=== PATIENT | female | born 1940 | race Caucasian/White ===

== ENCOUNTER → 2017-03-28 | Outpatient (CLI) | payer OTHER ==
[~2017-03-28] MED LIST: ASPI81CH43; ATEN1TAB38; ATOR10TA
[2017-03-28 13:05] LABS: Basophils # (auto) 0 uL; Basophils % (auto) 0.5 % (0.0-2.0); Eosinophils # (auto) 0.1 uL; Eosinophils % (auto) 1.9 % (0.0-7.0); Hemoglobin 15.9 g/dL (12.2-16.2); Lymphocytes # (auto) 1.8 uL; Lymphocytes % (auto) 24.1 % (10.0-50.0); Mean Corpuscular Hemoglobin 28.9 pg (28.0-32.0); Mean Corpuscular Hgb Conc. 33.1 g/dL (32.0-36.0); Mean Corpuscular Volume 87.4 fL (80.0-100.0); Mean Platelet Volume 7.4 fL (7.4-10.4); Monocytes # (auto) 0.5 uL; Monocytes % (auto) 6.2 % (0.0-12.0); Neutrophils # (auto) 4.9 uL; Neutrophils % (auto) 67.3 % (37.0-80.0); Platelet Count (auto) 365 10^3/uL (140-450); Red Cell Distribution Width 16.1 % (11.6-16.0); White Blood Cell 7.4 10^3/uL (4.4-10.8)
[2017-03-28 13:27] LABS: Partial Thromboplastin Time 28.5 sec (22.64-33.71); Prothrombin Time 10.8 sec (9.37-12.3)
[2017-03-28 13:43] LABS: Albumin 3.9 g/dL (3.4-5.0); Bilirubin, Total 0.4 mg/dL (0.2-1.0); Calcium 9.4 mg/dL (8.5-10.1); Potassium 4.2 mmol/L (3.5-5.1)
== END | disposition home or self-care (01) ==
LOC: LAB 12:46
PROVIDERS: ATTEND Internal Medicine
DX: E11.9 Type 2 diabetes mellitus without complications (principal); I10 Essential (primary) hypertension; Z01.818 Encounter for other preprocedural examination
CPT/HCPCS: 36415; 80053; 80061; 82043; 82306; 82607; 83036; 84439; 84443; 85025; 85610; 85652; 85730

== ENCOUNTER → 2017-04-19 | Outpatient (CLI) | payer OTHER ==
[2017-04-19 09:50] LABS: Basophils # (auto) 0.1 uL; Basophils % (auto) 0.9 % (0.0-2.0); Eosinophils # (auto) 0.1 uL; Eosinophils % (auto) 1.6 % (0.0-7.0); Hematocrit 47.4 % (36.0-46.0); Hemoglobin 16.1 g/dL (12.2-16.2); Lymphocytes # (auto) 1.5 uL; Mean Corpuscular Hemoglobin 29.3 pg (28.0-32.0); Mean Corpuscular Hgb Conc. 33.9 g/dL (32.0-36.0); Mean Corpuscular Volume 86.3 fL (80.0-100.0); Mean Platelet Volume 7.8 fL (7.4-10.4); Monocytes # (auto) 0.5 uL; Monocytes % (auto) 6.7 % (0.0-12.0); Neutrophils # (auto) 5.2 uL; Neutrophils % (auto) 70.8 % (37.0-80.0); Platelet Count (auto) 359 10^3/uL (140-450); Red Cell Distribution Width 15.9 % (11.6-16.0); White Blood Cell 7.4 10^3/uL (4.4-10.8)
[2017-04-19 10:05] LABS: INR 0.96 (0.9-1.15); Partial Thromboplastin Time 28.2 sec (22.64-33.71); Prothrombin Time 10.5 sec (9.37-12.3)
[2017-04-19 10:14] LABS: Albumin 3.9 g/dL (3.4-5.0); BUN/Creatinine Ratio 24.3; Bilirubin, Total 0.6 mg/dL (0.2-1.0); Calcium 9.5 mg/dL (8.5-10.1); Potassium 4.6 mmol/L (3.5-5.1); Total Protein 7.4 g/dL (6.4-8.2)
[2017-04-19 10:28] LABS: Urine Bilirubin Negative (Negative); Urine Blood Negative /uL (Negative); Urine Color Yellow (Yellow); Urine Glucose Normal (Normal); Urine Ketone Negative (Negative); Urine Nitrite Negative (Negative); Urine Urobilinogen Normal (Negative)
== END | disposition home or self-care (01) ==
LOC: LAB 09:29
PROVIDERS: ATTEND Specialist
DX: H25.11 Age-related nuclear cataract, right eye (principal); Z79.01 Long term (current) use of anticoagulants
CPT/HCPCS: 36415; 80053; 81003; 85025; 85610; 85730

== ENCOUNTER → 2017-07-31 | Outpatient (CLI) | payer OTHER ==
[2017-07-31 11:52] LABS: Basophils # (auto) 0 uL; Basophils % (auto) 0.3 % (0.0-2.0); CONDITION Y; Eosinophils # (auto) 0.2 uL; Hematocrit 44.1 % (36.0-46.0); Hemoglobin 14.7 g/dL (12.2-16.2); Lymphocytes # (auto) 1.4 uL; Lymphocytes % (auto) 17.4 % (10.0-50.0); Mean Corpuscular Hemoglobin 29.6 pg (28.0-32.0); Mean Corpuscular Hgb Conc. 33.4 g/dL (32.0-36.0); Mean Corpuscular Volume 88.7 fL (80.0-100.0); Mean Platelet Volume 7.5 fL (6.9-10.8); Monocytes # (auto) 0.5 uL; Monocytes % (auto) 6.3 % (0.0-12.0); Platelet Count (auto) 338 10^3/uL (140-450); Red Cell Distribution Width 15.7 % (11.8-14.3); White Blood Cell 8.1 10^3/uL (4.4-10.8)
[2017-07-31 12:06] LABS: INR 0.96 (0.9-1.15); Partial Thromboplastin Time 25.7 sec (22.64-33.71); Prothrombin Time 10.5 sec (9.37-12.3)
[2017-07-31 12:17] LABS: Albumin 3.6 g/dL (3.4-5.0); BUN/Creatinine Ratio 18.4; Bilirubin, Total 0.4 mg/dL (0.2-1.0); Calcium 9.2 mg/dL (8.5-10.1); Potassium 4.5 mmol/L (3.5-5.1); Total Protein 7.2 g/dL (6.4-8.2)
[2017-07-31 12:38] LABS: Urine Bilirubin Negative (Negative); Urine Blood Negative /uL (Negative); Urine Color Yellow (Yellow); Urine Glucose Normal (Normal); Urine Ketone Negative (Negative); Urine Nitrite Negative (Negative); Urine Urobilinogen Normal (Negative)
== END | disposition home or self-care (01) ==
LOC: LAB 11:22
PROVIDERS: ATTEND Specialist
DX: Z01.82 Encounter for allergy testing (principal); H25.12 Age-related nuclear cataract, left eye; D68.32 Hemorrhagic disorder due to extrinsic circulating anticoagulants; Z79.01 Long term (current) use of anticoagulants
CPT/HCPCS: 36415; 80053; 81003; 85025; 85610; 85730

== ENCOUNTER 2017-08-13 04:35 | Emergency (ER) | payer OTHER ==
[~2017-08-13] VITALS: Ht 165.1 cm; Wt 75.7 kg
[2017-08-13] MEDS ORDERED: cloNIDine HCL 0.1 MG TAB PO ONE (05:45)
[2017-08-13 05:48] LABS: Urine Bilirubin Negative (Negative); Urine Blood 3+ /uL (Negative); Urine Color Red (Yellow); Urine Glucose Normal (Normal); Urine Ketone TRACE (Negative); Urine Nitrite Negative (Negative); Urine RBC 6866 /hpf (0 - 4); Urine Urobilinogen Normal (Negative); Urine pH 6.5 (5.0-8.0)
[2017-08-13 05:53] LABS: Basophils # (auto) 0.1 uL; Basophils % (auto) 0.5 % (0.0-2.0); Eosinophils # (auto) 0.2 uL; Eosinophils % (auto) 1.2 % (0.0-7.0); Hematocrit 46.8 % (36.0-46.0); Lymphocytes # (auto) 1.5 uL; Lymphocytes % (auto) 11.8 % (10.0-50.0); Mean Corpuscular Hemoglobin 30.4 pg (28.0-32.0); Mean Corpuscular Hgb Conc. 34.3 g/dL (32.0-36.0); Mean Corpuscular Volume 88.5 fL (80.0-100.0); Mean Platelet Volume 7.4 fL (6.9-10.8); Monocytes # (auto) 0.7 uL; Monocytes % (auto) 5.6 % (0.0-12.0); Neutrophils # (auto) 10.1 uL; Neutrophils % (auto) 80.9 % (37.0-80.0); Platelet Count (auto) 296 10^3/uL (140-450); Red Cell Distribution Width 14.9 % (11.8-14.3); White Blood Cell 12.5 10^3/uL (4.4-10.8)
[2017-08-13 06:05] LABS: Albumin 3.9 g/dL (3.4-5.0); BUN/Creatinine Ratio 24.2; Bilirubin, Total 0.4 mg/dL (0.2-1.0); Calcium 9.4 mg/dL (8.5-10.1); Potassium 4.4 mmol/L (3.5-5.1); Total Protein 7.7 g/dL (6.4-8.2)
[2017-08-13 06:29] LABS: B-Type Natriuretic Peptide 112.98 pg/mL (0-100)
[2017-08-13 06:32] LABS: Temperature: 21.9 C (20.0-25.0)
[2017-08-13] MEDS ORDERED: LEVO25TA6 PO (06:45)
[2017-08-13] MEDS ORDERED: METF-370 PO (06:45)
[2017-08-13] MEDS ORDERED: cefTRIAXone 1GM/50ML D5W 50 ML IV ONE (07:00)
[2017-08-13 08:23] VITALS: BP 142/72
== END 2017-08-13 08:31 | disposition home or self-care (01) ==
LOC: EDBD 04:35 → ER 04:40
DX: D25.9 Leiomyoma of uterus, unspecified (principal); K80.20 Calculus of gallbladder without cholecystitis without obstruction; N39.0 Urinary tract infection, site not specified; N30.90 Cystitis, unspecified without hematuria; K57.90 Diverticulosis of intestine, part unspecified, without perforation or abscess without bleeding; E27.9 Disorder of adrenal gland, unspecified; E11.9 Type 2 diabetes mellitus without complications; I10 Essential (primary) hypertension; I25.2 Old myocardial infarction; E78.5 Hyperlipidemia, unspecified; Z98.51 Tubal ligation status; Z98.61 Coronary angioplasty status; Z79.899 Other long term (current) drug therapy
CPT/HCPCS: 36415; 74176; 80053; 81001; 83880; 84484; 85025; 93005; 96365; 99285; J0696

== ENCOUNTER → 2017-08-16 | Outpatient (CLI) | payer OTHER ==
[~2017-08-16] MED LIST changes: +LEVO25TA6 PO; +METF-370 PO
[2017-08-16 10:56] LABS: Cholesterol 211 mg/dL (< 200); HDL Cholesterol 61 mg/dL (40-59); LDL Cholesterol 137 mg/dL (< 100); Triglycerides 152 mg/dL (< 150)
== END | disposition home or self-care (01) ==
LOC: LAB 09:50
PROVIDERS: ATTEND Internal Medicine
DX: I10 Essential (primary) hypertension (principal); E10.9 Type 1 diabetes mellitus without complications; I25.10 Atherosclerotic heart disease of native coronary artery without angina pectoris; E03.9 Hypothyroidism, unspecified; Z98.61 Coronary angioplasty status
CPT/HCPCS: 36415; 80061; 83036; 84439; 84443

== ENCOUNTER → 2017-09-28 | Outpatient (CLI) | payer OTHER | LOC: LAB 15:24 | PROVIDERS: ATTEND Urology | DX: N39.0 Urinary tract infection, site not specified (principal); R31.9 Hematuria, unspecified ==

== ENCOUNTER → 2018-02-07 | Outpatient (CLI) | payer OTHER ==
[2018-02-07 08:52] LABS: Basophils # (auto) 0.1 uL; Basophils % (auto) 0.9 % (0.0-2.0); Eosinophils # (auto) 0.1 uL; Eosinophils % (auto) 1.9 % (0.0-7.0); Hematocrit 45.5 % (36.0-46.0); Hemoglobin 15.2 g/dL (12.2-16.2); Lymphocytes # (auto) 1.5 uL; Lymphocytes % (auto) 22.5 % (10.0-50.0); Mean Corpuscular Hemoglobin 29.5 pg (28.0-32.0); Mean Corpuscular Hgb Conc. 33.3 g/dL (32.0-36.0); Mean Corpuscular Volume 88.6 fL (80.0-100.0); Monocytes # (auto) 0.5 uL; Monocytes % (auto) 7.6 % (0.0-12.0); Neutrophils # (auto) 4.5 uL; Neutrophils % (auto) 67.1 % (37.0-80.0); Platelet Count (auto) 349 10^3/uL (140-450); Red Blood Cells 5.13 10^6/uL (4.0-5.20); Red Cell Distribution Width 14.6 % (11.8-14.3); White Blood Cell 6.7 10^3/uL (4.4-10.8)
[2018-02-07 11:04] LABS: Potassium 4.6 mmol/L (3.5-5.1)
[2018-02-07 11:05] LABS: Albumin 3.7 g/dL (3.4-5.0); BUN/Creatinine Ratio 20.4; Bilirubin, Total 0.6 mg/dL (0.2-1.0); Calcium 9.6 mg/dL (8.5-10.1); Total Protein 7.4 g/dL (6.4-8.2)
== END | disposition home or self-care (01) ==
LOC: LAB 08:34
PROVIDERS: ATTEND Internal Medicine
DX: E11.22 Type 2 diabetes mellitus with diabetic chronic kidney disease (principal); I12.9 Hypertensive chronic kidney disease with stage 1 through stage 4 chronic kidney disease, or unspecified chronic kidney disease; N18.3 Chronic kidney disease, stage 3 (moderate)
CPT/HCPCS: 36415; 80053; 80061; 83036; 84439; 84443; 85025

== ENCOUNTER → 2018-05-08 | Outpatient (CLI) | payer OTHER ==
[2018-05-08 10:22] LABS: Urine Bacteria NONE SEEN /hpf (None Seen); Urine Blood Negative /uL (Negative); Urine Specific Gravity 1.021 (1.001-1.035); Urine WBC 4 /hpf (0 - 5)
[2018-05-08 10:52] LABS: Albumin 3.6 g/dL (3.4-5.0); BUN/Creatinine Ratio 23.4; Bilirubin, Total 0.3 mg/dL (0.2-1.0); Calcium 9.3 mg/dL (8.5-10.1); Potassium 4.3 mmol/L (3.5-5.1); Total Protein 7.1 g/dL (6.4-8.2)
== END | disposition home or self-care (01) ==
LOC: LAB 09:34
PROVIDERS: ATTEND Internal Medicine
DX: I13.0 Hypertensive heart and chronic kidney disease with heart failure and stage 1 through stage 4 chronic kidney disease, or unspecified chronic kidney disease (principal); E11.22 Type 2 diabetes mellitus with diabetic chronic kidney disease; I50.9 Heart failure, unspecified; N18.3 Chronic kidney disease, stage 3 (moderate); E03.9 Hypothyroidism, unspecified; I25.10 Atherosclerotic heart disease of native coronary artery without angina pectoris; E78.5 Hyperlipidemia, unspecified; Z79.01 Long term (current) use of anticoagulants; Z79.82 Long term (current) use of aspirin; Z79.899 Other long term (current) drug therapy
CPT/HCPCS: 36415; 80053; 80061; 81001; 82043; 83036; 84443

== ENCOUNTER → 2018-06-06 | Outpatient (CLI) | payer OTHER ==
[~2018-06-06] VITALS: Ht 162.6 cm; Wt 64.9 kg
[~2018-06-06] MED LIST changes: +ADENOSINE 54 MG in GIVE UN-DILUTED 0 ML IV STA
[2018-06-06 09:45] VITALS: BP 180/97
== END | disposition home or self-care (01) ==
LOC: XY 08:47
PROVIDERS: ATTEND Internal Medicine Cardiovascular Disease
DX: I25.2 Old myocardial infarction (principal); I10 Essential (primary) hypertension; E78.5 Hyperlipidemia, unspecified; Z88.1 Allergy status to other antibiotic agents; Z87.891 Personal history of nicotine dependence; Z79.82 Long term (current) use of aspirin
CPT/HCPCS: 78452; 93017; A9500; J0153

== ENCOUNTER → 2018-06-28 | Outpatient (CLI) | payer OTHER ==
[~2018-06-28] MED LIST changes: -ADENOSINE 54 MG in GIVE UN-DILUTED 0 ML IV STA
== END | disposition home or self-care (01) ==
LOC: XYW 09:02
PROVIDERS: ATTEND Internal Medicine Cardiovascular Disease
DX: I35.1 Nonrheumatic aortic (valve) insufficiency (principal); I35.8 Other nonrheumatic aortic valve disorders; I25.2 Old myocardial infarction; I51.7 Cardiomegaly
CPT/HCPCS: 93306

== ENCOUNTER → 2018-11-20 | Outpatient (CLI) | payer OTHER, MEDICARE ==
[2018-11-20 12:15] LABS: Cholesterol 201 mg/dL (< 200); HDL Cholesterol 53 mg/dL (40-59); LDL Cholesterol 132 mg/dL (< 100); Triglycerides 170 mg/dL (< 150)
== END | disposition home or self-care (01) ==
LOC: LAB 09:39
PROVIDERS: ATTEND Internal Medicine
DX: E11.9 Type 2 diabetes mellitus without complications (principal); E78.5 Hyperlipidemia, unspecified; E55.9 Vitamin D deficiency, unspecified
CPT/HCPCS: 36415; 80061; 82306; 83036

== ENCOUNTER → 2018-12-12 | Outpatient (CLI) | payer OTHER, MEDICARE | END | disposition home or self-care (01) | LOC: LAB 12:50 | PROVIDERS: ATTEND Internal Medicine | DX: N39.0 Urinary tract infection, site not specified (principal) | CPT/HCPCS: 87086 ==

== ENCOUNTER → 2018-12-20 | Outpatient (CLI) | payer OTHER, MEDICARE | END | disposition home or self-care (01) | LOC: XYW 08:51 | PROVIDERS: ATTEND Internal Medicine | DX: I74.3 Embolism and thrombosis of arteries of the lower extremities (principal); I73.9 Peripheral vascular disease, unspecified; E11.9 Type 2 diabetes mellitus without complications | CPT/HCPCS: 93925 ==

== ENCOUNTER → 2019-02-28 | Outpatient (CLI) | payer OTHER, MEDICARE | END | disposition home or self-care (01) | LOC: LAB 15:38 | PROVIDERS: ATTEND Urology | DX: N39.0 Urinary tract infection, site not specified (principal); R35.0 Frequency of micturition; R31.1 Benign essential microscopic hematuria; R31.9 Hematuria, unspecified | CPT/HCPCS: 87086; 87088; 87186 ==

== ENCOUNTER → 2019-05-01 | Outpatient (CLI) | payer OTHER | END | disposition home or self-care (01) | LOC: LAB 09:47 | PROVIDERS: ATTEND Urology | DX: N39.0 Urinary tract infection, site not specified (principal) | CPT/HCPCS: 87086 ==

== ENCOUNTER → 2019-05-09 | Outpatient (CLI) | payer OTHER ==
[2019-05-09 10:45] LABS: Basophils # (auto) 0 uL; Basophils % (auto) 0.6 % (0.0-2.0); Eosinophils # (auto) 0.2 uL; Eosinophils % (auto) 3.3 % (0.0-7.0); Hematocrit 42.3 % (36.0-46.0); Hemoglobin 14.1 g/dL (12.2-16.2); Lymphocytes # (auto) 1.2 uL; Lymphocytes % (auto) 18.6 % (10.0-50.0); Mean Corpuscular Hemoglobin 29.2 pg (28.0-32.0); Mean Corpuscular Hgb Conc. 33.3 g/dL (32.0-36.0); Mean Corpuscular Volume 87.7 fL (80.0-100.0); Monocytes # (auto) 0.4 uL; Monocytes % (auto) 6.2 % (0.0-12.0); Neutrophils # (auto) 4.7 uL; Neutrophils % (auto) 71.3 % (37.0-80.0); Nucleated Red Blood Cells % 0.1 %; Platelet Count (auto) 317 10^3/uL (140-450); Red Blood Cells 4.82 10^6/uL (4.0-5.20); Red Cell Distribution Width 15.6 % (11.8-14.3); White Blood Cell 6.6 10^3/uL (4.4-10.8)
[2019-05-09 11:05] LABS: Albumin 3.7 g/dL (3.4-5.0); Calcium 9.8 mg/dL (8.5-10.1); Potassium 4.7 mmol/L (3.5-5.1)
[2019-05-09 11:09] LABS: BUN/Creatinine Ratio 26.5; Bilirubin, Total 0.5 mg/dL (0.2-1.0); Total Protein 7.3 g/dL (6.4-8.2)
[2019-05-09 11:14] LABS: Free T4 (Free Thyroxine) 0.92 ng/dL (0.89-1.76)
[2019-05-09 11:25] LABS: Urine Bacteria NONE SEEN /hpf (None Seen); Urine Blood Negative /uL (Negative); Urine Specific Gravity 1.018 (1.001-1.035); Urine WBC <1 /hpf (0 - 5)
== END | disposition home or self-care (01) ==
LOC: LAB 09:45
PROVIDERS: ATTEND Internal Medicine
DX: E11.21 Type 2 diabetes mellitus with diabetic nephropathy (principal); I10 Essential (primary) hypertension
CPT/HCPCS: 36415; 80053; 80061; 81001; 82043; 82607; 83036; 84439; 84443; 85025

== ENCOUNTER 2019-08-02 09:36 | Day surgery (SDC) | payer OTHER ==
[2019-07-30 15:09] LABS: INR 1.01 (0.9-1.15); Partial Thromboplastin Time 26.8 sec (23.64-32.05)
[2019-07-30 15:18] LABS: Basophils # (auto) 0.1 uL; Basophils % (auto) 1.4 % (0.0-2.0); Eosinophils # (auto) 0.1 uL; Eosinophils % (auto) 1.7 % (0.0-7.0); Hematocrit 43.1 % (36.0-46.0); Hemoglobin 14.1 g/dL (12.2-16.2); Lymphocytes # (auto) 1.3 uL; Lymphocytes % (auto) 18.6 % (10.0-50.0); Mean Corpuscular Hemoglobin 28.9 pg (28.0-32.0); Mean Corpuscular Hgb Conc. 32.7 g/dL (32.0-36.0); Mean Corpuscular Volume 88.5 fL (80.0-100.0); Monocytes # (auto) 0.4 uL; Monocytes % (auto) 5.8 % (0.0-12.0); Neutrophils # (auto) 5.1 uL; Neutrophils % (auto) 72.5 % (37.0-80.0); Nucleated Red Blood Cells % 0.1 %; Platelet Count (auto) 312 10^3/uL (140-450); Red Blood Cells 4.87 10^6/uL (4.0-5.20); White Blood Cell 7.1 10^3/uL (4.4-10.8)
[~2019-08-02] VITALS: Ht 162.6 cm; Wt 62.6 kg
[~2019-08-02 09:36] MED LIST changes: +ALPH300C PO; +ASPI-404 PO; -ASPI81CH43; -ATEN1TAB38; +ATO40T PO; -ATOR10TA; +CHOL10009 PO; +CICL8SOL3 TOP; +DIPH1TAB30 PO; +DIPH25CA6 PO; +DOCU100T15 PO; +ESCI10TA53 PO; +LIDOCAINE VISCOUS 2% 15ML UD ONE; +OXYB10TA14 PO; +PANT40TA2 PO; +SIME1CAP17 PO; +SODIUM CHLORIDE LOCK 10 ML ONE; +VALS1TAB57 PO; +diphenhdrAMINE HCL 50 MG/1 ML VL ONE
[2019-08-02] MEDS: fentaNYL CITRATE 100 MCG/2 ML VL ONE ×2 (10:10→10:13)
[2019-08-02] MEDS: MIDAZOLAM HCL 5 MG/ML-1ML VIAL ONE ×2 (10:10→10:13)
[2019-08-02 10:57] VITALS: BP 156/80
== END 2019-08-02 11:07 | disposition home or self-care (01) ==
LOC: SUR 09:36
PROVIDERS: ATTEND Internal Medicine Gastroenterology
DX: K29.50 Unspecified chronic gastritis without bleeding (principal); E11.9 Type 2 diabetes mellitus without complications; E07.9 Disorder of thyroid, unspecified; I10 Essential (primary) hypertension; E78.5 Hyperlipidemia, unspecified; I25.10 Atherosclerotic heart disease of native coronary artery without angina pectoris; Z85.3 Personal history of malignant neoplasm of breast; Z95.818 Presence of other cardiac implants and grafts; Z98.890 Other specified postprocedural states; Z88.1 Allergy status to other antibiotic agents; Z88.7 Allergy status to serum and vaccine; Z79.84 Long term (current) use of oral hypoglycemic drugs; Z79.899 Other long term (current) drug therapy; Z87.891 Personal history of nicotine dependence
CPT/HCPCS: 36415; 43239; 43450; 82962; 85025; 85610; 85730; 88305; 88342; J2250; J3010; J7030

== ENCOUNTER → 2020-09-18 | Outpatient (CLI) | payer OTHER ==
[~2020-09-18] MED LIST changes: -ASPI-404 PO; +ASPI-543 PO; -LIDOCAINE VISCOUS 2% 15ML UD ONE; -SODIUM CHLORIDE LOCK 10 ML ONE; -diphenhdrAMINE HCL 50 MG/1 ML VL ONE
[2020-09-18 08:29] LABS: Basophils # (auto) 0.1 10 ^3/uL (0-0.2); Basophils % (auto) 0.8 % (0.0-2.0); Eosinophils # (auto) 0.2 10 ^3/uL (0-0.8); Eosinophils % (auto) 3.6 % (0.0-7.0); Hematocrit 42.8 % (36.0-46.0); Hemoglobin 13.7 g/dL (12.2-16.2); Lymphocytes # (auto) 1.3 10 ^3/uL (0.4-5.4); Lymphocytes % (auto) 18.6 % (10.0-50.0); Mean Corpuscular Hemoglobin 28.2 pg (28.0-32.0); Mean Corpuscular Volume 88.1 fL (80.0-100.0); Monocytes # (auto) 0.4 10 ^3/uL (0-1.3); Neutrophils # (auto) 4.8 10 ^3/uL (1.6-8.6); Platelet Count (auto) 326 10^3/uL (140-450); Red Blood Cells 4.86 10^6/uL (4.0-5.20); White Blood Cell 6.8 10^3/uL (4.4-10.8)
[2020-09-18 08:45] LABS: Urine Bacteria NONE SEEN /hpf (None Seen); Urine Blood Negative /uL (Negative); Urine Mucus FEW (None Seen); Urine WBC 11 /hpf (0 - 5)
[2020-09-18 08:50] LABS: Albumin 3.5 g/dL (3.4-5.0); Calcium 9.7 mg/dL (8.5-10.1); Potassium 5.3 mmol/L (3.5-5.1)
[2020-09-18 08:55] LABS: BUN/Creatinine Ratio 18.3; Bilirubin, Total 0.5 mg/dL (0.2-1.0); Total Protein 7.3 g/dL (6.4-8.2)
[2020-09-18 08:58] LABS: Free T4 (Free Thyroxine) 0.83 ng/dL (0.89-1.76)
== END | disposition home or self-care (01) ==
LOC: LAB 08:11
PROVIDERS: ATTEND Internal Medicine
DX: E11.9 Type 2 diabetes mellitus without complications (principal); I10 Essential (primary) hypertension; E78.5 Hyperlipidemia, unspecified
CPT/HCPCS: 36415; 80053; 80061; 81001; 82043; 82607; 84439; 84443; 85025; 85652

== ENCOUNTER → 2022-02-17 | Outpatient (CLI) | payer OTHER ==
[~2022-02-17] MED LIST changes: +DIPH25CA29 PO; -DIPH25CA6 PO; +ESCI-28 PO; -ESCI10TA53 PO
[2022-02-17 16:37] LABS: Basophils # (auto) 0.1 10 ^3/uL (0-0.2); Basophils % (auto) 1.5 % (0.0-2.0); Eosinophils # (auto) 0.3 10 ^3/uL (0-0.8); Eosinophils % (auto) 4.7 % (0.0-7.0); Hematocrit 42.4 % (36.0-46.0); Hemoglobin 14.4 g/dL (12.2-16.2); Lymphocytes # (auto) 1.6 10 ^3/uL (0.4-5.4); Lymphocytes % (auto) 22.1 % (10.0-50.0); Mean Corpuscular Hemoglobin 29.2 pg (28.0-32.0); Mean Corpuscular Hgb Conc. 33.9 g/dL (32.0-36.0); Mean Corpuscular Volume 86.2 fL (80.0-100.0); Monocytes # (auto) 0.5 10 ^3/uL (0-1.3); Monocytes % (auto) 6.8 % (0.0-12.0); Neutrophils # (auto) 4.8 10 ^3/uL (1.6-8.6); Neutrophils % (auto) 64.9 % (37.0-80.0); Red Blood Cells 4.92 10^6/uL (4.0-5.20); Red Cell Distribution Width 15.2 % (11.8-14.3); White Blood Cell 7.4 10^3/uL (4.4-10.8)
[2022-02-17 16:53] LABS: Albumin 3.6 g/dL (3.4-5.0); Calcium 9.9 mg/dL (8.5-10.1); Potassium 5.5 mmol/L (3.5-5.1)
[2022-02-17 16:57] LABS: BUN/Creatinine Ratio 27.5; Bilirubin, Total 0.3 mg/dL (0.2-1.0); Total Protein 7.7 g/dL (6.4-8.2)
== END | disposition home or self-care (01) ==
LOC: LAB 16:03
PROVIDERS: ATTEND Internal Medicine
DX: Z01.812 Encounter for preprocedural laboratory examination (principal); E11.9 Type 2 diabetes mellitus without complications; N18.30 Chronic kidney disease, stage 3 unspecified
CPT/HCPCS: 36415; 80053; 83036; 84439; 84443; 85025

== ENCOUNTER → 2022-06-09 | Outpatient (CLI) | payer OTHER ==
[2022-06-09 10:39] LABS: Basophils # (auto) 0.1 10 ^3/uL (0-0.2); Basophils % (auto) 1.1 % (0.0-2.0); Eosinophils # (auto) 0.4 10 ^3/uL (0-0.8); Eosinophils % (auto) 4.8 % (0.0-7.0); Hematocrit 41.3 % (36.0-46.0); Hemoglobin 13.8 g/dL (12.2-16.2); Lymphocytes # (auto) 1.5 10 ^3/uL (0.4-5.4); Mean Corpuscular Hemoglobin 28.9 pg (28.0-32.0); Mean Corpuscular Hgb Conc. 33.4 g/dL (32.0-36.0); Mean Corpuscular Volume 86.6 fL (80.0-100.0); Monocytes # (auto) 0.5 10 ^3/uL (0-1.3); Monocytes % (auto) 6.4 % (0.0-12.0); Neutrophils # (auto) 5.5 10 ^3/uL (1.6-8.6); Neutrophils % (auto) 68.7 % (37.0-80.0); Red Blood Cells 4.78 10^6/uL (4.0-5.20); Red Cell Distribution Width 15.1 % (11.8-14.3)
[2022-06-09 11:21] LABS: Albumin 3.5 g/dL (3.4-5.0); Calcium 9.6 mg/dL (8.5-10.1); Potassium 4.4 mmol/L (3.5-5.1)
[2022-06-09 11:26] LABS: BUN/Creatinine Ratio 26.4; Bilirubin, Total 0.6 mg/dL (0.2-1.0); Total Protein 7.3 g/dL (6.4-8.2)
== END | disposition home or self-care (01) ==
LOC: LAB 10:16
PROVIDERS: ATTEND Internal Medicine
DX: E11.22 Type 2 diabetes mellitus with diabetic chronic kidney disease (principal); N18.30 Chronic kidney disease, stage 3 unspecified
CPT/HCPCS: 36415; 80053; 83036; 85025

== ENCOUNTER → 2022-10-20 | Outpatient (CLI) | payer OTHER ==
[2022-10-20 09:40] LABS: Basophils # (auto) 0.1 10 ^3/uL (0-0.2); Basophils % (auto) 0.9 % (0.0-2.0); Eosinophils # (auto) 0.3 10 ^3/uL (0-0.8); Eosinophils % (auto) 4.1 % (0.0-7.0); Hematocrit 45.3 % (36.0-46.0); Hemoglobin 14.5 g/dL (12.2-16.2); Lymphocytes # (auto) 1.4 10 ^3/uL (0.4-5.4); Lymphocytes % (auto) 19.1 % (10.0-50.0); Mean Corpuscular Hemoglobin 28.1 pg (28.0-32.0); Mean Corpuscular Hgb Conc. 32.1 g/dL (32.0-36.0); Mean Corpuscular Volume 87.6 fL (80.0-100.0); Monocytes # (auto) 0.4 10 ^3/uL (0-1.3); Monocytes % (auto) 5.9 % (0.0-12.0); Neutrophils # (auto) 5.2 10 ^3/uL (1.6-8.6); Nucleated Red Blood Cells % 0.1 %; Red Blood Cells 5.17 10^6/uL (4.0-5.20); Red Cell Distribution Width 15.6 % (11.8-14.3); White Blood Cell 7.4 10^3/uL (4.4-10.8)
[2022-10-20 10:19] LABS: Albumin 3.7 g/dL (3.4-5.0); Calcium 9.6 mg/dL (8.5-10.1); Potassium 4.8 mmol/L (3.5-5.1); Uric Acid 5.4 mg/dL (2.6-6.0)
[2022-10-20 10:23] LABS: BUN/Creatinine Ratio 17.9; Bilirubin, Total 0.4 mg/dL (0.2-1.0); Total Protein 7.3 g/dL (6.4-8.2)
[2022-10-20 10:32] LABS: Micro Albumin 45.1 mg/L (0-30.0)
== END | disposition home or self-care (01) ==
LOC: LAB 09:24
PROVIDERS: ATTEND Internal Medicine
DX: E11.22 Type 2 diabetes mellitus with diabetic chronic kidney disease (principal); N18.30 Chronic kidney disease, stage 3 unspecified
CPT/HCPCS: 36415; 80053; 80061; 82043; 82570; 83036; 84439; 84443; 84550; 85025; 85652

== ENCOUNTER 2023-02-05 04:40 | Emergency (ER) | payer OTHER ==
[~2023-02-05] VITALS: Ht 162.6 cm; Wt 134.4 kg
[2023-02-05 06:29] LABS: Basophils # (auto) 0.1 10 ^3/uL (0-0.2); Basophils % (auto) 0.7 % (0.0-2.0); Eosinophils # (auto) 0 10 ^3/uL (0-0.8); Eosinophils % (auto) 0.5 % (0.0-7.0); Hematocrit 43.5 % (36.0-46.0); Hemoglobin 14.6 g/dL (12.2-16.2); Lymphocytes % (auto) 11.7 % (10.0-50.0); Mean Corpuscular Hemoglobin 28.7 pg (28.0-32.0); Mean Corpuscular Hgb Conc. 33.6 g/dL (32.0-36.0); Mean Corpuscular Volume 85.6 fL (80.0-100.0); Monocytes # (auto) 0.3 10 ^3/uL (0-1.3); Monocytes % (auto) 4.2 % (0.0-12.0); Neutrophils # (auto) 6.8 10 ^3/uL (1.6-8.6); Neutrophils % (auto) 82.9 % (37.0-80.0); Red Blood Cells 5.08 10^6/uL (4.0-5.20); Red Cell Distribution Width 15.9 % (11.8-14.3); White Blood Cell 8.2 10^3/uL (4.4-10.8)
[2023-02-05 06:45] LABS: Albumin 3.7 g/dL (3.4-5.0); Calcium 9.8 mg/dL (8.5-10.1); Potassium 4.3 mmol/L (3.5-5.1)
[2023-02-05 06:48] LABS: BUN/Creatinine Ratio 16.5 (10.0-20.0); Bilirubin, Total 0.4 mg/dL (0.2-1.0); Total Protein 7.6 g/dL (6.4-8.2)
[2023-02-05] MEDS ORDERED: MECLIZINE HCL 25 MG TAB PO ONE (08:15)
[2023-02-05] MEDS ORDERED: MECL1TAB42 PO (08:51)
[2023-02-05 11:37] LABS: Urine Bacteria NONE SEEN /hpf (None Seen); Urine Blood Negative /uL (Negative); Urine Hyaline Cast FEW /lpf (0 - 2); Urine Mucus FEW (None Seen); Urine WBC 53 /hpf (0 - 5)
[2023-02-05 12:51] VITALS: BP 148/76
== END 2023-02-05 12:55 | disposition home or self-care (01) ==
LOC: EDBD 04:40 → ER 04:40 → EDUNIT# 04:40 → ER 12:53
DX: R42 Dizziness and giddiness (principal); E78.5 Hyperlipidemia, unspecified; I25.2 Old myocardial infarction; Z86.73 Personal history of transient ischemic attack (TIA), and cerebral infarction without residual deficits; Z98.51 Tubal ligation status; Z98.61 Coronary angioplasty status
CPT/HCPCS: 36415; 70450; 80053; 81001; 83605; 83880; 84484; 85025; 93005; 99285; J8597

== ENCOUNTER → 2023-03-07 | Outpatient (CLI) | payer OTHER ==
[~2023-03-07] MED LIST changes: +MECL1TAB42 PO
== END | disposition home or self-care (01) ==
LOC: XYW 08:37
DX: I70.201 Unspecified atherosclerosis of native arteries of extremities, right leg (principal)
CPT/HCPCS: 93925

== ENCOUNTER 2023-04-06 04:38 | Emergency (ER) | payer OTHER ==
[~2023-04-06] VITALS: Ht 162.6 cm; Wt 58.6 kg
[~2023-04-06 04:38] MED LIST changes: +CICL8SOL21 TOP; -CICL8SOL3 TOP; +DIPH-753 PO; -DIPH25CA29 PO; -ESCI-28 PO; +ESCI1TAB36 PO
[2023-04-06 06:23] LABS: Basophils # (auto) 0.1 10 ^3/uL (0-0.2); Basophils % (auto) 0.4 % (0.0-2.0); Eosinophils # (auto) 0 10 ^3/uL (0-0.8); Eosinophils % (auto) 0.3 % (0.0-7.0); Hematocrit 37.4 % (36.0-46.0); Hemoglobin 12.5 g/dL (12.2-16.2); Lymphocytes # (auto) 0.4 10 ^3/uL (0.4-5.4); Lymphocytes % (auto) 3.6 % (10.0-50.0); Mean Corpuscular Hemoglobin 28.8 pg (28.0-32.0); Mean Corpuscular Hgb Conc. 33.5 g/dL (32.0-36.0); Monocytes # (auto) 0.3 10 ^3/uL (0-1.3); Monocytes % (auto) 2.2 % (0.0-12.0); Neutrophils # (auto) 10.8 10 ^3/uL (1.6-8.6); Neutrophils % (auto) 93.5 % (37.0-80.0); Nucleated Red Blood Cells % 0.1 %; Red Blood Cells 4.35 10^6/uL (4.0-5.20); Red Cell Distribution Width 16.2 % (11.8-14.3); White Blood Cell 11.6 10^3/uL (4.4-10.8)
[2023-04-06] MEDS ORDERED: SODIUM CHLORIDE 0.9% 500 ML IV ONE (06:45)
[2023-04-06 06:51] LABS: Albumin 3.5 g/dL (3.4-5.0); Calcium 9.4 mg/dL (8.5-10.1); Potassium 4.8 mmol/L (3.5-5.1)
[2023-04-06 06:53] LABS: Urine Bacteria NONE SEEN /hpf (None Seen); Urine Blood Negative /uL (Negative); Urine Hyaline Cast FEW /lpf (0 - 2); Urine Specific Gravity 1.016 (1.001-1.035); Urine WBC 4 /hpf (0 - 5)
[2023-04-06 06:54] LABS: BUN/Creatinine Ratio 29.4 (10.0-20.0); Bilirubin, Total 0.3 mg/dL (0.2-1.0)
[2023-04-06] MEDS ORDERED: NITR-87 PO (07:49)
[2023-04-06 08:29] VITALS: BP 127/61
== END 2023-04-06 10:22 | disposition home or self-care (01) ==
LOC: ER 04:38 → EDBD 04:38 → ER 10:21
DX: R35.0 Frequency of micturition (principal); N39.0 Urinary tract infection, site not specified; I10 Essential (primary) hypertension; E78.5 Hyperlipidemia, unspecified; I25.2 Old myocardial infarction; Z98.51 Tubal ligation status; Z98.61 Coronary angioplasty status; Z79.899 Other long term (current) drug therapy; Z88.8 Allergy status to other drugs, medicaments and biological substances
CPT/HCPCS: 36415; 71045; 74176; 80053; 81001; 83690; 84484; 85025; 93005; 96360; 96361; 99285; J7040

== ENCOUNTER → 2023-04-12 | Outpatient (CLI) | payer OTHER ==
[~2023-04-12] MED LIST changes: +NITR-87 PO
[2023-04-12 10:33] LABS: Cholesterol 193 mg/dL (< 200)
[2023-04-12 10:36] LABS: HDL Cholesterol 52 mg/dL (40-59); LDL Cholesterol 117 mg/dL (< 100); Triglycerides 142 mg/dL (< 150)
== END | disposition home or self-care (01) ==
LOC: LAB 09:37
DX: E78.5 Hyperlipidemia, unspecified (principal)
CPT/HCPCS: 36415; 80061

== ENCOUNTER → 2023-09-11 | Outpatient (CLI) | payer OTHER ==
[2023-09-11 11:46] LABS: Alanine Aminotransferase 22 U/L (7-40); Albumin 4.8 g/dL (3.2-4.8); Alkaline Phosphatase 78 U/L (46-116); Anion Gap 7 (5-15); Aspartate Aminotransferase 19 U/L (13-40); BUN/Creatinine Ratio 18.2 (10.0-20.0); Blood Urea Nitrogen 18 mg/dL (9-23); Calcium 10.1 mg/dL (8.5-10.1); Carbon Dioxide 27 mmol/L (20-30); Chloride 106 mmol/L (98-107); Cholesterol 159 mg/dL (< 200); Glucose 138 mg/dL (74-106); HDL Cholesterol 67 mg/dL (40-59); LDL Cholesterol 67 mg/dL (< 100); Potassium 4.5 mmol/L (3.5-5.1); Sodium 140 mmol/L (136-145); Triglycerides 70 mg/dL (< 150)
[2023-09-11 11:47] LABS: Bilirubin, Total 0.7 mg/dL (0.2-1.0); Total Protein 7.4 g/dL (5.7-8.2)
== END | disposition home or self-care (01) ==
LOC: LAB 09:38
PROVIDERS: ATTEND Internal Medicine
DX: E11.22 Type 2 diabetes mellitus with diabetic chronic kidney disease (principal); N18.30 Chronic kidney disease, stage 3 unspecified
CPT/HCPCS: 36415; 80053; 80061; 83036; 84439; 84443

== ENCOUNTER → 2024-03-28 | Outpatient (CLI) | payer OTHER ==
[~2024-03-28] MED LIST changes: -ATO40T PO; +ATOR-507 PO
[2024-03-28 12:30] LABS: Basophils # (auto) 0 10 ^3/uL (0-0.2); Basophils % (auto) 0.4 % (0.0-2.0); Eosinophils # (auto) 0.2 10 ^3/uL (0-0.8); Eosinophils % (auto) 1.9 % (0.0-7.0); Hematocrit 42.9 % (36.0-46.0); Lymphocytes # (auto) 1.4 10 ^3/uL (0.4-5.4); Lymphocytes % (auto) 17.8 % (10.0-50.0); Mean Corpuscular Hemoglobin 28.6 pg (28.0-32.0); Mean Corpuscular Hgb Conc. 32.6 g/dL (32.0-36.0); Mean Corpuscular Volume 87.6 fL (80.0-100.0); Monocytes # (auto) 0.7 10 ^3/uL (0-1.3); Monocytes % (auto) 8.1 % (0.0-12.0); Neutrophils # (auto) 5.8 10 ^3/uL (1.6-8.6); Neutrophils % (auto) 71.8 % (37.0-80.0); Red Cell Distribution Width 16.7 % (11.8-14.3); White Blood Cell 8.1 10^3/uL (4.4-10.8)
[2024-03-28 13:11] LABS: Alanine Aminotransferase 16 U/L (7-40); Albumin 4.4 g/dL (3.2-4.8); Alkaline Phosphatase 72 U/L (46-116); Anion Gap 5 (5-15); Aspartate Aminotransferase 15 U/L (13-40); BUN/Creatinine Ratio 21.1 (10.0-20.0); Bilirubin, Total 0.5 mg/dL (0.2-1.0); Blood Urea Nitrogen 24 mg/dL (9-23); Calcium 10.3 mg/dL (8.7-10.4); Carbon Dioxide 28 mmol/L (20-30); Chloride 106 mmol/L (98-107); Glucose 128 mg/dL (74-106); Potassium 5.4 mmol/L (3.5-5.1); Sodium 139 mmol/L (136-145); Total Protein 7.3 g/dL (5.7-8.2)
== END | disposition home or self-care (01) ==
LOC: LAB 12:18
PROVIDERS: ATTEND Internal Medicine
DX: E11.9 Type 2 diabetes mellitus without complications (principal); I10 Essential (primary) hypertension
CPT/HCPCS: 36415; 80053; 83036; 85025

== ENCOUNTER → 2024-04-29 | Outpatient (CLI) | payer OTHER | END | disposition home or self-care (01) | LOC: LAB 13:11 | PROVIDERS: ATTEND Internal Medicine | DX: E87.5 Hyperkalemia (principal); I11.0 Hypertensive heart disease with heart failure; I50.32 Chronic diastolic (congestive) heart failure | CPT/HCPCS: 36415; 83880; 84132 ==

== ENCOUNTER 2024-07-17 15:36 | Emergency (ER) | payer OTHER ==
[~2024-07-17] VITALS: Ht 162.6 cm; Wt 102.0 kg
[2024-07-17 16:17] VITALS: PULSE 85; RESP 18; O2SAT 89
[2024-07-17 18:16] LABS: Basophils # (auto) 0 10 ^3/uL (0-0.2); Basophils % (auto) 0.6 % (0.0-2.0); Eosinophils # (auto) 0.2 10 ^3/uL (0-0.8); Eosinophils % (auto) 2.6 % (0.0-7.0); Hematocrit 38.7 % (36.0-46.0); Lymphocytes # (auto) 1.4 10 ^3/uL (0.4-5.4); Lymphocytes % (auto) 17.2 % (10.0-50.0); Mean Corpuscular Hemoglobin 29.7 pg (28.0-32.0); Mean Corpuscular Hgb Conc. 33.7 g/dL (32.0-36.0); Mean Corpuscular Volume 88.2 fL (80.0-100.0); Monocytes # (auto) 0.6 10 ^3/uL (0-1.3); Monocytes % (auto) 7.7 % (0.0-12.0); Neutrophils % (auto) 71.9 % (37.0-80.0); Platelet Count (auto) 365 10^3/uL (140-450); Red Blood Cells 4.38 10^6/uL (4.0-5.20); Red Cell Distribution Width 16.1 % (11.8-14.3); White Blood Cell 8.3 10^3/uL (4.4-10.8)
[2024-07-17 18:42] LABS: Chloride 106 mmol/L (98-107); Potassium 4.1 mmol/L (3.5-5.1); Sodium 138 mmol/L (136-145)
[2024-07-17 18:43] LABS: Anion Gap 8 (5-15); Calcium 9.9 mg/dL (8.7-10.4); Carbon Dioxide 24 mmol/L (20-30)
[2024-07-17 18:48] LABS: BUN/Creatinine Ratio 18.2 (10.0-20.0); Blood Urea Nitrogen 24 mg/dL (9-23); Glucose 100 mg/dL (74-106)
[2024-07-17 20:27] LABS: Urine Bacteria FEW /hpf (None Seen); Urine Blood Negative /uL (Negative); Urine Clarity Clear (Clear); Urine Color Colorless (Yellow); Urine Protein, UAD Negative (Negative); Urine Specific Gravity 1.007 (1.001-1.035); Urine Urobilinogen Normal (Negative); Urine WBC 1 /hpf (0 - 5)
[2024-07-17] MEDS: SODIUM CHLORIDE 0.9% 500 ML IV ONE (20:36)
[2024-07-17 21:50] VITALS: BP 155/67; PULSE 85; RESP 16; TEMP 98.2; O2SAT 92
== END 2024-07-17 21:53 | disposition home or self-care (01) ==
LOC: ER 15:36
DX: N28.9 Disorder of kidney and ureter, unspecified (principal); I25.10 Atherosclerotic heart disease of native coronary artery without angina pectoris; E78.5 Hyperlipidemia, unspecified; I25.2 Old myocardial infarction; I10 Essential (primary) hypertension; Z98.51 Tubal ligation status; Z87.891 Personal history of nicotine dependence; Z79.899 Other long term (current) drug therapy; Z88.8 Allergy status to other drugs, medicaments and biological substances
CPT/HCPCS: 36415; 71045; 80048; 81001; 83880; 84484; 85025; 93005

== ENCOUNTER 2024-11-09 18:15 | Inpatient (IN) | payer OTHER ==
[~2024-11-09] VITALS: Ht 165.1 cm; Wt 98.0 kg
[2024-11-09 14:04] VITALS: PULSE 80; RESP 18; O2SAT 95
--- NOTE | 2024-11-09 18:42 | ED.PDOC ---
SOB-HPI HPI Comments 84 year old female brought in by EMS presents to the ED with a chief complaint of shortness of breath onset 11/06/2024. Patient states she began experiencing fever, chills, body aches, generalized weakness, dizziness, cough with phlegm, diarrhea, loss of appetite, shortness of breath for the past 3 days. Upon EMS arrival patient's O2 sat was 79-80%, Meb neb treatment was given and placed on 4 L of O2 and O2 sat is currently 88%, patient is not on oxygen at home. Patient has been taking Tylenol for her symptoms with no improvement. Past medical history of CAD, hypotension, HLD, [place]. Denies chest pain, abdominal pain, nausea, vomiting, dysuria, hematuria. No other symptoms or modifying factors present at this time. 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 IN CHARGE History: Denies all BROKER IN CHARGE Hx Family History Family History: No family hx of HTN, Family hx of heart ksenia Social History Smoker: Quit Greater Than 1 Year Alcohol: Rarely Drugs: Denies Drug Use Lives In: Home Constitutional: reports: chills, fever, weakness; denies: diaphoresis, fatigue, malaise, sweats, others EENTM: denies: blurred vision, double vision, ear bleeding, ear discharge, ear drainage, ear pain, ear ringing, eye pain, eye redness, hearing loss, mouth pain, mouth swelling, nasal discharge, nose bleeding, nose congestion, nose pain, photophobia, tearing, throat pain, throat swelling, voice changes, others Respiratory: reports: cough, shortness of breath; denies: hemoptysis, orthopnea, SOB at rest, SOB with excertion, stridor, wheezing, others Cardiovascular: denies: chest pain, dizzy spells, diaphoresis, Dyspnea on exertion, edema, irregular heart beat, left arm pain, lightheadedness, palpitations, PND, syncope, others Gastrointestinal: reports: diarrhea; denies: abdomen distended, abdominal pain, blood streaked bowels, constipated, dysphagia, difficulty swallowing, hematemesis, melena, nausea, poor appetite, poor fluid intake, rectal bleeding, rectal pain, vomiting, others Genitourinary: denies: abnormal vagina bleeding, burning, dyspareunia, dysuria, flank pain, frequency, hematuria, incontinence, pain, , vagina discharge, urgency, others Neurological: reports: dizziness; denies: fainting, headache, left sided numbness, left sided weakness, numbness, paresthesia, pre-existing deficit, right sided numbness, right sided weakness, seizure, speech problems, tingling, tremors, weakness, others Musculoskeletal: denies: back pain, gout, joint pain, joint swelling, muscle pain, muscle stiffness, neck pain, others Integumetry: denies: bruises, change in color, change in hair/nails, dryness, laceration, lesions, lumps, rash, wounds, others Allergic/Immunocompromised: denies: Difficulty Healing, Frequent Infections, Hives, Itching, others Hematologic/Lymphatic: denies: anemia, blood clots, easy bleeding, easy bruising, swollen glands, others Endocrine: denies: excessive hunger, excessive sweating, excessive thirst, excessive urination, flushing, intolerance to cold, intolerance to heat, unexplained weight gain, unexplained weight loss, others Psychiatric: denies: anxiety, bipolar disorder, depression, hopeless, panic disorder, schizophrenia, sleepless, suicidal, others All Other Systems: Reviewed and Negative Physical Exam General Appearance: Moderate Distress, Normal HEENT: Normal ENT Inspection, Pharynx Normal, TMs Normal Neck: Full Range of Motion, Non-Tender, Normal, Normal Inspection Respiratory: Chest Non-Tender, Decreased Breath Sounds, No Accessory Muscle Use, Respiratory Distress Cardiovascular: No Edema, No JVD, No Murmur, No Gallop, Normal Peripheral Pul ses, Regular Rate/Rhythm Breast Exam: Deferred Gastrointestinal: No Organomegaly, Non Tender, No Pulsatile Mass, Normal Bowel Sounds, Soft Genitalia: Deferred Pelvic: Deferred Rectal: Deferred Extremities: No calf tenderness, Normal capillary refill, Normal inspection, Normal range of motion, Non-tender, No pedal edema Musculoskeletal : Apperance: Normal Neurologic: Alert, delicatessen clerk II-XII nml as Tested, No Motor Deficits, Normal Affect, Normal Mood, No Sensory Deficits Cerebellar Function: Normal Reflexes: Normal Skin: Dry, Normal Color, Warm Lymphatic: No Adenopathy Was a procedure done? Was a procedure done?: No Differential Dx Differential Diagnosis: Asthma, Cardiogenic Shock, CHF, COPD, Myocardial infarction, Pneumonia, Other X-Ray, Labs, Meds, VS Vital Signs Date Time Temp Pulse Resp B/P (MAP) Pulse Ox O2 Delivery O2 Flow Rate FiO2 11/09/24 21:53 133 117/66 (83) 89 11/09/24 21:34 131 30 108/58 (75) 90 11/09/24 21:24 146 28 101/59 (73) 90 11/09/24 21:10 122 28 95/59 (71) 90 11/09/24 20:48 136 20 98/54 (69) 90 11/09/24 20:33 132 22 99/50 (66) 90 11/09/24 20:30 Nasal Cannula* 5 N/A Oxymizer 11/09/24 20:18 137 22 91/52 (65) 11/09/24 20:03 151 108/57 11/09/24 20:00 98.8 152 18 108/57 (74) 98.8 11/09/24 18:59 99.0 128 24 98/54 (69) 98 99.0 11/09/24 18:52 149 112/62 11/09/24 18:51 85 161/97 11/09/24 18:26 98.9 120 20 112/62 (79) 89 11/09/24 18:15 165 Lab Test 11/09/24 21:59 11/09/24 20:27 11/09/24 20:05 Range/Units Troponin I High Sensitivity 79 *H 82 *H </=34 ng/L White Blood Count 17.1 H 4.4-10.8 10^3/uL Red Blood Count 3.98 L 4.0-5.20 10^6/uL Hemoglobin 11.4 L 12.2-16.2 g/dL Hematocrit 34.9 L 36.0-46.0 % Mean Corpuscular Volume 87.8 80.0-100.0 fL Mean Corpuscular Hemoglobin 28.7 28.0-32.0 pg Mean Corpuscular Hemoglobin Concent 32.6 32.0-36.0 g/dL Red Cell Distribution Width 16.1 H 11.8-14.3 % Platelet Count 290 140-450 10^3/uL Mean Platelet Volume 7.5 6.9-10.8 fL Neutrophils (%) (Auto) 37.0-80.0 % Lymphocytes (%) (Auto) 10.0-50.0 % Monocytes (%) (Auto) 0.0-12.0 % Basophils (%) (Auto) 0.0-2.0 % Neutrophils # (Auto) 1.6-8.6 10 ^3/uL Lymphocytes # (Auto) 0.4-5.4 10 ^3/uL Monocytes # (Auto) 0-1.3 10 ^3/uL Differential Total Cells Counted 100.0 100 Neutrophils % (Manual) 77 37.0-80.0 Band Neutrophils % (Manual) 13 Lymphocytes % (Manual) 4 L 10.0-50.0 Monocytes % (Manual) 6 0-12 Eosinophils % (Manual) 0 0-7 Basophils % (Manual) 0 0.0-2.0 Metamyelocytes % (manual) 0 Myelocytes % (Manual) 0 Promyelocytes % (Manual) 0 Blast Cells % (Manual) 0 Reactive Lymphocytes 0 Platelet Estimate Adequate Sodium Level 136 136-145 mmol/L Potassium Level 3.5 3.5-5.1 mmol/L Chloride Level 103 98-107 mmol/L Carbon Dioxide Level 23 20-31 mmol/L Anion Gap 10 5-15 Blood Urea Nitrogen 49 H 9-23 mg/dL Creatinine 1.55 H 0.550-1.02 mg/dL Glomerular Filtration Rate Calc 32 >90 mL/min BUN/Creatinine Ratio 31.6 H 10.0-20.0 Serum Glucose 167 H 74-106 mg/dL Calcium Level 9.1 8.7-10.4 mg/dL Magnesium Level 1.7 1.6-2.6 mg/dL Total Bilirubin 0.8 0.2-1.0 mg/dL Aspartate Amino Transferase (AST) 29 13-40 U/L Alanine Aminotransferase (ALT) 14 7-40 U/L Alkaline Phosphatase 101 46-116 U/L B-Type Natriuretic Peptide 265.42 0-100 pg/mL Total Protein 5.4 L 5.7-8.2 g/dL Albumin 3.5 3.2-4.8 g/dL Thyroid Stimulating Hormone (TSH) 4.67 0.55-4.78 uIU/mL Free Thyroxine (T4) Calculated Pending Influenza Type A Antigen Negative Negative Influenza Type B Antigen Negative Negative Current Medications Medications (Trade) Dose Ordered Sig/Elke Route Start Time Stop Time Status Last Admin Metoprolol Tartrate (Lopressor) 5 mg Q5M IV 11/09/24 18:30 11/09/24 18:51 DC 11/09/24 20:03 [place] [id number] Ph: [phone] DIAGNOSTIC IMAGING Diagnostic Imaging Report : [id number] Signed PATIENT: CLAUS YU ACCT: [id number] UNIT: [id number] : 1940 LOC: ER ROOM / BED: / AGE / SEX: 84 / F ADM STATUS: REG ER SERVICE 31 ORDERING PHYSICIAN: JARROD GUTIERREZ MD PROCEDURE(s): CXRP - CHEST PORTABLE REASON: SOB ORDER NUMBER(s): [id number], ACCESSION NUMBER(s): [id number] CHEST RADIOGRAPH Indication: SOB Technique: Single frontal view of the chest was obtained Comparison: XY CHEST XRAY 1 VIEW on DOS: 07/17/24, XY CHEST PORTABLE on DOS: 04/06/23 FINDINGS: Lines and Tubes: None Lungs: Right mid and lower lung zone opacification. Mild interstitial prominence. Pleura: No effusion. No pneumothorax. Cardiomediastinal contours: Heart size is within normal limits. Moderate atherosclerotic calcification and uncoiling of the aorta. Bones: No acute osseous abnormality. IMPRESSION: Mild interstitial prominence with right mid and lower lung zone opacification which may represent pneumonia. ATED BY: DAISY BANKS DO DICTATED DATE/TIME: 11/09/242049 SIGNED BY: DAISY BANKS DO SIGNED DATE/TIME: 11/09/242049 CC: Time of 1ST Reevaluation: 18:50 Reevaluation 1ST: Unchanged Time of 2ND Reevaluation: 22:39 Reevaluation 2ND: Unchanged Patient Education/Counseling: Diagnosis, Treatment, Prognosis Family Education/Counseling: No Family Present Additional Information I reviewed the following notes from patient's past medical encounters: The following tests were ordered, and results were reviewed by me: TROP, CBC, CMP, BNP, XY CHEST, MAGNESIUM, TROP, TROP, THYROID STIMULATING HORMONE, FREE T4, RAPID INFLUENZA A&B, LA W/ REFLEX, Additional Information was gathered from interviewing the following independent historians: EMS I reviewed and agreed with the following test results read by other providers: XY CHEST I discussed treatment and results with medical personnel and: patient Departure 1 Departure Time of Disposition: 22:39 Impression: Primary Impression: Respiratory failure with hypoxia Additional Impressions: Pneumonia Intermediate coronary syndrome Disposition: ADMITTED INPATIENT Admit to: Tele Condition: Guarded Critical Care Note Critical Care Time?: Yes (35 min-critical care time only) Critical care comment: Total critical care time: Approximately 36 minutes Due to a high probability of clinically significant, life threatening deterioration, the patient required my highest level of preparedness to intervene emergently and I personally spent this critical care time directly and personally managing the patient. This critical care time included obtaining a history; examining the patient; pulse oximetry; ordering and review of studies; arranging urgent treatment with development of a management plan; evaluation of patient's response to treatment; frequent reassessment; and, discussions with other providers. This critical care time was performed to assess and manage the high probability of imminent, life-threatening deterioration that could result in multi-organ failure. It was exclusive of separately billable procedures and treating other patients. Stability Stability form required: No Heart Score Heart Score: Heart Score Response (Comments) Value History Moderate Suspicious 1 EKG Normal 0 Age >65 2 Risk Factors 1 or 2 risk factors 1 Troponin 1-2 x's Normal limit 1 Total 5 I personally scribed for JARROD GUTIERREZ MD ([email or web address]) on 11/09/24 at 18:42. Electronically submitted by Naomie Fitch ([email or web address]). I personally scribed for JARROD GUTIERREZ MD ([email or web address]) on 11/09/24 at 18:48. Electronically submitted by Naomie Fitch ([email or web address]). I personally scribed for JARROD GUTIERREZ MD ([email or web address]) on 12/28/24 at 20:59. Electronically submitted by Naomie Fitch ([email or web address]). JARROD GUTIERREZ MD Nov 09, 2024 18:42
[2024-11-09] MEDS: METOPROLOL TARTRATE 1MG/1ML-5ML VIAL IV ONE (18:51)
[2024-11-09] MEDS: METOPROLOL TARTRATE 1MG/1ML-5ML VIAL IV SCH (18:52)
--- NOTE | 2024-11-09 19:19 | ECG ---
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
--- NOTE | 2024-11-09 20:53 | DVH ---
CHEST RADIOGRAPH Indication: SOB Technique: Single frontal view of the chest was obtained Comparison: XY CHEST XRAY 1 VIEW on DOS: 07/17/24, XY CHEST PORTABLE on DOS: 04/06/23 FINDINGS: Lines and Tubes: None Lungs: Right mid and lower lung zone opacification. Mild interstitial prominence. Pleura: No effusion. No pneumothorax. Cardiomediastinal contours: Heart size is within normal limits. Moderate atherosclerotic calcificati on and uncoiling of the aorta. Bones: No acute osseous abnormality. IMPRESSION: Mild interstitial prominence with right mid and lower lung zone opacification which may represent pne umonia.
[2024-11-09 20:56] LABS: Alanine Aminotransferase 14 U/L (7-40); Albumin 3.5 g/dL (3.2-4.8); Alkaline Phosphatase 101 U/L (46-116); Anion Gap 10 (5-15); Aspartate Aminotransferase 29 U/L (13-40); BUN/Creatinine Ratio 31.6 (10.0-20.0); Bilirubin, Total 0.8 mg/dL (0.2-1.0); Calcium 9.1 mg/dL (8.7-10.4); Carbon Dioxide 23 mmol/L (20-31); Chloride 103 mmol/L (98-107); Magnesium 1.7 mg/dL (1.6-2.6); Potassium 3.5 mmol/L (3.5-5.1); Sodium 136 mmol/L (136-145)
[2024-11-09 21:04] LABS: Blood Urea Nitrogen 49 mg/dL (9-23); Glucose 167 mg/dL (74-106); Total Protein 5.4 g/dL (5.7-8.2)
[2024-11-09 21:06] LABS: Rapid Influenza A Negative (Negative); Rapid Influenza B Negative (Negative)
[2024-11-09 21:12] LABS: Hematocrit 34.9 % (36.0-46.0); Hemoglobin 11.4 g/dL (12.2-16.2); Mean Corpuscular Hemoglobin 28.7 pg (28.0-32.0); Mean Corpuscular Hgb Conc. 32.6 g/dL (32.0-36.0); Mean Corpuscular Volume 87.8 fL (80.0-100.0); Platelet Count (auto) 290 10^3/uL (140-450); Red Blood Cells 3.98 10^6/uL (4.0-5.20); Red Cell Distribution Width 16.1 % (11.8-14.3); White Blood Cell 17.1 10^3/uL (4.4-10.8)
[2024-11-09 21:18] LABS: Basophils % (manual) 0 (0.0-2.0); Blast Cells 0; Eosinophils % (manual) 0 (0-7); Metamyelocytes % 0; Myelocytes % 0; Promyelocytes % 0; Reactive Lymphocytes 0
[2024-11-09 22:02] LABS: Band Neutrophils % (manual) 13; Lymphocytes % (manual) 4 (10.0-50.0); Monocytes % (manual) 6 (0-12); Platelet Estimate Adequate
[2024-11-09] MEDS ORDERED: DEXTROSE (50%) 50ML SYRG IV PRN (22:45)
[2024-11-09] MEDS ORDERED: ACETAMINOPHEN 325 MG TAB PO PRN (22:45)
[2024-11-09] MEDS ORDERED: HYDROcodone-ACET 5/325MG TAB PO PRN (22:45)
[2024-11-09] MEDS ORDERED: DOXYCYCLINE 100MG/250ML 250 ML IV SCH (22:45)
[2024-11-09] MEDS ORDERED: ALBUTEROL SULF 2.5 MG/0.5ML(0.5%) NEB SOLN NEB PRN (22:45)
[2024-11-09] MEDS ORDERED: ONDANSETRON HCL 4 MG/2 ML VIAL IV PRN (22:45)
[2024-11-09] MEDS ORDERED: DOCUSATE SOD 100 MG CAP PO PRN (22:45)
[2024-11-09] MEDS ORDERED: MORPHINE SULFATE INJ 2 MG/ml SYRG IV PRN (22:45)
[2024-11-09] MEDS ORDERED: NITROGLYCERIN 0.4 MG SL TAB SL PRN (22:45)
--- NOTE | 2024-11-09 22:58 | DVHHP2 ---
History of Present Illness Reason for Visit: Acute respiratory failure with hypoxia History of Present Illness The patient is a 84-year-old female with past medical history of Coronary artery disease, hyperlipidemia, hypotension, and OR who presented to [facility] ED with complaint of shortness of breaths. Patient reports symptoms progressively get worse with chills, fever, body aches, generalized weakness, dizziness, cough with phlegm, loss of appetite, diarrhea, hypoxia, getting worse that prompted this visit. Patient was seen and evaluated in the ED, laboratory data shows WBC 17.1, platelets 290, sodium 136, potassium 3.5, BUN 49, creatinine 1.55, GFR 32, glucose 167, troponin 82, TSH 4.67, BNP 265.42, blood pressure 99/50, heart rate 165 trending down to 112, temperature 98.8 F, O2 saturation 91% on oxygen. Chest x-ray revealing mild interstitial prominence with right mid and lower lung zone opacification which may represent pneumonia. Patient was started on IV antibiotic regimen Rocephin, please see medication orders section in the computer. On my assessment, patient denies chest pain, no headache, no dizziness, no diaphoresis, currently on oxygen, no abdominal pain, no nausea, no vomiting, no chills. Patient was admitted for further evaluation and medical management. Past Medical History CAD, High Lipids, Hypotension, [place] Past Surgical History BTL, PTCA Family History Reviewed, noncontributory to the management of this case. Past Social History Patient lives at home, quit smoking greater than 1 year, denies alcohol or illicit drugs abuse. Review of Systems Constitutional: Yes: Fever, Chills, Weakness; No: Sweats, Malaise, Other Eyes: No: Pain, Vision change, Conjunctivae inflammation, Eyelid inflammation, Other, Redness ENT: No: Ear pain, Ear discharge, Nose pain, Nose discharge, Nose congestion, Mouth pain, Mouth swelling, Throat pain, Throat swelling, Other Respiratory: Cough, Shortness of breath; No: Dry, SOB with excertion, Wheezing, Hemoptysis, Pleuritic Pain, Sputum, Wheezing, Other Cardiovascular: No: Chest Pain, Palpitations, Orthopnea, Paroxysmal Noc. Dyspnea, Edema, Lt Headedness, Other Gastrointestinal: Diarrhea; No: Nausea, Vomiting, Abdominal Pain, Constipation, Melena, Hematochezia, Other Genitourinary: No Dysuria, No Frequency, No Incontinence, No Hematuria, No Retention, No Other Musculoskeletal: No: other, neck pain, shoulder pain, arm pain, back pain, hand pain, leg pain, foot pain Skin: No: Rash, Lesions, Jaundice, Bruising, Other Neurological: No: Weakness, Numbness, Incoordination, Change in speech, Confusion, Seizures, Other Allergies: Coded Allergies: Tetanus Toxoid (Verified Allergy, Unknown, 07/30/19) Tetracycline (Verified Allergy, Unknown, 07/30/19) Exam Vital Signs Vital Signs Date Time Temp Pulse Resp B/P (MAP) Pulse Ox O2 Delivery O2 Flow Rate FiO2 11/09/24 22:44 152 24 128/60 (82) 89 11/09/24 20:30 Nasal Cannula* 5 N/A Oxymizer 11/09/24 20:00 98.8 98.8 General Appearance: Alert, Oriented X3, Cooperative, No acute distress HEENT: Atraumatic, PERRLA, EOMI, Mucous membr. moist/pink Respiratory: Normal air movement, Other (Diminished breath sounds) Cardiovascular: Regular rate, Normal S1, Normal S2, No murmurs Abdominal: Normal bowel sounds, Soft, No tenderness, No hepatospenomegaly, No masses Extremities: No clubbing, No cyanosis, No edema, Normal pulses, No te nderness/swelling Skin: No rashes, No breakdown, No significant lesion Neuro: Normal speech, Normal tone, Sensation intact, Cranial nerves 3-12 NL, Reflexes 2+, Other (Generalized weakness) Psych/Mental Status: Mental status NL, Mood NL Labs/Xrays Labs Test 11/09/24 21:59 11/09/24 20:27 11/09/24 20:05 Range/Units Troponin I High Sensitivity 79 *H </=34 ng/L White Blood Count 17.1 H 4.4-10.8 10^3/uL Red Blood Count 3.98 L 4.0-5.20 10^6/uL Hemoglobin 11.4 L 12.2-16.2 g/dL Hematocrit 34.9 L 36.0-46.0 % Mean Corpuscular Volume 87.8 80.0-100.0 fL Mean Corpuscular Hemoglobin 28.7 28.0-32.0 pg Mean Corpuscular Hemoglobin Concent 32.6 32.0-36.0 g/dL Red Cell Distribution Width 16.1 H 11.8-14.3 % Platelet Count 290 140-450 10^3/uL Mean Platelet Volume 7.5 6.9-10.8 fL Neutrophils (%) (Auto) 37.0-80.0 % Lymphocytes (%) (Auto) 10.0-50.0 % Monocytes (%) (Auto) 0.0-12.0 % Basophils (%) (Auto) 0.0-2.0 % Neutrophils # (Auto) 1.6-8.6 10 ^3/uL Lymphocytes # (Auto) 0.4-5.4 10 ^3/uL Monocytes # (Auto) 0-1.3 10 ^3/uL Differential Total Cells Counted 100.0 100 Neutrophils % (Manual) 77 37.0-80.0 Band Neutrophils % (Manual) 13 Lymphocytes % (Manual) 4 L 10.0-50.0 Monocytes % (Manual) 6 0-12 Eosinophils % (Manual) 0 0-7 Basophils % (Manual) 0 0.0-2.0 Metamyelocytes % (manual) 0 Myelocytes % (Manual) 0 Promyelocytes % (Manual) 0 Blast Cells % (Manual) 0 Reactive Lymphocytes 0 Platelet Estimate Adequate Sodium Level 136 136-145 mmol/L Potassium Level 3.5 3.5-5.1 mmol/L Chloride Level 103 98-107 mmol/L Carbon Dioxide Level 23 20-31 mmol/L Anion Gap 10 5-15 Blood Urea Nitrogen 49 H 9-23 mg/dL Creatinine 1.55 H 0.550-1.02 mg/dL Glomerular Filtration Rate Calc 32 >90 mL/min BUN/Creatinine Ratio 31.6 H 10.0-20.0 Serum Glucose 167 H 74-106 mg/dL Calcium Level 9.1 8.7-10.4 mg/dL Magnesium Level 1.7 1.6-2.6 mg/dL Total Bilirubin 0.8 0.2-1.0 mg/dL Aspartate Amino Transferase (AST) 29 13-40 U/L Alanine Aminotransferase (ALT) 14 7-40 U/L Alkaline Phosphatase 101 46-116 U/L B-Type Natriuretic Peptide 265.42 0-100 pg/mL Total Protein 5.4 L 5.7-8.2 g/dL Albumin 3.5 3.2-4.8 g/dL Thyroid Stimulating Hormone (TSH) 4.67 0.55-4.78 uIU/mL Influenza Type A Antigen Negative Negative Influenza Type B Antigen Negative Negative PATIENT: CLAUS YU ACCT: [id number] UNIT: [id number] : 1940 LOC: ER ROOM / BED: / AGE / SEX: 84 / F ADM STATUS: REG ER SERVICE 31 ORDERING PHYSICIAN: JARROD GUTIERREZ MD PROCEDURE(s): CXRP - CHEST PORTABLE REASON: SOB ORDER NUMBER(s): [id number], ACCESSION NUMBER(s): [id number] CHEST RADIOGRAPH Indication: SOB Technique: Single frontal view of the chest was obtained Comparison: XY CHEST XRAY 1 VIEW on DOS: 07/17/24, XY CHEST PORTABLE on DOS: 04/06/23 FINDINGS: Lines and Tubes: None Lungs: Right mid and lower lung zone opacification. Mild interstitial prominence. Pleura: No effusion. No pneumothorax. Cardiomediastinal contours: Heart size is within normal limits. Moderate atherosclerotic calcification and uncoiling of the aorta. Bones: No acute osseous abnormality. IMPRESSION: Mild interstitial prominence with right mid and lower lung zone opacification which may represent pneumonia. Assessment/Plan Assessment/Plan Respiratory failure with hypoxia Acute renal injury Sepsis, unspecified organism Pneumonia, unspecified organism Intermediate coronary syndrome Plan 1. Admit to telemetry unit 2. Breathing treatment 3. Pain control management 4. IV antibiotic management 5. Management of fluids and electrolytes 6. Consultation for pulmonology/cardiology 7. Diagnostic test chest x-ray 8. DVT prophylaxis-on aspirin 9. Repeat labs CBC, CMP in a.m. 10. Home medication reviewed and reconciled 11. Continue with current medical management 12. Treatment plan discussed with patient and RN. Patient verbalized understanding. Plan discussed with: Patient, Other (RN) My Orders Orders - JOSE RAMON DESOUZA DNP Procedure Category Date Status Time Aspirin Tablet PHA 11/10/24 Transmitted 10:00 Aspirin Tablet PHA 11/09/24 Transmitted 22:45 Furosemide Injection PHA 11/10/24 Transmitted (Lasix Injection) 10:00 Atorvastatin (Lipitor) PHA 11/10/24 Transmitted 22:00 Consistent DIET 11/10/24 Transmitted Carb(Ccho)Diabetes Breakfast Midodrine Tablet PHA 11/10/24 Transmitted (Proamatine Tablet) 06:00 Diltiazem Injection PHA 11/09/24 Transmitted (Cardizem Injection) 22:45 *[facility] CONS 11/09/24 Transmitted -[place] 22:36 *Consult CONS 11/09/24 Transmitted / 22:36 Albuterol Medneb PHA 11/09/24 Transmitted (Ventolin Medneb) 22:45 Ipratropium Medneb PHA 11/09/24 Transmitted (Atrovent Medneb) 22:45 * Cardiology Consult CONS 11/09/24 Transmitted 22:36 Doxycycline PHA 11/09/24 Transmitted 100mg/250ml 22:45 Ceftriaxone Ivpb PHA 11/10/24 Transmitted Rocephin 09:00 Ceftriaxone Ivpb PHA 11/09/24 Transmitted Rocephin 22:45 Glucose Blood PHA 11/10/24 Transmitted (Accu-Chek Comfort 07:00 Bedtime Insulin Scale PHA 11/10/24 Transmitted 22:00 Moderate Insulin Ss PHA 11/10/24 Transmitted 07:00 Dextrose 50% Syringe PHA 11/09/24 Transmitted 22:45 Admit ADMIT 11/09/24 Transmitted 22:36 Allergies ANISH 11/09/24 Transmitted 22:36 Code Status CODE 11/09/24 Transmitted 22:36 Sodium Chloride Lock PHA 11/10/24 Transmitted (Saline Lock Ns) 06:00 Oxygen Per Hour RT 11/09/24 Transmitted 22:36 Hydrocodone-Acet PHA 11/09/24 Transmitted 5/325mg Tab ([place] 22:45 Ondansetron Hcl PHA 11/09/24 Transmitted (Zofran) 22:45 Docusate Sodium PHA 11/09/24 Transmitted Capsule (Colace 22:45 Fall Risk Precautions ANISH 11/09/[address] 22:36 Complete Blood Count LAB 11/10/24 Verified 04:00 Comprehensive LAB 11/10/24 Verified Metabolic Panel 04:00 Condition: Serious ANISH 11/09/24 Transmitted 22:36 Acetaminophen Tablet PHA 11/09/24 Transmitted (Tylenol Tablet) 22:45 Sequential ANISH 11/09/24 Transmitted Compression Device Nitroglycerin PHA 11/09/24 Transmitted Sublingual (Ntrostat 22:45 Morphine Sulfate PHA 11/09/24 Transmitted Injection 22:45 Notify Of Changes ANISH 11/09/24 Transmitted From Base 22:36 Bait Painter For [facility] 11/09/24 Transmitted 24 Hours 22:36 Emergency Dysrhythmia [facility] 11/09/24 Transmitted Protocol 22:36 Rhythm Strips Once [facility] 11/09/24 Transmitted Every Shift 22:36 Oxygen By Nasal RT 11/09/24 Transmitted Cannula 22:36 Levothyroxine Tablet PHA 11/10/24 Transmitted (Synthroid Tablet) 06:00 Problem List: (1) Respiratory failure with hypoxia (2) Pneumonia, unspecified organism (3) Acute renal injury (4) Sepsis, unspecified organism (5) Intermediate coronary syndrome Date of Service: Nov 09, 2024 Billing Provider: JOSE RAMON DESOUZA DNP Common Visit Codes: [id number] INP/OBS CARE (HIGH) JOSE RAMON DESOUZA DNP Nov 09, 2024 22:58
[2024-11-09] MEDS: cefTRIAXone 1GM/50ML D5W 50 ML IV ONE (23:08)
[2024-11-09] MEDS: ASPirin 81 mg TAB PO ONE (23:08)
[2024-11-09] MEDS: dilTIAZem 25 MG/5 ML VIAL IV ONE (23:13)
[2024-11-10] VITALS (17 sets, daily range): BP systolic 114–139; BP diastolic 42–65; PULSE 85–155; RESP 16–31; TEMP 97.8–99; O2SAT 90–96
[2024-11-10] MEDS: FAMOTIDINE (10MG/ML) 2ML VL IV ONE (00:17)
[2024-11-10] MEDS: methylPREDNISolone SOD SUCC 125 MG/2 ML VL IV ONE (00:18)
[2024-11-10] MEDS: DIGOXIN (250MCG/ML) 2 ML AMPULE IV ONE (00:24)
[2024-11-10] MEDS ORDERED: ALBUTEROL SULF 2.5 MG/0.5ML(0.5%) NEB SOLN NEB SCH (00:30)
[2024-11-10] MEDS ORDERED: LEVALBUTEROL HCL 1.25 MG/3 ML NEB NEB SCH (01:00)
[2024-11-10] MEDS: IPRATROPIUM BROM 0.5 MG/2.5ML INH SOL NEB PRN (01:01)
[2024-11-10] MEDS: LEVALBUTEROL HCL 1.25 MG/3 ML NEB NEB SCH (01:01)
[2024-11-10] MEDS: dilTIAZem 25 MG/5 ML VIAL IV ONE (01:28)
--- NOTE | 2024-11-10 02:07 | ECG ---
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
[2024-11-10] MEDS: AMIODARONE BOLUS KIT 100 ML IV ONE (02:32)
[2024-11-10] MEDS: AMIODARONE 450mg/250ml AE 250 ML IV SCH ×2 (02:44→08:15)
[2024-11-10] MEDS: InsuLIN REG 1unit/0.01ml Soln (100units/ml) SC SCH ×2 (06:24→22:22)
[2024-11-10] MEDS: SODIUM CHLOR 0.9% PF (SALINE LOCK) 10ML VIAL/SYR IV SCH (06:27)
[2024-11-10] MEDS: LEVOTHYROXINE SODIUM 50 MCG TAB PO SCH (06:28)
[2024-11-10] MEDS: MIDODRINE HCL 10 MG TAB PO SCH (06:28)
[2024-11-10 06:44] LABS: Hematocrit 35.2 % (36.0-46.0); Hemoglobin 11.5 g/dL (12.2-16.2); Mean Corpuscular Hemoglobin 28.6 pg (28.0-32.0); Mean Corpuscular Hgb Conc. 32.8 g/dL (32.0-36.0); Mean Corpuscular Volume 87.1 fL (80.0-100.0); Platelet Count (auto) 285 10^3/uL (140-450); Red Blood Cells 4.04 10^6/uL (4.0-5.20); Red Cell Distribution Width 15.7 % (11.8-14.3); White Blood Cell 17.8 10^3/uL (4.4-10.8)
[2024-11-10 06:50] LABS: Alanine Aminotransferase 15 U/L (7-40); Albumin 3.9 g/dL (3.2-4.8); Anion Gap 12 (5-15); Aspartate Aminotransferase 25 U/L (13-40); BUN/Creatinine Ratio 29.1 (10.0-20.0); Bilirubin, Total 0.5 mg/dL (0.2-1.0); Calcium 9.7 mg/dL (8.7-10.4); Chloride 101 mmol/L (98-107); Potassium 3.6 mmol/L (3.5-5.1); Total Protein 6.7 g/dL (5.7-8.2)
[2024-11-10 06:56] LABS: Alkaline Phosphatase 120 U/L (46-116); Blood Urea Nitrogen 41 mg/dL (9-23); Carbon Dioxide 20 mmol/L (20-31); Glucose 270 mg/dL (74-106); Sodium 133 mmol/L (136-145)
[2024-11-10] MEDS: ACCU-CHEK COMFORT CURVE STRIP VI SCH (06:56)
[2024-11-10 07:23] LABS: Basophils % (manual) 0 (0.0-2.0); Blast Cells 0; Eosinophils % (manual) 0 (0-7); Metamyelocytes % 0; Myelocytes % 0; Promyelocytes % 0; Reactive Lymphocytes 0
[2024-11-10 08:16] LABS: Lactic Acid w/Reflex 2.1 mmol/L (0.4-2.0)
[2024-11-10 08:51] LABS: Band Neutrophils % (manual) 2; Lymphocytes % (manual) 3 (10.0-50.0); Monocytes % (manual) 2 (0-12)
[2024-11-10 08:52] LABS: Platelet Estimate Adequate
[2024-11-10] MEDS: FAMOTIDINE (10MG/ML) 2ML VL IV SCH (10:11)
[2024-11-10] MEDS: ASPirin 81 mg TAB PO SCH (10:12)
[2024-11-10] MEDS: AZITHROMYCIN 500MG/ 250ML 250 ML IV SCH (10:12)
--- NOTE | 2024-11-10 10:13 | DVHINCON2 ---
Date of service: Nov 10, 2024 Referring Physician LEONELA Morris Reason for Consultation 84-year-old woman history of CAD, hyperlipidemia, myocardial infarction who presented with shortness of breath. She notes fever and chills. She notes generalized body aches and generalized weakness. She notes cough with phlegm production. She notes anorexia. She notes diarrhea. She was found to be hypoxic. She was found to be hypotensive. Chest x-ray was notable for mild interstitial opacities and right mid to lower lung zone opacification. She was initiated on IV antibiotics. Pulmonary consultation is called due to acute hypoxic respiratory failure and pneumonia. Review of systems: 14 point review of systems is negative unless otherwise noted above. Past medical history: CAD, hyperlipidemia, hypertension, myocardial infarction Past surgical history: BTL, PTCA Medications: Reviewed Allergies: Tetanus toxoid, tetracycline Family history: No family history of premature CAD. No family history of lung disease. Social history: Ex-smoker. Quit more than one years ago. No alcohol or illicit drug use. Lives at home. Allergies: Coded Allergies: Tetanus Toxoid (Verified Allergy, Unknown, 07/30/19) Tetracycline (Verified Allergy, Unknown, 07/30/19) Home Meds Active Scripts Nitrofurantoin Monohydrate Mac (Macrobid) 100 Mg Cap, 100 MG PO BID for 5 Days, #10 CAP Prov:ELADIO BARNES MD 04/06/23 Meclizine HCl (Meclizine 25) 25 Mg Tab, 25 MG PO DAILY for 10 Days, #10 TAB Prov:DEEPAK NICHOLS MD 02/05/23 Reported Medications Diphenhydramine Hcl (Diphenhydramine Hcl) 25 Mg Cap, 25 MG PO PRN, MG 07/30/19 Cholecalciferol (Vitamin D3) 1,000 Unit Cap, 1000 UNIT PO DAILY, CAP 07/30/19 Docusate Sodium (Docusate Sodium) 100 Mg Tab, 100 MG PO BIDP PRN for FOR CONSTIPATION for 30 Days, MG 07/30/19 Simethicone (Simethicone Extra Strengt) 125 Mg Cap, 125 MG PO PRN, CAP 07/30/19 Diphenhydramine-Acetaminophen (Tylenol Pm Extra Strength 500-25 mg) 1 Tab Tab, 1 TAB PO HS, TAB 07/30/19 Aspirin (Aspir-Low) 81 Mg Tab, 81 MG PO DAILY for 30 Days, MG 07/30/19 Oxybutynin Chloride (Ditropan Xl) 10 Mg Tab, 10 MG PO HS, TAB 07/30/19 Lipoic Acid (Thioctic Acid) (Alpha Lipoic Acid) 300 Mg Cap, 300 MG PO HS, CAP 07/30/19 Ciclopirox (Ciclopirox Nail Lacquer) 8 % Letitia, 1 APPLIC TOP DAILY, #6.6 ML 1 Refill 07/30/19 Pantoprazole Sodium Sesquihydr (Protonix) 40 Mg Tab, 40 MG PO HS, #30 TAB 07/30/19 Valsartan (Valsartan) 80 Mg Tab, 80 MG PO HS, TAB 07/30/19 Atorvastatin Calcium (Lipitor) 40 Mg Tab, 1 TAB PO QPM, #90 TAB 1 Refill 07/30/19 Escitalopram Oxalate (ESCITALOPRAM OXALATE) 10 Mg Tab, 1 TAB PO DAILY, #30 TAB 3 Refills 07/30/19 Metformin Hydrochloride (Metformin Hcl) 500 Mg Tab, 500 MG PO BID for 30 Days, MG 08/13/17 Levothyroxine Sodium (Levothyroxine Sodium) 25 Mcg Tab, 0.5 TAB PO QAM, MCG 08/13/17 Current Medications Current Medications Medications (Trade) Dose Ordered Sig/Elke Route PRN Reason Start Time Stop Time Status Last Admin Metoprolol Tartrate (Lopressor) 5 mg Q5M IV 11/09/24 18:30 11/09/24 18:51 DC 11/09/24 20:03 Aspirin 81 mg DAILY PO 11/10/24 10:00 Furosemide (Lasix Injection) 20 mg DAILY IV 11/10/24 10:00 Atorvastatin Calcium (Lipitor) 20 mg HS PO 11/10/24 22:00 Midodrine (Proamatine Tablet) 10 mg TID@0600,1200,1800 PO 11/10/24 06:00 11/10/24 06:28 Albuterol (Ventolin Medneb) 2.5 mg Q4HPRN PRN NEB SHORTNESS OF BREATH 11/09/24 22:45 11/10/24 00:07 DC Ipratropium [place] (Atrovent Medneb) 0.5 mg Q4HPRN PRN NEB SHORTNESS OF BREATH 11/09/24 22:45 11/10/24 01:01 Doxycycline Hyclate 250 ml @ 125 mls/hr Q12H IV 11/09/24 22:45 11/10/24 06:51 DC Ceftriaxone Sodium 50 ml @ 100 mls/hr DAILY@2300 IV 11/10/24 23:00 Diagnostic Test (Pha) (Accu-Chek Comfort Curve T) 1 strip ACHS 11/10/24 07:00 11/10/24 06:56 Insulin Human Regular (InsuLIN R) HS SC 11/10/24 22:00 Insulin Human Regular (InsuLIN R) AC SC 11/10/24 07:00 11/10/24 06:24 Dextrose 50 ml UD PRN IV Blood Sugar LESS THAN 60 11/09/24 22:45 Sodium Chloride (Saline Lock Ns) 10 ml Q8HR IV 11/10/24 06:00 11/10/24 06:27 Acetaminophen/ Hydrocodone Bitart ([place] 5/325MG Tab) 1 tab Q4HP PRN PO MODERATE PAIN (4-6 PAIN SCALE) 11/09/24 22:45 Ondansetron HCl (Zofran) 4 mg Q4HP PRN IV NAUSEA / VOMITING 11/09/24 22:45 Docusate Sodium (Colace Capsule) 100 mg BIDPRN PRN PO FOR CONSTIPATION 11/09/24 22:45 Acetaminophen (Tylenol Tablet) 650 mg Q6HP PRN PO PAIN SCALE 1-3 OR TEMP>100.4 11/09/24 22:45 Nitroglycerin (Ntrostat Sublingual) 0.4 mg Q5MINP PRN SL FOR CHEST PAIN 11/09/24 22:45 Morphine Sulfate 2 mg Q30M PRN IV FOR CHEST PAIN 11/09/24 22:45 Levothyroxine Sodium (Synthroid Tablet) 50 mcg QAM@0600 PO 11/10/24 06:00 11/10/24 06:28 Famotidine (Pepcid Injection) 10 mg DAILY IV 11/10/24 10:00 Methylprednisolone Sodium Succinate (Solu Medrol) 40 mg Q8HR IV 11/11/24 06:00 Albuterol (Ventolin Medneb) 2.5 mg Q4H NEB 11/10/24 00:30 11/10/24 00:46 DC Levalbuterol HCl (Xopenex Medneb) 1.25 mg Q4H NEB 11/10/24 01:00 11/10/24 00:46 DC Levalbuterol HCl (Xopenex Medneb) 1.25 mg Q4H NEB 11/10/24 01:00 11/10/24 07:18 Amiodarone HCl 250 ml @ 33.333 mls/ hr Q7H30M IV 11/10/24 02:15 11/10/24 08:14 DC 11/10/24 02:44 Amiodarone HCl 250 ml @ 16.667 mls/ hr Q15H IV 11/10/24 08:15 11/10/24 08:15 Azithromycin 250 ml @ 125 mls/hr DAILY IV 11/10/24 10:00 Vital Signs Vital Signs Date Time Temp Pulse Resp B/P (MAP) Pulse Ox O2 Delivery O2 Flow Rate FiO2 11/10/24 08:05 86 11/10/24 08:00 98.3 20 134/59 (84) 94 98.3 11/10/24 07:36 Simple Mask* 9 90 Physical Exam Gen.: Patient lying in bed in no apparent distress. On supplemental oxygen. Head: Normocephalic, atraumatic Eyes: EOMI/PERRLA. Ears: Normal hearing. Normal anatomy. Neck/trachea: Trachea midline, supple. Nose: Normal external anatomy. Mouth: Moist mucous membranes. Chest: Decreased air entry bilaterally. No wheezing . Right lower lung field rhonchi. Cardio vascular: Positive S1, positive S2. Regular rate and rhythm. Abdomen: Positive bowel sounds in all 4 quadrants. Soft, non-tender, non- distended. : Deferred. Rectal: Deferred Skin: Warm, dry. Extremities: 2+ radial pulses bilaterally. No lower extremity edema. Neuro: Awake, alert, oriented x3. No gross motor or sensory deficits. Cranial nerves II through XII intact. Gait not assessed. Labs/Diagnostic Data Labs Test 11/10/24 09:46 11/10/24 06:13 11/10/24 05:59 11/09/24 23:17 Range/Units POC Glucose 282 H 70-106 mg/dl White Blood Count 17.8 H 4.4-10.8 10^3/uL Red Blood Count 4.04 4.0-5.20 10^6/uL Hemoglobin 11.5 L 12.2-16.2 g/dL Hematocrit 35.2 L 36.0-46.0 % Mean Corpuscular Volume 87.1 80.0-100.0 fL Mean Corpuscular Hemoglobin 28.6 28.0-32.0 pg Mean Corpuscular Hemoglobin Concent 32.8 32.0-36.0 g/dL Red Cell Distribution Width 15.7 H 11.8-14.3 % Platelet Count 285 140-450 10^3/uL Mean Platelet Volume 7.6 6.9-10.8 fL Neutrophils (%) (Auto) 37.0-80.0 % Lymphocytes (%) (Auto) 10.0-50.0 % Monocytes (%) (Auto) 0.0-12.0 % Basophils (%) (Auto) 0.0-2.0 % Neutrophils # (Auto) 1.6-8.6 10 ^3/uL Lymphocytes # (Auto) 0.4-5.4 10 ^3/uL Monocytes # (Auto) 0-1.3 10 ^3/uL Differential Total Cells Counted 100.0 100 Neutrophils % (Manual) 93 H 37.0-80.0 Band Neutrophils % (Manual) 2 Lymphocytes % (Manual) 3 L 10.0-50.0 Monocytes % (Manual) 2 0-12 Eosinophils % (Manual) 0 0-7 Basophils % (Manual) 0 0.0-2.0 Metamyelocytes % (manual) 0 Myelocytes % (Manual) 0 Promyelocytes % (Manual) 0 Blast Cells % (Manual) 0 Reactive Lymphocytes 0 Platelet Estimate Adequate Sodium Level 133 L 136-145 mmol/L Potassium Level 3.6 3.5-5.1 mmol/L Chloride Level 101 98-107 mmol/L Carbon Dioxide Level 20 20-31 mmol/L Anion Gap 12 5-15 Blood Urea Nitrogen 41 H 9-23 mg/dL Creatinine 1.41 H 0.550-1.02 mg/dL Glomerular Filtration Rate Calc 36 >90 mL/min BUN/Creatinine Ratio 29.1 H 10.0-20.0 Serum Glucose 270 H 74-106 mg/dL Calcium Level 9.7 8.7-10.4 mg/dL Total Bilirubin 0.5 0.2-1.0 mg/dL Aspartate Amino Transferase (AST) 25 13-40 U/L Alanine Aminotransferase (ALT) 15 7-40 U/L Alkaline Phosphatase 120 H 46-116 U/L Total Protein 6.7 5.7-8.2 g/dL Albumin 3.9 3.2-4.8 g/dL Troponin I High Sensitivity 88 *H </=34 ng/L Test 11/09/24 20:27 11/09/24 20:05 Range/Units Magnesium Level 1.7 1.6-2.6 mg/dL B-Type Natriuretic Peptide 265.42 0-100 pg/mL Thyroid Stimulating Hormone (TSH) 4.67 0.55-4.78 uIU/mL Influenza Type A Antigen Negative Negative Influenza Type B Antigen Negative Negative Assessment Impression: Acute hypoxic respiratory failure secondary to pneumonia Pneumonia likely Gram-negative Sepsis Acute kidney injury Ex-smoker Lactic acidosis Plan: Supplemental oxygen On 9 liters/minute via simple mask Keep O2 saturation above 92%. Chest x-ray imaging report reviewed. Mild interstitial opacities. Right middle and lower lobe opacities. Atelectasis. Continue antibiotics Monitor WBC count Follow up cultures Monitor renal function due to EM Monitor electrolytes Supplement as necessary. Monitor ins and outs. Monitor sodium due to mild hyponatremia. Accu-Cheks, insulin sliding scale Elevated troponin , possibly demand ischemia Follow up echocardiogram Follow up Cardiology recommendations. DVT prophylaxis Prognosis: Poor given multiple comorbidities. Rest of plan per hospitalist and other consultants. Thank you LEONELA Morris. for allowing me to participate in this patient's care. Further recommendations will depend on patient's clinical course. Please do not hesitate to contact me if you have any questions or concerns. This medical document was created using an electronic medical record system with [employer] dictation system. Although this document has been carefully reviewed, there may still be some phonetic and typographical errors. These areas are purely typographical due to imperfections of the software programs, and do not reflect any compromise in the patient's medical care. Plan discussed with: Patient, Other (RN, HISTORY TEACHER) TANIYA RAYMUNDO MD Nov 10, 2024 10:13
[2024-11-10] MEDS: FUROSEMIDE 20 MG/2 ML VIAL IV SCH (10:14)
[2024-11-10] MEDS ORDERED: VANCOMYCIN PER PHARMACY 0 MG IV SCH (10:45)
--- NOTE | 2024-11-10 11:08 | DVHINCON2 ---
Date Seen: Nov 10, 2024 Referring Physician LEONELA Morris Reason for Consultation "tachycardia" History of Present Illness This is an 84-year-old female patient who presents to the emergency room with chief complaint of fever, chills, shortness of breath, and dry cough. The patient reports symptoms began on (11/06/24). She reports that she became concerned when symptoms did not subside after a few days. The patient reports that her niece called emergency medical services and the patient was brought to the emergency room for further evaluation. Upon emergency room arrival, a twelve electrocardiogram revealed atrial fibrillation with rapid ventricular response. She denies any previous history of atrial fibrillation. While in the emergency room and prescribed by emergency room providers, the patient was given diltiazem 5 mg IV, followed by digoxin 105 mcg IV once, and subsequently given an amiodarone bolus followed by the drip protocol. At the time of assessment, the patient remains on an amiodarone drip. Patient in atrial fibrillation at time of assessment, but noted that the patient is going in and out of sinus rhythm on surveillance monitor. Significant past medical history includes coronary artery disease status post PTCA x1 JOSE (on aspirin), history myocardial infarction, hypertension, hyperlipidemia, peripheral vascular disease, type 2 diabetes mellitus, thyroid disease, and history of breast cancer in 2000 status post right mastectomy. The patient reports that she sees division manager in the outpatient setting. Past Medical History Past medical history reviewed. No other significant than mentioned above. Past Surgical History Right mastectomy Family History Family history reviewed. Social History Patient has a 39 pack-year history, quit smoking approximately 34 years ago Patient denies any alcohol use Patient denies any illicit drug use Allergies: Coded Allergies: Tetanus Toxoid (Verified Allergy, Unknown, 07/30/19) Tetracycline (Verified Allergy, Unknown, 07/30/19) Home Meds Active Scripts Nitrofurantoin Monohydrate Mac (Macrobid) 100 Mg Cap, 100 MG PO BID for 5 Days, #10 CAP Prov:ELADIO BARNES MD 04/06/23 Meclizine HCl (Meclizine 25) 25 Mg Tab, 25 MG PO DAILY for 10 Days, #10 TAB Prov:DEEPAK NICHOLS MD 02/05/23 Reported Medications Diphenhydramine Hcl (Diphenhydramine Hcl) 25 Mg Cap, 25 MG PO PRN, MG 07/30/19 Cholecalciferol (Vitamin D3) 1,000 Unit Cap, 1000 UNIT PO DAILY, CAP 07/30/19 Docusate Sodium (Docusate Sodium) 100 Mg Tab, 100 MG PO BIDP PRN for FOR CONSTIPATION for 30 Days, MG 07/30/19 Simethicone (Simethicone Extra Strengt) 125 Mg Cap, 125 MG PO PRN, CAP 07/30/19 Diphenhydramine-Acetaminophen (Tylenol Pm Extra Strength 500-25 mg) 1 Tab Tab, 1 TAB PO HS, TAB 07/30/19 Aspirin (Aspir-Low) 81 Mg Tab, 81 MG PO DAILY for 30 Days, MG 07/30/19 Oxybutynin Chloride (Ditropan Xl) 10 Mg Tab, 10 MG PO HS, TAB 07/30/19 Lipoic Acid (Thioctic Acid) (Alpha Lipoic Acid) 300 Mg Cap, 300 MG PO HS, CAP 07/30/19 Ciclopirox (Ciclopirox Nail Lacquer) 8 % Letitia, 1 APPLIC TOP DAILY, #6.6 ML 1 Refill 07/30/19 Pantoprazole Sodium Sesquihydr (Protonix) 40 Mg Tab, 40 MG PO HS, #30 TAB 07/30/19 Valsartan (Valsartan) 80 Mg Tab, 80 MG PO HS, TAB 07/30/19 Atorvastatin Calcium (Lipitor) 40 Mg Tab, 1 TAB PO QPM, #90 TAB 1 Refill 07/30/19 Escitalopram Oxalate (ESCITALOPRAM OXALATE) 10 Mg Tab, 1 TAB PO DAILY, #30 TAB 3 Refills 07/30/19 Metformin Hydrochloride (Metformin Hcl) 500 Mg Tab, 500 MG PO BID for 30 Days, MG 08/13/17 Levothyroxine Sodium (Levothyroxine Sodium) 25 Mcg Tab, 0.5 TAB PO QAM, MCG 08/13/17 Home Meds Home medications reviewed. Current Medications Current Medications Medications (Trade) Dose Ordered Sig/Elke Route PRN Reason Start Time Stop Time Status Last Admin Metoprolol Tartrate (Lopressor) 5 mg Q5M IV 11/09/24 18:30 11/09/24 18:51 DC 11/09/24 20:03 Aspirin 81 mg DAILY PO 11/10/24 10:00 11/10/24 10:12 Furosemide (Lasix Injection) 20 mg DAILY IV 11/10/24 10:00 11/10/24 10:14 Atorvastatin Calcium (Lipitor) 20 mg HS PO 11/10/24 22:00 Midodrine (Proamatine Tablet) 10 mg TID@0600,1200,1800 PO 11/10/24 06:00 11/10/24 06:28 Albuterol (Ventolin Medneb) 2.5 mg Q4HPRN PRN NEB SHORTNESS OF BREATH 11/09/24 22:45 11/10/24 00:07 DC Ipratropium [place] (Atrovent Medneb) 0.5 mg Q4HPRN PRN NEB SHORTNESS OF BREATH 11/09/24 22:45 11/10/24 01:01 Doxycycline Hyclate 250 ml @ 125 mls/hr Q12H IV 11/09/24 22:45 11/10/24 06:51 DC Ceftriaxone Sodium 50 ml @ 100 mls/hr DAILY@2300 IV 11/10/24 23:00 11/10/24 10:34 DC Diagnostic Test (Pha) (Accu-Chek Comfort Curve T) 1 strip ACHS 11/10/24 07:00 11/10/24 06:56 Insulin Human Regular (InsuLIN R) HS SC 11/10/24 22:00 Insulin Human Regular (InsuLIN R) AC SC 11/10/24 07:00 11/10/24 06:24 Dextrose 50 ml UD PRN IV Blood Sugar LESS THAN 60 11/09/24 22:45 Sodium Chloride (Saline Lock Ns) 10 ml Q8HR IV 11/10/24 06:00 11/10/24 06:27 Acetaminophen/ Hydrocodone Bitart ([place] 5/325MG Tab) 1 tab Q4HP PRN PO MODERATE PAIN (4-6 PAIN SCALE) 11/09/24 22:45 Ondansetron HCl (Zofran) 4 mg Q4HP PRN IV NAUSEA / VOMITING 11/09/24 22:45 Docusate Sodium (Colace Capsule) 100 mg BIDPRN PRN PO FOR CONSTIPATION 11/09/24 22:45 Acetaminophen (Tylenol Tablet) 650 mg Q6HP PRN PO PAIN SCALE 1-3 OR TEMP>100.4 11/09/24 22:45 Nitroglycerin (Ntrostat Sublingual) 0.4 mg Q5MINP PRN SL FOR CHEST PAIN 11/09/24 22:45 Morphine Sulfate 2 mg Q30M PRN IV FOR CHEST PAIN 11/09/24 22:45 Levothyroxine Sodium (Synthroid Tablet) 50 mcg QAM@0600 PO 11/10/24 06:00 11/10/24 06:28 Famotidine (Pepcid Injection) 10 mg DAILY IV 11/10/24 10:00 11/10/24 10:11 Methylprednisolone Sodium Succinate (Solu Medrol) 40 mg Q8HR IV 11/11/24 06:00 Albuterol (Ventolin Medneb) 2.5 mg Q4H NEB 11/10/24 00:30 11/10/24 00:46 DC Levalbuterol HCl (Xopenex Medneb) 1.25 mg Q4H NEB 11/10/24 01:00 11/10/24 00:46 DC Levalbuterol HCl (Xopenex Medneb) 1.25 mg Q4H NEB 11/10/24 01:00 11/10/24 07:18 Amiodarone HCl 250 ml @ 33.333 mls/ hr Q7H30M IV 11/10/24 02:15 11/10/24 08:14 DC 11/10/24 02:44 Amiodarone HCl 250 ml @ 16.667 mls/ hr Q15H IV 11/10/24 08:15 11/10/24 08:15 Azithromycin 250 ml @ 125 mls/hr DAILY IV 11/10/24 10:00 11/10/24 10:12 Piperacillin Sod/ Tazobactam Sod 100 ml @ 25 mls/hr Q6HR IV 11/10/24 12:00 UNV Vancomycin HCl 0 ml @ 0 mls/hr UD IV 11/10/24 10:45 UNV Review of Systems Constitutional: Fever, chills, Generalized weakness Ears, Nose, & Throat: No symptom reported Eyes: No symptom reported Neurological: No symptoms reported Pulmonary/Respiratory: Dry cough Cardiovascular: No symptom reported Gastrointestinal: No symptom reported Genitourinary: No symptom reported Musculoskeletal: No symptom reported Skin: No symptom reported Psychiatric: No symptom reported Endocrine: No symptom reported Hematologic/Lymphatic: No symptom reported Vital Signs Vital Signs Date Time Temp Pulse Resp B/P (MAP) Pulse Ox O2 Delivery O2 Flow Rate FiO2 11/10/24 10:14 133/52 11/10/24 10:00 82 20 95 11/10/24 08:00 98.3 98.3 11/10/24 07:36 Simple Mask* 9 90 Physical Exam General Appearance: Cooperative. Well-developed. Well-nourished. No acute distress. Pulmonary/Respiratory: Coarse bilateral upper lobes Cardiovascular/Chest: Irregular rate and rhythm. Peripheral Pulses: 2+ Radial (R). 2+ Radial (L). Abdominal Exam: Normal bowel sounds. Ankle Exam: Negative ankle edema Lower extremities: Negative lower extremity edema Neuro/Mental Status: A/OX4, coherent. Thoughts/Psych: Normal thought pattern. Appropriate mood and affect. Good judgment and insight. Appearance: No acute distress. Skin Exam: Normal inspection. Normal color. Warm and dry. Labs/Diagnostic Data Labs Test 11/10/24 09:46 11/10/24 06:13 11/10/24 05:59 11/09/24 23:17 Range/Units Lactic Acid Level 3.2 *H 0.4-2.0 mmol/L POC Glucose 282 H 70-106 mg/dl White Blood Count 17.8 H 4.4-10.8 10^3/uL Red Blood Count 4.04 4.0-5.20 10^6/uL Hemoglobin 11.5 L 12.2-16.2 g/dL Hematocrit 35.2 L 36.0-46.0 % Mean Corpuscular Volume 87.1 80.0-100.0 fL Mean Corpuscular Hemoglobin 28.6 28.0-32.0 pg Mean Corpuscular Hemoglobin Concent 32.8 32.0-36.0 g/dL Red Cell Distribution Width 15.7 H 11.8-14.3 % Platelet Count 285 140-450 10^3/uL Mean Platelet Volume 7.6 6.9-10.8 fL Neutrophils (%) (Auto) 37.0-80.0 % Lymphocytes (%) (Auto) 10.0-50.0 % Monocytes (%) (Auto) 0.0-12.0 % Basophils (%) (Auto) 0.0-2.0 % Neutrophils # (Auto) 1.6-8.6 10 ^3/uL Lymphocytes # (Auto) 0.4-5.4 10 ^3/uL Monocytes # (Auto) 0-1.3 10 ^3/uL Differential Total Cells Counted 100.0 100 Neutrophils % (Manual) 93 H 37.0-80.0 Band Neutrophils % (Manual) 2 Lymphocytes % (Manual) 3 L 10.0-50.0 Monocytes % (Manual) 2 0-12 Eosinophils % (Manual) 0 0-7 Basophils % (Manual) 0 0.0-2.0 Metamyelocytes % (manual) 0 Myelocytes % (Manual) 0 Promyelocytes % (Manual) 0 Blast Cells % (Manual) 0 Reactive Lymphocytes 0 Platelet Estimate Adequate Sodium Level 133 L 136-145 mmol/L Potassium Level 3.6 3.5-5.1 mmol/L Chloride Level 101 98-107 mmol/L Carbon Dioxide Level 20 20-31 mmol/L Anion Gap 12 5-15 Blood Urea Nitrogen 41 H 9-23 mg/dL Creatinine 1.41 H 0.550-1.02 mg/dL Glomerular Filtration Rate Calc 36 >90 mL/min BUN/Creatinine Ratio 29.1 H 10.0-20.0 Serum Glucose 270 H 74-106 mg/dL Calcium Level 9.7 8.7-10.4 mg/dL Total Bilirubin 0.5 0.2-1.0 mg/dL Aspartate Amino Transferase (AST) 25 13-40 U/L Alanine Aminotransferase (ALT) 15 7-40 U/L Alkaline Phosphatase 120 H 46-116 U/L Total Protein 6.7 5.7-8.2 g/dL Albumin 3.9 3.2-4.8 g/dL Troponin I High Sensitivity 88 *H </=34 ng/L Test 11/09/24 20:27 11/09/24 20:05 Range/Units Magnesium Level 1.7 1.6-2.6 mg/dL B-Type Natriuretic Peptide 265.42 0-100 pg/mL Thyroid Stimulating Hormone (TSH) 4.67 0.55-4.78 uIU/mL Influenza Type A Antigen Negative Negative Influenza Type B Antigen Negative Negative Assessment Atrial fibrillation with rapid ventricular response, new onset Sepsis Pneumonia NSTEMI type II secondary to above Coronary artery disease status post PTCA x1 JOSE (on ASA) Rule out structural heart disease History myocardial infarction Hypertension Hyperlipidemia Peripheral vascular disease Acute kidney injury Type 2 diabetes mellitus Thyroid disease History of tobacco use Plan/Recommendation We will continue with the following plan/recommendations (Dr. Martinez): * Echocardiogram to evaluate cardiac function * [id number] VASc score: 6 points HAS-BLED score: 2 points * Initiate therapeutic Lovenox, transition to NOAC when appropriate * Beta-мария for rate control * Antiarrhythmic agent, amiodarone * Continue single antiplatelet therapy and lipid-lowering agent * Antibiotics per primary care team * Monitor and replete electrolytes as needed, keep potassium above 4 and magnesium above 2 Thank you for allowing us to care for this patient. Please call with any questions or concerns. Critical care time spent: 38 minutes This medical document was created using an electronic medical record system with voice recognition software and computerized dictation system. Although this document has been carefully reviewed, there might still be some phonetic and typographical errors. Occasional wrong-word or ``sound-alike substitutions may have occurred due to the inherent limitations of voice recognition software. These areas are purely typographical due to imperfections of the software programs and do not reflect any compromise in the patient's medical care. Please read the chart carefully and recognize, using context, where these substitutions have occurred. Plan discussed with: Patient Date of Service: Nov 10, 2024 Billing Provider: KATHY RODRIGUEZ Cardiology Common Codes: 13714-MPNZKVA INP/OBS CARE (High) Cardiology Consultation Codes: 37006-[id number] CONSULT <45MIN KATHY RODRIGUEZ Nov 10, 2024 11:08
--- NOTE | 2024-11-10 11:28 | DVHPNRES ---
Progress Note Date Seen: Nov 10, 2024 Resident Creating Document: MORENO NEELY RESIDENT Medical Necessity Reason Pt with a Central, PICC or Fol: No Subjective Review of Systems pt seen and examined at bedside, mentions SOB associated with fever , cough, chills, was on 9L through simple mask currently on 5l though nc. Objective vital signs Vital Sign Date Time Temp Pulse Resp B/P (MAP) Pulse Ox O2 Delivery O2 Flow Rate FiO2 11/10/24 11:01 91 26 94 11/10/24 10:55 Simple Mask* 10 99 11/10/24 10:14 133/52 11/10/24 08:00 98.3 98.3 Total Intake and Output 11/09/24 11/09/24 11/10/24 15:00 23:00 07:00 Intake Total 100 ml Balance 100 ml medications Current Medications Medications Dose Ordered Sig/Elke Route Start Time Stop Time Status Last Admin Dose Admin Aspirin 81 mg DAILY PO 11/10/24 10:00 11/10/24 10:12 81 MG Furosemide 20 mg DAILY IV 11/10/24 10:00 11/10/24 10:14 20 MG Atorvastatin Calcium 20 mg HS PO 11/10/24 22:00 Ipratropium [place] 0.5 mg Q4HPRN PRN NEB 11/09/24 22:45 11/10/24 01:01 0.5 MG Diagnostic Test (Pha) 1 strip ACHS 11/10/24 07:00 11/10/24 06:56 1 STRIP Insulin Human Regular HS SC 11/10/24 22:00 Insulin Human Regular AC SC 11/10/24 07:00 11/10/24 06:24 9 UNITS Dextrose 50 ml UD PRN IV 11/09/24 22:45 Sodium Chloride 10 ml Q8HR IV 11/10/24 06:00 11/10/24 06:27 10 ML Acetaminophen/ Hydrocodone Bitart 1 tab Q4HP PRN PO 11/09/24 22:45 Ondansetron HCl 4 mg Q4HP PRN IV 11/09/24 22:45 Docusate Sodium 100 mg BIDPRN PRN PO 11/09/24 22:45 Acetaminophen 650 mg Q6HP PRN PO 11/09/24 22:45 Nitroglycerin 0.4 mg Q5MINP PRN SL 11/09/24 22:45 Morphine Sulfate 2 mg Q30M PRN IV 11/09/24 22:45 Levothyroxine Sodium 50 mcg QAM@0600 PO 11/10/24 06:00 11/10/24 06:28 50 MCG Famotidine 10 mg DAILY IV 11/10/24 10:00 11/10/24 10:11 10 MG Methylprednisolone Sodium Succinate 40 mg Q8HR IV 11/11/24 06:00 Levalbuterol HCl 1.25 mg Q4H NEB 11/10/24 01:00 11/10/24 10:55 1.25 MG Amiodarone HCl 250 ml @ 16.667 mls/ hr Q15H IV 11/10/24 08:15 11/10/24 08:15 16.667 MLS/HR Azithromycin 250 ml @ 125 mls/hr DAILY IV 11/10/24 10:00 11/10/24 10:12 125 MLS/HR Piperacillin Sod/ Tazobactam Sod 100 ml @ 25 mls/hr Q6HR IV 11/10/24 12:00 UNV Vancomycin HCl 0 ml @ 0 mls/hr UD IV 11/10/24 10:45 Metoprolol Succinate 25 mg DAILY PO 11/11/24 10:00 Enoxaparin Sodium 60 mg DAILY SC 11/11/24 10:00 Examination Examination General Appearance: On 5 L through nasal cannula HEENT: EOMI Respiratory: Clear to auscultation, Normal air movement, bilateral crackles R>>L Cardiovascular: Regular rate, Normal S1, Normal S2 Abdominal: Normal bowel sounds Extremities: No cyanosis, No edema, Normal pulses, No tenderness/swelling Skin: No rashes, No breakdown Neuro: Normal speech and tone laboratory and microbiology Laboratory Tests 11/10/24 05:59 Test 11/10/24 05:59 Range/Units Serum Glucose 270 H 74-106 mg/dL Labs and/or images reviewed: Labs reviewed by me, Image(s) reviewed by me Problem List/Assessment/Plan Problem List/Assessment/Plan Assessment/plan # acute hypoxic respiratory failure due to community-acquired pneumonia -currently on 5 L of oxygen through nasal cannula Nebulization with ipratropium and albuterol # possible sepsis due to community-acquired pneumonia -IV fluids -IV antibiotics -MRSA screen -pancultures # community-acquired pneumonia, Gram-positive/Gram-negative -IV antibiotics Pancultures #? New onset AFib -currently on therapeutic Lovenox and metoprolol -amiodarone drip # history of coronary artery disease -no active chest complaints #hyperlipidemia -will resume home Meds DVT prophylaxis -pt is on therapeutic Lovenox Code status discussed with the patient for >21min, full code critical care time 45 mins Plan discussed with: Patient, Other My Orders My Orders Orders - MORENO NEELY Procedure Category Date Status Time Piperacillin-Tazob PHA 11/10/24 In Process 3.375gm (Zosyn 3.375g 11:15 Piperacillin-Tazo PHA 11/10/24 Logged 4.5gm (Zosyn 4.5gm/100 12:00 Vancomycin Per PHA 11/10/24 In Process Pharmacy 10:45 Respiratory Culture GASTON 11/10/24 Logged W/ Gs 11:09 Mrsa Screen GASTON 11/10/24 Uncollected 11:09 Date of Service: Nov 10, 2024 Billing Provider: KEYLA MERRITT MD Common Visit Codes: [id number] CARE 30-74 MIN MORENO NEELY Nov 10, 2024 11:28 KEYLA MERRITT MD Nov 10, 2024 22:44
[2024-11-10] MEDS: POTASSIUM EFFERVESENT TAB 25 MEQ PO ONE (11:40)
[2024-11-10] MEDS: MAGNESIUM OXIDE 400 MG TAB PO ONE (11:40)
[2024-11-10 11:54] LABS: Magnesium 1.8 mg/dL (1.6-2.6)
[2024-11-10] MEDS: VANCOMYCIN 750MG VIAL 750 MG in D5W 5% 100 ML IV ONE (12:46)
[2024-11-10] MEDS: PIPERACILLIN-TAZOB 3.375GM 100 ML IV ONE (12:46)
--- NOTE | 2024-11-10 14:25 | DVHSR ---
APPROVED REPORT EXAM: Two-dimensional and M-mode echocardiogram with Doppler and color Doppler. Blood Pressure: 133/52 mmHg INDICATION Evaluate Cardiac Function RISK FACTORS Height: 5' 6", Weight: 141 DIMENSIONS LVDd3.6 (3.8-5.7cm)LA (2D)3.2 (1.9-4.0cm)Aortic Root2.9 (2.0-3.7cm) LVDs2.5 (2.5-4.0cm)LA (MM) (1.9-4.0cm)Aortic Cusp Exc1.6 (1.5-2.0cm) EF (%) 58.0 (55-70%)Rt. Atrium3.6 (1.9-4.0cm)Asc. Aorta cm IVSd1.0 (0.7-1.1cm)RV (D) (1.8-2.4cm) PWd1.0 (0.7-1.1cm) Mitral Valve MitralMitral Stenosis E wave1.00m/sMV Mean GR.mmHg A wave1.10m/sMV Peak GR.mmHg E/A ratio0.92D MVAcm2 Aortic Valve Aortic ValveAortic Stenosis V11.10m/Jorge Mean GR.4mmHg V21.20m/Jorge Peak GR.7mmHg LVOT Diameter2.3 (1.8-2.4cm)Doppler AVA3.81cm2 AI P 1/2 Yixi694.48ms Pulmonic Valve V20.80m/s Tricuspid Valve TR Velocity2.90m/s [id number] Conclusion Technically good study. Sinus rhythm. Difficult acoustic windows. Concentric LVH with left atrial enlargement. Mild aortic root enlargement. Mild mitral annular calcification and thickening the mitral leaflets. Mild aortic sclerosis. Tricus pid and pulmonic or structurally normal. EF of 55% with normal RV function. There is mild mitral insufficiency. Mild aortic insufficiency with mild tricuspid regurgitation. Mi ld pulmonic insufficiency. No pericardial effusion masses or vegetations discernible.
[2024-11-10 14:52] LABS: Chloride 100 mmol/L (98-107); Potassium 4.2 mmol/L (3.5-5.1)
[2024-11-10 14:53] LABS: Anion Gap 12 (5-15)
[2024-11-10 14:54] LABS: Calcium 9.3 mg/dL (8.7-10.4); Carbon Dioxide 19 mmol/L (20-31); Sodium 131 mmol/L (136-145)
[2024-11-10 14:58] LABS: BUN/Creatinine Ratio 24.2 (10.0-20.0); Blood Urea Nitrogen 37 mg/dL (9-23)
[2024-11-10 14:59] LABS: Glucose 435 mg/dL (74-106)
[2024-11-10 15:01] LABS: Lactic Acid w/Reflex 4.1 mmol/L (0.4-2.0)
--- NOTE | 2024-11-10 16:32 | DVHINCON2 ---
Date of service: Nov 10, 2024 Referring Physician Rogelio Morris NP Reason for Consultation EM History of Present Illness Mrs. Lawson is a 84-year-old female with presentation the hospital with dyspnea and hypoxia. Her clinical course has been notable for diagnosis of community acquired bacterial pneumonia. She was seen in the emergency department cooperative with history of physical. Current consultation requested due to elevated serum creatinine upon admission. She denies recent gross hematuria, skin rash, hemoptysis.+ Cough, + shortness of breath. Past Medical History Coronary artery disease Dyslipidemia Allergies: Coded Allergies: Tetanus Toxoid (Verified Allergy, Unknown, 07/30/19) Tetracycline (Verified Allergy, Unknown, 07/30/19) Home Meds Active Scripts Nitrofurantoin Monohydrate Mac (Macrobid) 100 Mg Cap, 100 MG PO BID for 5 Days, #10 CAP Prov:ELADIO BARNES MD 04/06/23 Meclizine HCl (Meclizine 25) 25 Mg Tab, 25 MG PO DAILY for 10 Days, #10 TAB Prov:DEEPAK NICHOLS MD 02/05/23 Reported Medications Diphenhydramine Hcl (Diphenhydramine Hcl) 25 Mg Cap, 25 MG PO PRN, MG 07/30/19 Cholecalciferol (Vitamin D3) 1,000 Unit Cap, 1000 UNIT PO DAILY, CAP 07/30/19 Docusate Sodium (Docusate Sodium) 100 Mg Tab, 100 MG PO BIDP PRN for FOR CONSTIPATION for 30 Days, MG 07/30/19 Simethicone (Simethicone Extra Strengt) 125 Mg Cap, 125 MG PO PRN, CAP 07/30/19 Diphenhydramine-Acetaminophen (Tylenol Pm Extra Strength 500-25 mg) 1 Tab Tab, 1 TAB PO HS, TAB 07/30/19 Aspirin (Aspir-Low) 81 Mg Tab, 81 MG PO DAILY for 30 Days, MG 07/30/19 Oxybutynin Chloride (Ditropan Xl) 10 Mg Tab, 10 MG PO HS, TAB 07/30/19 Lipoic Acid (Thioctic Acid) (Alpha Lipoic Acid) 300 Mg Cap, 300 MG PO HS, CAP 07/30/19 Ciclopirox (Ciclopirox Nail Lacquer) 8 % Letitia, 1 APPLIC TOP DAILY, #6.6 ML 1 Refill 07/30/19 Pantoprazole Sodium Sesquihydr (Protonix) 40 Mg Tab, 40 MG PO HS, #30 TAB 07/30/19 Valsartan (Valsartan) 80 Mg Tab, 80 MG PO HS, TAB 07/30/19 Atorvastatin Calcium (Lipitor) 40 Mg Tab, 1 TAB PO QPM, #90 TAB 1 Refill 07/30/19 Escitalopram Oxalate (ESCITALOPRAM OXALATE) 10 Mg Tab, 1 TAB PO DAILY, #30 TAB 3 Refills 07/30/19 Metformin Hydrochloride (Metformin Hcl) 500 Mg Tab, 500 MG PO BID for 30 Days, MG 08/13/17 Levothyroxine Sodium (Levothyroxine Sodium) 25 Mcg Tab, 0.5 TAB PO QAM, MCG 08/13/17 Current Medications Current Medications Medications (Trade) Dose Ordered Sig/Elke Route PRN Reason Start Time Stop Time Status Last Admin Metoprolol Tartrate (Lopressor) 5 mg Q5M IV 11/09/24 18:30 11/09/24 18:51 DC 11/09/24 20:03 Aspirin 81 mg DAILY PO 11/10/24 10:00 11/10/24 10:12 Furosemide (Lasix Injection) 20 mg DAILY IV 11/10/24 10:00 11/10/24 10:14 Atorvastatin Calcium (Lipitor) 20 mg HS PO 11/10/24 22:00 Midodrine (Proamatine Tablet) 10 mg TID@0600,1200,1800 PO 11/10/24 06:00 11/10/24 11:00 DC 11/10/24 06:28 Albuterol (Ventolin Medneb) 2.5 mg Q4HPRN PRN NEB SHORTNESS OF BREATH 11/09/24 22:45 11/10/24 00:07 DC Ipratropium [place] (Atrovent Medneb) 0.5 mg Q4HPRN PRN NEB SHORTNESS OF BREATH 11/09/24 22:45 11/10/24 01:01 Doxycycline Hyclate 250 ml @ 125 mls/hr Q12H IV 11/09/24 22:45 11/10/24 06:51 DC Ceftriaxone Sodium 50 ml @ 100 mls/hr DAILY@2300 IV 11/10/24 23:00 11/10/24 10:34 DC Diagnostic Test (Pha) (Accu-Chek Comfort Curve T) 1 strip ACHS 11/10/24 07:00 11/10/24 11:33 Insulin Human Regular (InsuLIN R) HS SC 11/10/24 22:00 Insulin Human Regular (InsuLIN R) AC SC 11/10/24 07:00 11/10/24 11:34 Dextrose 50 ml UD PRN IV Blood Sugar LESS THAN 60 11/09/24 22:45 Sodium Chloride (Saline Lock Ns) 10 ml Q8HR IV 11/10/24 06:00 11/10/24 13:17 Acetaminophen/ Hydrocodone Bitart (Eldred 5/325MG Tab) 1 tab Q4HP PRN PO MODERATE PAIN (4-6 PAIN SCALE) 11/09/24 22:45 Ondansetron HCl (Zofran) 4 mg Q4HP PRN IV NAUSEA / VOMITING 11/09/24 22:45 Docusate Sodium (Colace Capsule) 100 mg BIDPRN PRN PO FOR CONSTIPATION 11/09/24 22:45 Acetaminophen (Tylenol Tablet) 650 mg Q6HP PRN PO PAIN SCALE 1-3 OR TEMP>100.4 11/09/24 22:45 Nitroglycerin (Ntrostat Sublingual) 0.4 mg Q5MINP PRN SL FOR CHEST PAIN 11/09/24 22:45 Morphine Sulfate 2 mg Q30M PRN IV FOR CHEST PAIN 11/09/24 22:45 Levothyroxine Sodium (Synthroid Tablet) 50 mcg QAM@0600 PO 11/10/24 06:00 11/10/24 06:28 Famotidine (Pepcid Injection) 10 mg DAILY IV 11/10/24 10:00 11/10/24 10:11 Methylprednisolone Sodium Succinate (Solu Medrol) 40 mg Q8HR IV 11/11/24 06:00 11/10/24 15:14 DC Albuterol (Ventolin Medneb) 2.5 mg Q4H NEB 11/10/24 00:30 11/10/24 00:46 DC Levalbuterol HCl (Xopenex Medneb) 1.25 mg Q4H NEB 11/10/24 01:00 11/10/24 00:46 DC Levalbuterol HCl (Xopenex Medneb) 1.25 mg Q4H NEB 11/10/24 01:00 11/10/24 13:49 Amiodarone HCl 250 ml @ 33.333 mls/ hr Q7H30M IV 11/10/24 02:15 11/10/24 08:14 DC 11/10/24 02:44 Amiodarone HCl 250 ml @ 16.667 mls/ hr Q15H IV 11/10/24 08:15 11/10/24 08:15 Azithromycin 250 ml @ 125 mls/hr DAILY IV 11/10/24 10:00 11/10/24 10:12 Piperacillin Sod/ Tazobactam Sod 100 ml @ 25 mls/hr Q8H IV 11/10/24 18:00 Vancomycin HCl 0 ml @ 0 mls/hr UD IV 11/10/24 10:45 Metoprolol Succinate (Toprol Xl) 25 mg DAILY PO 11/11/24 10:00 Enoxaparin Sodium (Lovenox) 60 mg DAILY SC 11/11/24 10:00 Insulin Glargine (Lantus) 15 units QAM SC 11/11/24 07:00 Review of Systems as per history of present illness otherwise all systems are reviewed and are noncontributory. H&P Exam Vital Signs/I&O Vital Sign Date Time Temp Pulse Resp B/P (MAP) Pulse Ox O2 Delivery O2 Flow Rate FiO2 11/10/24 15:00 86 20 117/44 (68) 94 11/10/24 13:49 Nasal Cannula 5.0 11/10/24 13:49 40 11/10/24 08:00 98.3 98.3 Intake and Output 11/09/24 11/10/24 19:00 07:00 Intake Total 100 ml Balance 100 ml Intake IV Total 100 ml Physical Exam gen: nad heent: nc lungs: occ ronchi cvs: no rub abd: soft ext: no edema skin: no petechiae Labs/Diagnostic Data Labs/Diagnostic Data Laboratory Tests Test 11/10/24 15:33 11/10/24 14:14 11/10/24 11:28 11/10/24 09:46 Range/Units Lactic Acid Level 4.0 *H 4.1 *H 3.2 *H 0.4-2.0 mmol/L Sodium Level 131 L 136-145 mmol/L Potassium Level 4.2 3.5-5.1 mmol/L Chloride Level 100 98-107 mmol/L Carbon Dioxide Level 19 L 20-31 mmol/L Anion Gap 12 5-15 Blood Urea Nitrogen 37 H 9-23 mg/dL Creatinine 1.53 H 0.550-1.02 mg/dL Glomerular Filtration Rate Calc 33 >90 mL/min BUN/Creatinine Ratio 24.2 H 10.0-20.0 Serum Glucose 435 *H 74-106 mg/dL Calcium Level 9.3 8.7-10.4 mg/dL POC Glucose 363 H 70-106 mg/dl Test 11/10/24 07:35 11/10/24 06:13 11/10/24 05:59 11/09/24 23:17 Range/Units Lactic Acid Level 2.1 *H 0.4-2.0 mmol/L POC Glucose 282 H 70-106 mg/dl White Blood Count 17.8 H 4.4-10.8 10^3/uL Red Blood Count 4.04 4.0-5.20 10^6/uL Hemoglobin 11.5 L 12.2-16.2 g/dL Hematocrit 35.2 L 36.0-46.0 % Mean Corpuscular Volume 87.1 80.0-100.0 fL Mean Corpuscular Hemoglobin 28.6 28.0-32.0 pg Mean Corpuscular Hemoglobin Concent 32.8 32.0-36.0 g/dL Red Cell Distribution Width 15.7 H 11.8-14.3 % Platelet Count 285 140-450 10^3/uL Mean Platelet Volume 7.6 6.9-10.8 fL Neutrophils (%) (Auto) 37.0-80.0 % Lymphocytes (%) (Auto) 10.0-50.0 % Monocytes (%) (Auto) 0.0-12.0 % Basophils (%) (Auto) 0.0-2.0 % Neutrophils # (Auto) 1.6-8.6 10 ^3/uL Lymphocytes # (Auto) 0.4-5.4 10 ^3/uL Monocytes # (Auto) 0-1.3 10 ^3/uL Differential Total Cells Counted 100.0 100 Neutrophils % (Manual) 93 H 37.0-80.0 Band Neutrophils % (Manual) 2 Lymphocytes % (Manual) 3 L 10.0-50.0 Monocytes % (Manual) 2 0-12 Eosinophils % (Manual) 0 0-7 Basophils % (Manual) 0 0.0-2.0 Metamyelocytes % (manual) 0 Myelocytes % (Manual) 0 Promyelocytes % (Manual) 0 Blast Cells % (Manual) 0 Reactive Lymphocytes 0 Platelet Estimate Adequate Sodium Level 133 L 136-145 mmol/L Potassium Level 3.6 3.5-5.1 mmol/L Chloride Level 101 98-107 mmol/L Carbon Dioxide Level 20 20-31 mmol/L Anion Gap 12 5-15 Blood Urea Nitrogen 41 H 9-23 mg/dL Creatinine 1.41 H 0.550-1.02 mg/dL Glomerular Filtration Rate Calc 36 >90 mL/min BUN/Creatinine Ratio 29.1 H 10.0-20.0 Serum Glucose 270 H 74-106 mg/dL Hemoglobin A1c 7.0 H <5.7 % A1C Calcium Level 9.7 8.7-10.4 mg/dL Magnesium Level 1.8 1.6-2.6 mg/dL Total Bilirubin 0.5 0.2-1.0 mg/dL Aspartate Amino Transferase (AST) 25 13-40 U/L Alanine Aminotransferase (ALT) 15 7-40 U/L Alkaline Phosphatase 120 H 46-116 U/L Total Protein 6.7 5.7-8.2 g/dL Albumin 3.9 3.2-4.8 g/dL Triglycerides Level 164 H < 150 mg/dL Cholesterol Level 119 < 200 mg/dL LDL Cholesterol 43 < 100 mg/dL HDL Cholesterol 35 L 40-59 mg/dL Troponin I High Sensitivity 88 *H </=34 ng/L Test 11/09/24 21:59 11/09/24 20:27 11/09/24 20:05 Range/Units Troponin I High Sensitivity 79 *H 82 *H </=34 ng/L White Blood Count 17.1 H 4.4-10.8 10^3/uL Red Blood Count 3.98 L 4.0-5.20 10^6/uL Hemoglobin 11.4 L 12.2-16.2 g/dL Hematocrit 34.9 L 36.0-46.0 % Mean Corpuscular Volume 87.8 80.0-100.0 fL Mean Corpuscular Hemoglobin 28.7 28.0-32.0 pg Mean Corpuscular Hemoglobin Concent 32.6 32.0-36.0 g/dL Red Cell Distribution Width 16.1 H 11.8-14.3 % Platelet Count 290 140-450 10^3/uL Mean Platelet Volume 7.5 6.9-10.8 fL Neutrophils (%) (Auto) 37.0-80.0 % Lymphocytes (%) (Auto) 10.0-50.0 % Monocytes (%) (Auto) 0.0-12.0 % Basophils (%) (Auto) 0.0-2.0 % Neutrophils # (Auto) 1.6-8.6 10 ^3/uL Lymphocytes # (Auto) 0.4-5.4 10 ^3/uL Monocytes # (Auto) 0-1.3 10 ^3/uL Differential Total Cells Counted 100.0 100 Neutrophils % (Manual) 77 37.0-80.0 Band Neutrophils % (Manual) 13 Lymphocytes % (Manual) 4 L 10.0-50.0 Monocytes % (Manual) 6 0-12 Eosinophils % (Manual) 0 0-7 Basophils % (Manual) 0 0.0-2.0 Metamyelocytes % (manual) 0 Myelocytes % (Manual) 0 Promyelocytes % (Manual) 0 Blast Cells % (Manual) 0 Reactive Lymphocytes 0 Platelet Estimate Adequate Sodium Level 136 136-145 mmol/L Potassium Level 3.5 3.5-5.1 mmol/L Chloride Level 103 98-107 mmol/L Carbon Dioxide Level 23 20-31 mmol/L Anion Gap 10 5-15 Blood Urea Nitrogen 49 H 9-23 mg/dL Creatinine 1.55 H 0.550-1.02 mg/dL Glomerular Filtration Rate Calc 32 >90 mL/min BUN/Creatinine Ratio 31.6 H 10.0-20.0 Serum Glucose 167 H 74-106 mg/dL Calcium Level 9.1 8.7-10.4 mg/dL Magnesium Level 1.7 1.6-2.6 mg/dL Total Bilirubin 0.8 0.2-1.0 mg/dL Aspartate Amino Transferase (AST) 29 13-40 U/L Alanine Aminotransferase (ALT) 14 7-40 U/L Alkaline Phosphatase 101 46-116 U/L B-Type Natriuretic Peptide 265.42 0-100 pg/mL Total Protein 5.4 L 5.7-8.2 g/dL Albumin 3.5 3.2-4.8 g/dL Thyroid Stimulating Hormone (TSH) 4.67 0.55-4.78 uIU/mL Influenza Type A Antigen Negative Negative Influenza Type B Antigen Negative Negative Assessment IMP: 1) hemodynamically mediated acute kidney injury and vasomotor nephropathy in setting of hypotension and concurrent ARB therapy 2) CKD IIIa - possibly secondary to hypertension, ischemic nephropathy, diabetes 3) community acquired pneumonia 4) DM II 5) CAD REC: - Agree with holding ARB - will check urine studies, serial chemistry panels - General recommendations to avoid NSAIDs, intravenous contrast studies if able - Will continue to follow closely with you. Thank you for the consultation. Plan discussed with: Other CAM MANZANO MD Nov 10, 2024 16:31
[2024-11-10] MEDS ORDERED: AZITHROMYCIN 500MG/ 250ML 250 ML IV ONE (17:00)
[2024-11-10] MEDS: SODIUM CHLORIDE 0.9% 1,000 ML IV ONE (17:23)
[2024-11-10] MEDS: PIPERACILLIN-TAZOB 3.375GM 100 ML IV SCH (17:23)
[2024-11-10] MEDS: INSULIN LANTUS (GLARGINE) 1 /0.01ml (100units/ml) SC ONE (17:24)
[2024-11-10] MEDS ORDERED: METO25TA93 PO (18:03)
[2024-11-10] MEDS ORDERED: CILO100T3 PO (18:03)
[2024-11-10] MEDS ORDERED: AMLO1TAB23 PO (18:03)
[2024-11-10] MEDS ORDERED: FURO20TA4 PO (18:03)
[2024-11-10] MEDS ORDERED: EZET10TA22 PO (18:03)
[2024-11-10] MEDS: SODIUM CHLORIDE 0.9% 250 ML IV ONE (20:30)
[2024-11-10] MEDS: ATORVASTATIN 20 MG TAB PO SCH (22:20)
[2024-11-10] MEDS ORDERED: cefTRIAXone 1GM/50ML D5W 50 ML IV SCH (23:00)
[2024-11-11] VITALS (16 sets, daily range): BP systolic 119–138; BP diastolic 61–86; PULSE 77–152; RESP 16–21; TEMP 97.5–99.3; O2SAT 91–97
[2024-11-11] MEDS ORDERED: methylPREDNISolone SOD SUCC 40 MG/ML VL IV SCH (06:00)
[2024-11-11] MEDS: INSULIN LANTUS (GLARGINE) 1 /0.01ml (100units/ml) SC SCH (06:35)
[2024-11-11 07:15] LABS: Basophils # (auto) 0 10 ^3/uL (0-0.2); Eosinophils # (auto) 0 10 ^3/uL (0-0.8); Hematocrit 32.3 % (36.0-46.0); Hemoglobin 10.8 g/dL (12.2-16.2); Lymphocytes # (auto) 0.3 10 ^3/uL (0.4-5.4); Lymphocytes % (auto) 1.9 % (10.0-50.0); Mean Corpuscular Hemoglobin 28.9 pg (28.0-32.0); Mean Corpuscular Hgb Conc. 33.3 g/dL (32.0-36.0); Mean Corpuscular Volume 86.8 fL (80.0-100.0); Monocytes # (auto) 0.7 10 ^3/uL (0-1.3); Monocytes % (auto) 4.2 % (0.0-12.0); Neutrophils # (auto) 16.6 10 ^3/uL (1.6-8.6); Neutrophils % (auto) 93.9 % (37.0-80.0); Platelet Count (auto) 287 10^3/uL (140-450); Red Blood Cells 3.72 10^6/uL (4.0-5.20); Red Cell Distribution Width 16.2 % (11.8-14.3); White Blood Cell 17.6 10^3/uL (4.4-10.8)
--- NOTE | 2024-11-11 07:37 | DVH ---
CLINICAL INFORMATION: 84 years old, Female; sob. TECHNIQUE: Single AP portable chest radiograph was obtained. COMPARISON: XY CHEST PORTABLE on DOS: 11/09/24, XY CHEST XRAY 1 VIEW on DOS: 07/17/24, XY CHEST PORTABL E on DOS: 04/06/23 FINDINGS: Bilateral interstitial opacities appear increased, right greater than left. Low lung volumes. No pneu mothorax. No other significant interval change. IMPRESSION: Worsening bilateral interstitial opacities, right greater than left. Findings may be infectious or in flammatory in nature or due to pulmonary edema in the appropriate clinical setting.
[2024-11-11 08:01] LABS: Anion Gap 9 (5-15); Carbon Dioxide 23 mmol/L (20-31); Chloride 103 mmol/L (98-107); Potassium 3.9 mmol/L (3.5-5.1)
[2024-11-11 08:03] LABS: Calcium 9.6 mg/dL (8.7-10.4)
[2024-11-11 08:04] LABS: Sodium 135 mmol/L (136-145)
[2024-11-11 08:08] LABS: BUN/Creatinine Ratio 30.1 (10.0-20.0); Blood Urea Nitrogen 43 mg/dL (9-23); Glucose 203 mg/dL (74-106); Magnesium 2.1 mg/dL (1.6-2.6)
[2024-11-11 08:48] LABS: Uric Acid 8.6 mg/dL (3.1-7.8)
[2024-11-11] MEDS: METOPROLOL SUCCINATE XL 50 MG TAB PO SCH (09:59)
[2024-11-11] MEDS ORDERED: FUROSEMIDE 20 MG/2 ML VIAL IV SCH ×2 (10:00→18:00)
[2024-11-11] MEDS: ENOXAPARIN SOD 60 MG/0.6 ML SYRINGE SC SCH (10:01)
--- NOTE | 2024-11-11 11:05 | DVHPNRES ---
Progress Note Date Seen: Nov 11, 2024 Resident Creating Document: MORENO NEELY RESIDENT Medical Necessity Reason Pt with a Central, PICC or Fol: No Subjective Review of Systems pt seen and examined at bedside, mentioning improvement in her symptoms, currently on 5l 02 through nasal canula. Objective vital signs Vital Sign Date Time Temp Pulse Resp B/P (MAP) Pulse Ox O2 Delivery O2 Flow Rate FiO2 11/11/24 09:59 116 136/74 11/11/24 08:59 98.0 20 96 98.0 11/11/24 07:03 Nasal Cannula 5.0 11/11/24 07:03 40 Total Intake and Output 11/10/24 11/10/24 11/11/24 15:00 23:00 07:00 Intake Total 530 ml 400 ml Output Total 100 ml Balance 430 ml 400 ml medications Current Medications Medications Dose Ordered Sig/Elke Route Start Time Stop Time Status Last Admin Dose Admin Aspirin 81 mg DAILY PO 11/10/24 10:00 11/11/24 09:58 81 MG Atorvastatin Calcium 20 mg HS PO 11/10/24 22:00 11/10/24 22:20 20 MG Ipratropium [place] 0.5 mg Q4HPRN PRN NEB 11/09/24 22:45 11/10/24 22:33 0.5 MG Diagnostic Test (Pha) 1 strip ACHS 11/10/24 07:00 11/11/24 06:36 1 STRIP Insulin Human Regular HS SC 11/10/24 22:00 11/10/24 22:22 4 UNITS Insulin Human Regular AC SC 11/10/24 07:00 11/11/24 06:23 6 UNITS Dextrose 50 ml UD PRN IV 11/09/24 22:45 Sodium Chloride 10 ml Q8HR IV 11/10/24 06:00 11/11/24 05:31 10 ML Acetaminophen/ Hydrocodone Bitart 1 tab Q4HP PRN PO 11/09/24 22:45 Ondansetron HCl 4 mg Q4HP PRN IV 11/09/24 22:45 Docusate Sodium 100 mg BIDPRN PRN PO 11/09/24 22:45 Acetaminophen 650 mg Q6HP PRN PO 11/09/24 22:45 Nitroglycerin 0.4 mg Q5MINP PRN SL 11/09/24 22:45 Morphine Sulfate 2 mg Q30M PRN IV 11/09/24 22:45 Levothyroxine Sodium 50 mcg QAM@0600 PO 11/10/24 06:00 11/11/24 06:23 50 MCG Famotidine 10 mg DAILY IV 11/10/24 10:00 11/11/24 09:58 10 MG Levalbuterol HCl 1.25 mg Q4H NEB 11/10/24 01:00 11/11/24 07:03 1.25 MG Amiodarone HCl 250 ml @ 16.667 mls/ hr Q15H IV 11/10/24 08:15 11/10/24 23:15 16.667 MLS/HR Piperacillin Sod/ Tazobactam Sod 100 ml @ 25 mls/hr Q8H IV 11/10/24 18:00 11/11/24 09:58 25 MLS/HR Vancomycin HCl 0 ml @ 0 mls/hr UD IV 11/10/24 10:45 Metoprolol Succinate 25 mg DAILY PO 11/11/24 10:00 11/11/24 09:59 25 MG Enoxaparin Sodium 60 mg DAILY SC 11/11/24 10:00 11/11/24 10:01 60 MG Insulin Glargine 15 units QAM SC 11/11/24 07:00 11/11/24 06:35 15 UNITS Azithromycin 250 ml @ 125 mls/hr DAILY IV 11/11/24 10:00 Furosemide 20 mg BIDD IV 11/11/24 18:00 Examination Examination General Appearance: On 5 L through nasal cannula HEENT: EOMI Respiratory: Clear to auscultation, Normal air movement, bilateral crackles R>>L Cardiovascular: Regular rate, Normal S1, Normal S2 Abdominal: Normal bowel sounds Extremities: No cyanosis, No edema, Normal pulses, No tenderness/swelling Skin: No rashes, No breakdown Neuro: Normal speech and tone laboratory and microbiology Laboratory Tests 11/11/24 06:32 Test 11/11/24 06:32 Range/Units Serum Glucose 203 H 74-106 mg/dL Microbiology Date/Time Source Procedure Growth Status 11/09/24 23:50 Blood Blood Culture - Preliminary NO GROWTH AFTER 24 HOURS OF INCUBATION. Resulted Labs and/or images reviewed: Labs reviewed by me, Image(s) reviewed by me Problem List/Assessment/Plan Problem List/Assessment/Plan Assessment/plan # acute hypoxic respiratory failure due to community-acquired pneumonia -currently on 5 L of oxygen through nasal cannula Nebulization with ipratropium and albuterol CT angio chest ordered , to rule out PE # possible sepsis due to community-acquired pneumonia -IV antibiotics -MRSA screen -pancultures # community-acquired pneumonia, Gram-positive/Gram-negative -IV antibiotics Pancultures #? New onset AFib -currently on therapeutic Lovenox and metoprolol -amiodarone drip # history of coronary artery disease -no active chest complaints #hyperlipidemia -will resume home Meds DVT prophylaxis -pt is on therapeutic Lovenox Code status discussed with the patient for >21min, full code Case discussion with Dr Merritt critical care time 45 mins Plan discussed with: Patient, Other My Orders My Orders Orders - MORENO NEELY Procedure Category Date Status Time Respiratory Culture GASTON 11/10/24 Logged W/ Gs 11:09 Mrsa Screen GASTON 11/10/24 In Process 11:09 Insulin Lantus PHA 11/11/24 In Process (Glargine) (Lantus) 07:00 Azithromycin 500mg/ PHA 11/11/24 In Process 250ml (Zithromax 50 10:00 Chest Portable XY 11/11/24 Resulted 07:00 Furosemide Injection PHA 11/11/24 In Process (Lasix Injection) 18:00 Urinalysis LAB 11/11/24 Logged 10:54 Furosemide Injection PHA 11/11/24 Verified (Lasix Injection) 18:00 Furosemide Injection PHA 11/11/24 Verified (Lasix Injection) 11:00 Date of Service: Nov 11, 2024 Billing Provider: KEYLA MERRITT MD Common Visit Codes: [id number] CARE 30-74 MIN MORENO NEELY Nov 11, 2024 11:05 KEYLA MERRITT MD Nov 12, 2024 11:02
[2024-11-11] MEDS: FUROSEMIDE 20 MG/2 ML VIAL IV ONE (11:57)
--- NOTE | 2024-11-11 15:28 | DVH ---
Bilateral lower extremity venous duplex Clinical History: RULE OUT DVT Comparison: None Technique: Duplex Doppler evaluation of the deep venous systems of both lower extremities from the common femora l veins to the popliteal veins including color Doppler and spectral/pulsed waveform analysis was perf ormed. Findings: RIGHT SIDE: The common femoral vein demonstrates appropriate compressibility and waveform variability. There is compressibility/patency of the great saphenous vein at the proximal thigh. The femoral vein demonstrates appropriate compressibility and waveform variability. The deep femoral vein demonstrates appropriate compressibility and waveform variability. The popliteal vein demonstrates appropriate compressibility and waveform variability. There is normal compressibility at the tibioperoneal trunk. LEFT SIDE: The common femoral vein demonstrates appropriate compressibility and waveform variability. There is compressibility/patency of the great saphenous vein at the proximal thigh. The femoral vein demonstrates appropriate compressibility and waveform variability. The deep femoral vein demonstrates appropriate compressibility and waveform variability. The popliteal vein demonstrates appropriate compressibility and waveform variability. There is normal compressibility at the tibioperoneal trunk. Impression: 1. No right or left femoropopliteal venous thrombosis. HS:Y
--- NOTE | 2024-11-11 16:01 | DVHPN2 ---
Consult Progress Note Subjective Other Systems: Patient remains in atrial fibrillation on director marketing communications Objective vital signs Vital Sign Date Time Temp Pulse Resp B/P (MAP) Pulse Ox O2 Delivery O2 Flow Rate FiO2 11/11/24 13:00 98.3 101 18 119/63 (81) 93 98.3 11/11/24 11:17 Nasal Cannula 5.0 11/11/24 11:17 40 Total Intake and Output 11/10/24 11/10/24 11/11/24 15:00 23:00 07:00 Intake Total 530 ml 400 ml Output Total 100 ml Balance 430 ml 400 ml medications Current Medications Medications Dose Ordered Sig/Elke Route Start Time Stop Time Status Last Admin Dose Admin Aspirin 81 mg DAILY PO 11/10/24 10:00 11/11/24 09:58 81 MG Atorvastatin Calcium 20 mg HS PO 11/10/24 22:00 11/10/24 22:20 20 MG Ipratropium [place] 0.5 mg Q4HPRN PRN NEB 11/09/24 22:45 11/10/24 22:33 0.5 MG Diagnostic Test (Pha) 1 strip ACHS 11/10/24 07:00 11/11/24 11:54 1 STRIP Insulin Human Regular HS SC 11/10/24 22:00 11/10/24 22:22 4 UNITS Insulin Human Regular AC SC 11/10/24 07:00 11/11/24 11:55 6 UNITS Dextrose 50 ml UD PRN IV 11/09/24 22:45 Sodium Chloride 10 ml Q8HR IV 11/10/24 06:00 11/11/24 05:31 10 ML Acetaminophen/ Hydrocodone Bitart 1 tab Q4HP PRN PO 11/09/24 22:45 Ondansetron HCl 4 mg Q4HP PRN IV 11/09/24 22:45 Docusate Sodium 100 mg BIDPRN PRN PO 11/09/24 22:45 Acetaminophen 650 mg Q6HP PRN PO 11/09/24 22:45 Nitroglycerin 0.4 mg Q5MINP PRN SL 11/09/24 22:45 Morphine Sulfate 2 mg Q30M PRN IV 11/09/24 22:45 Levothyroxine Sodium 50 mcg QAM@0600 PO 11/10/24 06:00 11/11/24 06:23 50 MCG Famotidine 10 mg DAILY IV 11/10/24 10:00 11/11/24 09:58 10 MG Levalbuterol HCl 1.25 mg Q4H NEB 11/10/24 01:00 11/11/24 11:17 1.25 MG Amiodarone HCl 250 ml @ 16.667 mls/ hr Q15H IV 11/10/24 08:15 11/10/24 23:15 16.667 MLS/HR Piperacillin Sod/ Tazobactam Sod 100 ml @ 25 mls/hr Q8H IV 11/10/24 18:00 11/11/24 09:58 25 MLS/HR Vancomycin HCl 0 ml @ 0 mls/hr UD IV 11/10/24 10:45 Metoprolol Succinate 25 mg DAILY PO 11/11/24 10:00 11/11/24 09:59 25 MG Enoxaparin Sodium 60 mg DAILY SC 11/11/24 10:00 11/11/24 10:01 60 MG Insulin Glargine 15 units QAM SC 11/11/24 07:00 11/11/24 06:35 15 UNITS Azithromycin 250 ml @ 125 mls/hr DAILY IV 11/11/24 10:00 Furosemide 40 mg BIDD IV 11/11/24 18:00 Vancomycin HCl 100 ml @ 200 mls/hr Q24H IV 11/11/24 13:00 Examination: GENERAL:Normal, LUNGS:Abnormal (Coarse bilateral breath sounds), CVS:Normal, NEURO:Normal laboratory and microbiology Laboratory Tests 11/11/24 06:32 Test 11/11/24 06:32 Range/Units Serum Glucose 203 H 74-106 mg/dL Problem List/Assessment/Plan Problem List/Assessment/Plan Atrial fibrillation with rapid ventricular response, new onset Sepsis Pneumonia NSTEMI type II secondary to above Coronary artery disease status post PTCA x1 JOSE (on ASA) History myocardial infarction Hypertension Hyperlipidemia Peripheral vascular disease Acute kidney injury Type 2 diabetes mellitus Thyroid disease History of tobacco use Plan/Recommendation (Dr. Cedillo): * Echocardiogram reveals EF 55% * [id number] VASc score: 6 points HAS-BLED score: 2 points * Continue therapeutic Lovenox, transition to NOAC when appropriate * Beta-мария for rate control, up-titrate as tolerated * Antiarrhythmic agent, amiodarone * Continue single antiplatelet therapy and lipid-lowering agent * Antibiotics per primary care team * Monitor and replete electrolytes as needed, keep potassium above 4 and magnesium above 2 Thank you for allowing us to care for this patient. Please call with any questions or concerns. This medical document was created using an electronic medical record system with voice recognition software and computerized dictation system. Although this document has been carefully reviewed, there might still be some phonetic and typographical errors. Occasional wrong-word or ``sound-alike substitutions may have occurred due to the inherent limitations of voice recognition software. These areas are purely typographical due to imperfections of the software programs and do not reflect any compromise in the patient's medical care. Please read the chart carefully and recognize, using context, where these substitutions have occurred. Plan discussed with: Patient Date of Service: Nov 11, 2024 Billing Provider: PETER CEDILLO MD Common Visit Codes: [id number] INP/OBS CARE(HIGH) KATHY RODRIGUEZ [facility] Nov 11, 2024 16:01
--- NOTE | 2024-11-11 16:29 | DVHPN2 ---
Progress Note Date Seen: Nov 11, 2024 Medical Necessity Reason Pt with a Central, PICC or Fol: No Subjective Review of Systems: RESPIRATORY:Abnormal Other Systems: Patient seen and examined by myself today in f/u Objective vital signs Vital Sign Date Time Temp Pulse Resp B/P (MAP) Pulse Ox O2 Delivery O2 Flow Rate FiO2 11/11/24 13:00 98.3 101 18 119/63 (81) 93 98.3 11/11/24 11:17 Nasal Cannula 5.0 11/11/24 11:17 40 Total Intake and Output 11/10/24 11/10/24 11/11/24 15:00 23:00 07:00 Intake Total 530 ml 400 ml Output Total 100 ml Balance 430 ml 400 ml medications Current Medications Medications Dose Ordered Sig/Elke Route Start Time Stop Time Status Last Admin Dose Admin Aspirin 81 mg DAILY PO 11/10/24 10:00 11/11/24 09:58 81 MG Atorvastatin Calcium 20 mg HS PO 11/10/24 22:00 11/10/24 22:20 20 MG Ipratropium [place] 0.5 mg Q4HPRN PRN NEB 11/09/24 22:45 11/10/24 22:33 0.5 MG Diagnostic Test (Pha) 1 strip ACHS 11/10/24 07:00 11/11/24 11:54 1 STRIP Insulin Human Regular HS SC 11/10/24 22:00 11/10/24 22:22 4 UNITS Insulin Human Regular AC SC 11/10/24 07:00 11/11/24 11:55 6 UNITS Dextrose 50 ml UD PRN IV 11/09/24 22:45 Sodium Chloride 10 ml Q8HR IV 11/10/24 06:00 11/11/24 05:31 10 ML Acetaminophen/ Hydrocodone Bitart 1 tab Q4HP PRN PO 11/09/24 22:45 Ondansetron HCl 4 mg Q4HP PRN IV 11/09/24 22:45 Docusate Sodium 100 mg BIDPRN PRN PO 11/09/24 22:45 Acetaminophen 650 mg Q6HP PRN PO 11/09/24 22:45 Nitroglycerin 0.4 mg Q5MINP PRN SL 11/09/24 22:45 Morphine Sulfate 2 mg Q30M PRN IV 11/09/24 22:45 Levothyroxine Sodium 50 mcg QAM@0600 PO 11/10/24 06:00 11/11/24 06:23 50 MCG Famotidine 10 mg DAILY IV 11/10/24 10:00 11/11/24 09:58 10 MG Levalbuterol HCl 1.25 mg Q4H NEB 11/10/24 01:00 11/11/24 11:17 1.25 MG Amiodarone HCl 250 ml @ 16.667 mls/ hr Q15H IV 11/10/24 08:15 11/10/24 23:15 16.667 MLS/HR Piperacillin Sod/ Tazobactam Sod 100 ml @ 25 mls/hr Q8H IV 11/10/24 18:00 11/11/24 09:58 25 MLS/HR Vancomycin HCl 0 ml @ 0 mls/hr UD IV 11/10/24 10:45 Metoprolol Succinate 25 mg DAILY PO 11/11/24 10:00 11/11/24 09:59 25 MG Enoxaparin Sodium 60 mg DAILY SC 11/11/24 10:00 11/11/24 10:01 60 MG Insulin Glargine 15 units QAM SC 11/11/24 07:00 11/11/24 06:35 15 UNITS Azithromycin 250 ml @ 125 mls/hr DAILY IV 11/11/24 10:00 Furosemide 40 mg BIDD IV 11/11/24 18:00 Vancomycin HCl 100 ml @ 200 mls/hr Q24H IV 11/11/24 13:00 Examination: LUNGS:Normal, CVS:Normal, MSK:Normal laboratory and microbiology Laboratory Tests 11/11/24 06:32 Test 11/11/24 06:32 Range/Units Serum Glucose 203 H 74-106 mg/dL Microbiology Date/Time Source Procedure Growth Status 11/10/24 13:00 Nose MRSA Screen - Final Complete 11/09/24 23:50 Blood Blood Culture - Preliminary NO GROWTH AFTER 24 HOURS OF INCUBATION. Resulted Problem List/Assessment/Plan Problem List/Assessment/Plan hemodynamically mediated acute kidney injury and vasomotor nephropathy in setting of hypotension and concurrent ARB therapy CKD IIIa - possibly secondary to hypertension, ischemic nephropathy, diabetes community acquired pneumonia DM II CAD A fib with RvR REC: - Agree with holding ARB - check urine studies, serial chemistry panels - General recommendations to avoid NSAIDs, intravenous contrast studies if able - Check kidney US - Will continue to follow closely with you. Plan discussed with: Patient ANGELICA UMANA MD Nov 11, 2024 16:29
--- NOTE | 2024-11-11 17:23 | DVH ---
Renal ultrasound HISTORY: juana TECHNIQUE: 2 D ultrasound was performed with transaxial and longitudinal images. FINDINGS: Right kidney measures 8.4 cm and left kidney measures 8.4. Cm No renal masses, stones or hy dronephrosis. Cortical thickness and echogenicity normal. Urinary bladder shows prevoid volume of 329 mL. Bladder wall thickness 2.2 mm. Patient unable to vo id on command IMPRESSION: 1. No evidence of renal mass stone or hydronephrosis 2. Patient unable to void
[2024-11-11] MEDS: FUROSEMIDE 20 MG/2 ML VIAL IV SCH (17:54)
[2024-11-11] MEDS: IOHEXOL 350 MG/ML 100ML IJ ONE ×2 (18:12→18:36)
[2024-11-11 18:20] LABS: Phosphorus 3.1 mg/dL (2.4-5.1)
[2024-11-11] MEDS: AZITHROMYCIN 500MG/ 250ML 250 ML IV SCH (18:55)
--- NOTE | 2024-11-11 19:26 | DVH ---
EXAM: CT CT ANGIO CHEST CONTRAST History: RULE OUT PE Comparison Study: None available TECHNIQUE: A digital personal computer network analyst image was obtained. During the uneventful, intravenous administration of c ontrast material, multislice data acquisition was obtained through the chest. 3-D postprocessing is performed by technologist including MIP imaging Radiation Dose : CTDI vol 14.8 mGy, DLP 301.72 mGy*cm. Findings: Lungs: Right lower lobe consolidation. Pleura: Unremarkable Heart/Great vessels: Cardiomegaly. No pericardial effusion. No pulmonary embolism, aneurysm, or disse ction. Mild coronary atherosclerosis. Enlarged pulmonary arteries. Mediastinum: Small hiatal hernia. Soft tissues/Bones: Unremarkable 1.7 cm left adrenal adenoma. Cholelithiasis. Diverticulosis. The remaining partially visualized upper abdomen is within normal limits. Impression: 1. No evidence of pulmonary embolism, aortic aneurysm, or dissection. 2. Right lower lobe consolidation favored an infectious/inflammatory etiology. 3. Enlarged pulmonary arteries. Correlate for pulmonary artery hypertension. 4. Other non-acute, ancillary findings as described above.
[2024-11-11] MEDS: VANCOMYCIN 500mg/100mL 100 ML IV SCH (19:57)
[2024-11-11] MEDS: PIPERACILLIN-TAZOB 3.375GM 100 ML IV SCH (23:18)
[2024-11-12] VITALS (18 sets, daily range): BP systolic 98–147; BP diastolic 55–73; PULSE 75–94; RESP 16–20; TEMP 97.7–98.3; O2SAT 90–100
[2024-11-12 01:06] LABS: COVID19 ANTIGEN SOFIA FIA NEGATIVE (NEGATIVE)
[2024-11-12 07:55] LABS: Basophils # (auto) 0 10 ^3/uL (0-0.2); Eosinophils # (auto) 0 10 ^3/uL (0-0.8); Hematocrit 36.3 % (36.0-46.0); Hemoglobin 12.1 g/dL (12.2-16.2); Lymphocytes # (auto) 0.8 10 ^3/uL (0.4-5.4); Lymphocytes % (auto) 6.1 % (10.0-50.0); Mean Corpuscular Hemoglobin 28.7 pg (28.0-32.0); Mean Corpuscular Hgb Conc. 33.3 g/dL (32.0-36.0); Mean Corpuscular Volume 86.2 fL (80.0-100.0); Monocytes # (auto) 1.3 10 ^3/uL (0-1.3); Monocytes % (auto) 10.4 % (0.0-12.0); Neutrophils # (auto) 10.6 10 ^3/uL (1.6-8.6); Neutrophils % (auto) 83.5 % (37.0-80.0); Nucleated Red Blood Cells % 0.1 %; Platelet Count (auto) 332 10^3/uL (140-450); Red Blood Cells 4.22 10^6/uL (4.0-5.20); Red Cell Distribution Width 16.1 % (11.8-14.3); White Blood Cell 12.7 10^3/uL (4.4-10.8)
[2024-11-12 08:25] LABS: Chloride 99 mmol/L (98-107); Sodium 137 mmol/L (136-145)
[2024-11-12 08:26] LABS: Anion Gap 11 (5-15); Carbon Dioxide 27 mmol/L (20-31)
[2024-11-12 08:27] LABS: Calcium 9.8 mg/dL (8.7-10.4)
[2024-11-12 08:30] LABS: Potassium 3.4 mmol/L (3.5-5.1)
[2024-11-12 08:31] LABS: BUN/Creatinine Ratio 29.3 (10.0-20.0)
[2024-11-12 08:32] LABS: Magnesium 1.9 mg/dL (1.6-2.6)
[2024-11-12 08:34] LABS: Blood Urea Nitrogen 39 mg/dL (9-23); Glucose 114 mg/dL (74-106)
--- NOTE | 2024-11-12 10:40 | DVHPN2 ---
Consult Progress Note Subjective Other Systems: Patient converted into normal sinus rhythm on color television console monitor. Twelve lead electrocardiogram confirms normal sinus rhythm. Objective vital signs Vital Sign Date Time Temp Pulse Resp B/P (MAP) Pulse Ox O2 Delivery O2 Flow Rate FiO2 11/12/24 10:00 80 18 99 11/12/24 09:52 Nasal Cannula* 4 36 11/12/24 09:00 98.2 141/65 (90) 98.2 Total Intake and Output 11/11/24 11/11/24 11/12/24 15:00 23:00 07:00 Intake Total 100 ml 1750 ml 340 ml Balance 100 ml 1750 ml 340 ml medications Current Medications Medications Dose Ordered Sig/Elke Route Start Time Stop Time Status Last Admin Dose Admin Aspirin 81 mg DAILY PO 11/10/24 10:00 11/11/24 09:58 81 MG Atorvastatin Calcium 20 mg HS PO 11/10/24 22:00 11/11/24 21:52 20 MG Ipratropium [place] 0.5 mg Q4HPRN PRN NEB 11/09/24 22:45 11/10/24 22:33 0.5 MG Diagnostic Test (Pha) 1 strip ACHS 11/10/24 07:00 11/12/24 05:30 1 STRIP Insulin Human Regular HS SC 11/10/24 22:00 11/10/24 22:22 4 UNITS Insulin Human Regular AC SC 11/10/24 07:00 11/11/24 11:55 6 UNITS Dextrose 50 ml UD PRN IV 11/09/24 22:45 Sodium Chloride 10 ml Q8HR IV 11/10/24 06:00 11/12/24 05:30 10 ML Acetaminophen/ Hydrocodone Bitart 1 tab Q4HP PRN PO 11/09/24 22:45 Ondansetron HCl 4 mg Q4HP PRN IV 11/09/24 22:45 Docusate Sodium 100 mg BIDPRN PRN PO 11/09/24 22:45 Acetaminophen 650 mg Q6HP PRN PO 11/09/24 22:45 Nitroglycerin 0.4 mg Q5MINP PRN SL 11/09/24 22:45 Morphine Sulfate 2 mg Q30M PRN IV 11/09/24 22:45 Levothyroxine Sodium 50 mcg QAM@0600 PO 11/10/24 06:00 11/12/24 05:17 50 MCG Famotidine 10 mg DAILY IV 11/10/24 10:00 11/11/24 09:58 10 MG Levalbuterol HCl 1.25 mg Q4H NEB 11/10/24 01:00 11/12/24 09:52 1.25 MG Amiodarone HCl 250 ml @ 16.667 mls/ hr Q15H IV 11/10/24 08:15 11/12/24 05:17 16.667 MLS/HR Vancomycin HCl 0 ml @ 0 mls/hr UD IV 11/10/24 10:45 Metoprolol Succinate 25 mg DAILY PO 11/11/24 10:00 11/11/24 09:59 25 MG Enoxaparin Sodium 60 mg DAILY SC 11/11/24 10:00 11/11/24 10:01 60 MG Insulin Glargine 15 units QAM SC 11/11/24 07:00 11/12/24 05:40 15 UNITS Azithromycin 250 ml @ 125 mls/hr DAILY IV 11/11/24 10:00 11/11/24 18:55 125 MLS/HR Furosemide 40 mg BIDD IV 11/11/24 18:00 11/12/24 05:20 40 MG Vancomycin HCl 100 ml @ 200 mls/hr Q24H IV 11/11/24 13:00 11/11/24 19:57 200 MLS/HR Piperacillin Sod/ Tazobactam Sod 100 ml @ 25 mls/hr Q8H IV 11/11/24 21:00 11/12/24 05:16 25 MLS/HR Examination: GENERAL:Normal, LUNGS:Normal, CVS:Normal, NEURO:Normal laboratory and microbiology Laboratory Tests 11/12/24 06:17 Test 11/12/24 06:17 Range/Units Serum Glucose 114 H 74-106 mg/dL Problem List/Assessment/Plan Problem List/Assessment/Plan Atrial fibrillation with rapid ventricular response, new onset, now normal sinus rhythm Sepsis Pneumonia NSTEMI type II secondary to above Coronary artery disease status post PTCA x1 JOSE (on ASA) History myocardial infarction Hypertension Hyperlipidemia Peripheral vascular disease Acute kidney injury Type 2 diabetes mellitus Thyroid disease History of tobacco use Plan/Recommendation (Dr. Cedillo): * Echocardiogram reveals EF 55% * [id number] VASc score: 6 points HAS-BLED score: 2 points * Continue therapeutic Lovenox, transition to NOAC when appropriate * Beta-мария for rate control, up-titrate as tolerated * Antiarrhythmic agent, oral amiodarone * Continue single antiplatelet therapy and lipid-lowering agent * Antibiotics per primary care team * Monitor and replete electrolytes as needed, keep potassium above 4 and magnesium above 2 There is no further inpatient cardiac workup indicated at this time. Patient should follow up with Cardiology in the outpatient setting in 1-2 weeks post discharge. Thank you for allowing us to care for this patient. Please call with any questions or concerns. This medical document was created using an electronic medical record system with voice recognition software and computerized dictation system. Although this document has been carefully reviewed, there might still be some phonetic and typographical errors. Occasional wrong-word or ``sound-alike substitutions may have occurred due to the inherent limitations of voice recognition software. These areas are purely typographical due to imperfections of the software programs and do not reflect any compromise in the patient's medical care. Please read the chart carefully and recognize, using context, where these substitutions have occurred. Plan discussed with: Patient Date of Service: Nov 12, 2024 Billing Provider: PETER CEDILLO MD Common Visit Codes: [id number] INP/OBS CARE(HIGH) KATHY RODRIGUEZ [employer] Nov 12, 2024 10:40
[2024-11-12] MEDS: POTASSIUM EFFERVESENT TAB 25 MEQ PO ONE (10:47)
[2024-11-12] MEDS: AMIODARONE HCL 200 MG TAB PO ONE (11:11)
--- NOTE | 2024-11-12 12:34 | DVHPN2 ---
Progress Note Date Seen: Nov 12, 2024 Medical Necessity Reason Pt with a Central, PICC or Fol: No Subjective Review of Systems: RESPIRATORY:Abnormal Other Systems: Patient seen and examined by myself today in follow-up, O2 nasal cannula Objective vital signs Vital Sign Date Time Temp Pulse Resp B/P (MAP) Pulse Ox O2 Delivery O2 Flow Rate FiO2 11/12/24 10:42 86 141/65 11/12/24 10:00 18 99 11/12/24 09:52 Nasal Cannula* 4 36 11/12/24 09:00 98.2 98.2 Total Intake and Output 11/11/24 11/11/24 11/12/24 15:00 23:00 07:00 Intake Total 100 ml 1750 ml 340 ml Balance 100 ml 1750 ml 340 ml medications Current Medications Medications Dose Ordered Sig/Elke Route Start Time Stop Time Status Last Admin Dose Admin Aspirin 81 mg DAILY PO 11/10/24 10:00 11/12/24 10:43 81 MG Atorvastatin Calcium 20 mg HS PO 11/10/24 22:00 11/11/24 21:52 20 MG Ipratropium [place] 0.5 mg Q4HPRN PRN NEB 11/09/24 22:45 11/10/24 22:33 0.5 MG Diagnostic Test (Pha) 1 strip ACHS 11/10/24 07:00 11/12/24 11:10 1 STRIP Insulin Human Regular HS SC 11/10/24 22:00 11/10/24 22:22 4 UNITS Insulin Human Regular AC SC 11/10/24 07:00 11/11/24 11:55 6 UNITS Dextrose 50 ml UD PRN IV 11/09/24 22:45 Sodium Chloride 10 ml Q8HR IV 11/10/24 06:00 11/12/24 05:30 10 ML Acetaminophen/ Hydrocodone Bitart 1 tab Q4HP PRN PO 11/09/24 22:45 Ondansetron HCl 4 mg Q4HP PRN IV 11/09/24 22:45 Docusate Sodium 100 mg BIDPRN PRN PO 11/09/24 22:45 Acetaminophen 650 mg Q6HP PRN PO 11/09/24 22:45 Nitroglycerin 0.4 mg Q5MINP PRN SL 11/09/24 22:45 Morphine Sulfate 2 mg Q30M PRN IV 11/09/24 22:45 Levothyroxine Sodium 50 mcg QAM@0600 PO 11/10/24 06:00 11/12/24 05:17 50 MCG Famotidine 10 mg DAILY IV 11/10/24 10:00 11/12/24 10:46 10 MG Levalbuterol HCl 1.25 mg Q4H NEB 11/10/24 01:00 11/12/24 09:52 1.25 MG Vancomycin HCl 0 ml @ 0 mls/hr UD IV 11/10/24 10:45 Metoprolol Succinate 25 mg DAILY PO 11/11/24 10:00 11/12/24 10:42 25 MG Enoxaparin Sodium 60 mg DAILY SC 11/11/24 10:00 11/12/24 10:38 60 MG Insulin Glargine 15 units QAM SC 11/11/24 07:00 11/12/24 05:40 15 UNITS Azithromycin 250 ml @ 125 mls/hr DAILY IV 11/11/24 10:00 11/12/24 10:58 125 MLS/HR Furosemide 40 mg BIDD IV 11/11/24 18:00 11/12/24 05:20 40 MG Vancomycin HCl 100 ml @ 200 mls/hr Q24H IV 11/11/24 13:00 11/11/24 19:57 200 MLS/HR Piperacillin Sod/ Tazobactam Sod 100 ml @ 25 mls/hr Q8H IV 11/11/24 21:00 11/12/24 05:16 25 MLS/HR Amiodarone HCl 200 mg Q12HR PO 11/12/24 22:00 Examination: LUNGS:Normal, CVS:Normal, MSK:Normal laboratory and microbiology Laboratory Tests 11/12/24 06:17 Test 11/12/24 06:17 Range/Units Serum Glucose 114 H 74-106 mg/dL Microbiology Date/Time Source Procedure Growth Status 11/10/24 13:00 Nose MRSA Screen - Final Complete 11/09/24 23:50 Blood Blood Culture - Preliminary NO GROWTH AFTER 48 HOURS OF INCUBATION. Resulted Problem List/Assessment/Plan Problem List/Assessment/Plan hemodynamically mediated acute kidney injury and vasomotor nephropathy in setting of hypotension and concurrent ARB therapy CKD IIIa - possibly secondary to hypertension, ischemic nephropathy, diabetes community acquired pneumonia DM II CAD A fib with RvR REC: Kidney function stabilize Chronic Kidney Disease stage IIIB No urine output charted Dobbins catheter Strict I&Os Furosemide 40 mg IV q.day Kidney ultrasound reported within normal limit Cardiology consult - Will continue to follow closely with you. Plan discussed with: Patient My Orders My Orders Orders - ANGELICA UMANA MD Procedure Category Date Status Time Kidney US 11/11/24 Resulted 16:28 Urine Sodium LAB 11/11/24 Logged 16:28 Urinalysis LAB 11/11/24 Logged 16:28 Urine LAB 11/11/24 Logged Protein/Creatinine 16:28 ANGELICA UMANA MD Nov 12, 2024 12:34
[2024-11-12 14:19] LABS: Urine Bacteria None Seen /hpf (None Seen)
[2024-11-12 14:38] LABS: Urine Blood 1+ /uL (Negative); Urine Clarity Turbid (Clear); Urine Color Light-Yellow (Yellow); Urine Mucus FEW (None Seen); Urine Protein, UAD Negative (Negative); Urine Specific Gravity 1.013 (1.001-1.035); Urine Squamous Epithelial Cell FEW /hpf (<5); Urine Urobilinogen Normal (Negative); Urine WBC 1 /hpf (0 - 5); Urine pH 5.5 (5.0-9.0)
[2024-11-12 14:48] LABS: Creatinine, Urine 19.71 mg/dL (30.0-125.0); Urine Protein/Creatinine Ratio 1.17
--- NOTE | 2024-11-12 15:28 | DVHPNRES ---
Progress Note Date Seen: Nov 12, 2024 Resident Creating Document: MORENO NEELY RESIDENT Medical Necessity Reason Pt with a Central, PICC or Fol: No Subjective Review of Systems pt seen and examined at bedside, mentions of improvement in her symptoms. currently on 2lt of oxygen through nasal canula. Objective vital signs Vital Sign Date Time Temp Pulse Resp B/P (MAP) Pulse Ox O2 Delivery O2 Flow Rate FiO2 11/12/24 14:20 75 18 99 11/12/24 14:10 Nasal Cannula 2.0 11/12/24 14:10 28 11/12/24 13:00 98.3 135/73 (93) 98.3 Total Intake and Output 11/11/24 11/11/24 11/12/24 15:00 23:00 07:00 Intake Total 100 ml 1750 ml 340 ml Balance 100 ml 1750 ml 340 ml medications Current Medications Medications Dose Ordered Sig/Elke Route Start Time Stop Time Status Last Admin Dose Admin Aspirin 81 mg DAILY PO 11/10/24 10:00 11/12/24 10:43 81 MG Atorvastatin Calcium 20 mg HS PO 11/10/24 22:00 11/11/24 21:52 20 MG Ipratropium [place] 0.5 mg Q4HPRN PRN NEB 11/09/24 22:45 11/10/24 22:33 0.5 MG Diagnostic Test (Pha) 1 strip ACHS 11/10/24 07:00 11/12/24 11:10 1 STRIP Insulin Human Regular HS SC 11/10/24 22:00 11/10/24 22:22 4 UNITS Insulin Human Regular AC SC 11/10/24 07:00 11/11/24 11:55 6 UNITS Dextrose 50 ml UD PRN IV 11/09/24 22:45 Sodium Chloride 10 ml Q8HR IV 11/10/24 06:00 11/12/24 05:30 10 ML Acetaminophen/ Hydrocodone Bitart 1 tab Q4HP PRN PO 11/09/24 22:45 Ondansetron HCl 4 mg Q4HP PRN IV 11/09/24 22:45 Docusate Sodium 100 mg BIDPRN PRN PO 11/09/24 22:45 Acetaminophen 650 mg Q6HP PRN PO 11/09/24 22:45 Nitroglycerin 0.4 mg Q5MINP PRN SL 11/09/24 22:45 Morphine Sulfate 2 mg Q30M PRN IV 11/09/24 22:45 Levothyroxine Sodium 50 mcg QAM@0600 PO 11/10/24 06:00 11/12/24 05:17 50 MCG Famotidine 10 mg DAILY IV 11/10/24 10:00 11/12/24 10:46 10 MG Levalbuterol HCl 1.25 mg Q4H NEB 11/10/24 01:00 11/12/24 14:04 1.25 MG Vancomycin HCl 0 ml @ 0 mls/hr UD IV 11/10/24 10:45 Metoprolol Succinate 25 mg DAILY PO 11/11/24 10:00 11/12/24 10:42 25 MG Enoxaparin Sodium 60 mg DAILY SC 11/11/24 10:00 11/12/24 10:38 60 MG Insulin Glargine 15 units QAM SC 11/11/24 07:00 11/12/24 05:40 15 UNITS Azithromycin 250 ml @ 125 mls/hr DAILY IV 11/11/24 10:00 11/12/24 10:58 125 MLS/HR Furosemide 40 mg BIDD IV 11/11/24 18:00 11/12/24 05:20 40 MG Vancomycin HCl 100 ml @ 200 mls/hr Q24H IV 11/11/24 13:00 11/12/24 13:00 200 MLS/HR Piperacillin Sod/ Tazobactam Sod 100 ml @ 25 mls/hr Q8H IV 11/11/24 21:00 11/12/24 05:16 25 MLS/HR Amiodarone HCl 200 mg Q12HR PO 11/12/24 22:00 Examination Examination General Appearance: On 5 L through nasal cannula HEENT: EOMI Respiratory: Clear to auscultation, Normal air movement, bilateral crackles R>>L Cardiovascular: Regular rate, Normal S1, Normal S2 Abdominal: Normal bowel sounds Extremities: No cyanosis, No edema, Normal pulses, No tenderness/swelling Skin: No rashes, No breakdown Neuro: Normal speech and tone laboratory and microbiology Laboratory Tests 11/12/24 06:17 Test 11/12/24 06:17 Range/Units Serum Glucose 114 H 74-106 mg/dL Microbiology Date/Time Source Procedure Growth Status 11/10/24 13:00 Nose MRSA Screen - Final Complete 11/09/24 23:50 Blood Blood Culture - Preliminary NO GROWTH AFTER 48 HOURS OF INCUBATION. Resulted Labs and/or images reviewed: Labs reviewed by me, Image(s) reviewed by me Problem List/Assessment/Plan Problem List/Assessment/Plan Assessment/plan # acute hypoxic respiratory failure due to community-acquired pneumonia -currently on 2 L of oxygen through nasal cannula Nebulization with ipratropium and albuterol CT angio chest ordered , does not show PE. continue antibiotics # possible sepsis due to community-acquired pneumonia -IV antibiotics -MRSA screen -pancultures # community-acquired pneumonia, Gram-positive/Gram-negative -IV antibiotics Pancultures #EM likely hemodynamically mediated -IV fluids #? New onset AFib -currently on therapeutic Lovenox and metoprolol -amiodarone drip, switched to oral amiodarone #NSTEMI type 2 -likely due to above # history of coronary artery disease -no active chest complaints # hyperlipidemia -will resume home Meds # Hypertension -continue metoprolol # DM2 -sliding scale insulin -HbA1c #hypothyroidism -continue home Meds DVT prophylaxis -pt is on therapeutic Lovenox Code status discussed with the patient for >21min, full code Case discussion with Dr Merritt Plan discussed with: Patient, Other My Orders My Orders Orders - MORENO NEELY Procedure Category Date Status Time Piperacillin-Tazob PHA 11/11/24 In Process 3.375gm (Zosyn 3.375g 21:00 Date of Service: Nov 12, 2024 Billing Provider: KEYLA MERRITT MD Common Visit Codes: [id number] INP/OBS CARE(HIGH) MORENO NEELY RESIDENT Nov 12, 2024 15:28 KEYLA MERRITT MD Nov 12, 2024 15:42
[2024-11-12] MEDS: AMIODARONE HCL 200 MG TAB PO SCH (22:35)
[2024-11-13] VITALS (18 sets, daily range): BP systolic 102–137; BP diastolic 50–83; PULSE 77–137; RESP 16–20; TEMP 97.4–98.3; O2SAT 89–98
[2024-11-13 09:40] LABS: Potassium 4.3 mmol/L (3.5-5.1)
[2024-11-13 09:41] LABS: Anion Gap 8 (5-15); Calcium 9.9 mg/dL (8.7-10.4); Carbon Dioxide 31 mmol/L (20-31); Chloride 97 mmol/L (98-107); Sodium 136 mmol/L (136-145)
[2024-11-13 09:46] LABS: BUN/Creatinine Ratio 21.1 (10.0-20.0)
[2024-11-13 09:47] LABS: Magnesium 1.8 mg/dL (1.6-2.6)
[2024-11-13 10:21] LABS: Blood Urea Nitrogen 27 mg/dL (9-23); Glucose 226 mg/dL (74-106)
[2024-11-13] MEDS: AZITHROMYCIN 250 MG TAB PO SCH (10:23)
[2024-11-13 10:25] LABS: Basophils # (auto) 0 10 ^3/uL (0-0.2); Basophils % (auto) 0.1 % (0.0-2.0); Eosinophils # (auto) 0 10 ^3/uL (0-0.8); Eosinophils % (auto) 0.2 % (0.0-7.0); Hemoglobin 12.8 g/dL (12.2-16.2); Lymphocytes # (auto) 0.9 10 ^3/uL (0.4-5.4); Lymphocytes % (auto) 5.6 % (10.0-50.0); Mean Corpuscular Hemoglobin 29.2 pg (28.0-32.0); Mean Corpuscular Hgb Conc. 33.8 g/dL (32.0-36.0); Mean Corpuscular Volume 86.4 fL (80.0-100.0); Monocytes # (auto) 1.1 10 ^3/uL (0-1.3); Monocytes % (auto) 7.1 % (0.0-12.0); Neutrophils # (auto) 13.6 10 ^3/uL (1.6-8.6); Platelet Count (auto) 374 10^3/uL (140-450); Red Blood Cells 4.39 10^6/uL (4.0-5.20); Red Cell Distribution Width 16.1 % (11.8-14.3); White Blood Cell 15.6 10^3/uL (4.4-10.8)
--- NOTE | 2024-11-13 11:00 | DVHPN2 ---
Progress Note Date Seen: Nov 13, 2024 Medical Necessity Reason Pt with a Central, PICC or Fol: No Subjective Patient reports: Feels better Objective vital signs Vital Sign Date Time Temp Pulse Resp B/P (MAP) Pulse Ox O2 Delivery O2 Flow Rate FiO2 11/13/24 10:26 85 137/83 11/13/24 09:37 16 96 11/13/24 09:00 97.4 97.4 11/13/24 06:04 Nasal Cannula 3.0 11/13/24 06:04 32 Total Intake and Output 11/12/24 11/12/24 11/13/24 15:00 23:00 07:00 Intake Total 0 ml 983.335 ml 800 ml Balance 0 ml 983.335 ml 800 ml medications Current Medications Medications Dose Ordered Sig/Elke Route Start Time Stop Time Status Last Admin Dose Admin Aspirin 81 mg DAILY PO 11/10/24 10:00 11/13/24 10:23 81 MG Atorvastatin Calcium 20 mg HS PO 11/10/24 22:00 11/12/24 22:34 20 MG Ipratropium [place] 0.5 mg Q4HPRN PRN NEB 11/09/24 22:45 11/13/24 09:27 0.5 MG Diagnostic Test (Pha) 1 strip ACHS 11/10/24 07:00 11/13/24 06:36 1 STRIP Insulin Human Regular HS SC 11/10/24 22:00 11/12/24 22:39 3 UNITS Insulin Human Regular AC SC 11/10/24 07:00 11/11/24 11:55 6 UNITS Dextrose 50 ml UD PRN IV 11/09/24 22:45 Sodium Chloride 10 ml Q8HR IV 11/10/24 06:00 11/13/24 06:28 10 ML Acetaminophen/ Hydrocodone Bitart 1 tab Q4HP PRN PO 11/09/24 22:45 Ondansetron HCl 4 mg Q4HP PRN IV 11/09/24 22:45 Docusate Sodium 100 mg BIDPRN PRN PO 11/09/24 22:45 Acetaminophen 650 mg Q6HP PRN PO 11/09/24 22:45 Nitroglycerin 0.4 mg Q5MINP PRN SL 11/09/24 22:45 Morphine Sulfate 2 mg Q30M PRN IV 11/09/24 22:45 Levothyroxine Sodium 50 mcg QAM@0600 PO 11/10/24 06:00 11/13/24 05:50 50 MCG Famotidine 10 mg DAILY IV 11/10/24 10:00 11/13/24 10:27 10 MG Levalbuterol HCl 1.25 mg Q4H NEB 11/10/24 01:00 11/13/24 09:28 1.25 MG Vancomycin HCl 0 ml @ 0 mls/hr UD IV 11/10/24 10:45 Metoprolol Succinate 25 mg DAILY PO 11/11/24 10:00 11/13/24 10:26 25 MG Enoxaparin Sodium 60 mg DAILY SC 11/11/24 10:00 11/13/24 10:33 60 MG Insulin Glargine 15 units QAM SC 11/11/24 07:00 11/12/24 05:40 15 UNITS Furosemide 40 mg BIDD IV 11/11/24 18:00 11/13/24 06:30 40 MG Vancomycin HCl 100 ml @ 200 mls/hr Q24H IV 11/11/24 13:00 11/12/24 13:00 200 MLS/HR Piperacillin Sod/ Tazobactam Sod 100 ml @ 25 mls/hr Q8H IV 11/11/24 21:00 11/13/24 05:50 25 MLS/HR Amiodarone HCl 200 mg Q12HR PO 11/12/24 22:00 11/13/24 10:24 200 MG Azithromycin 500 mg DAILY PO 11/13/24 10:00 11/13/24 10:23 500 MG Examination: GENERAL:Normal, LUNGS:Abnormal, CVS:Abnormal laboratory and microbiology Laboratory Tests 11/13/24 09:08 Test 11/13/24 09:08 Range/Units Serum Glucose 226 H 74-106 mg/dL Microbiology Date/Time Source Procedure Growth Status 11/10/24 13:00 Nose MRSA Screen - Final Complete 11/09/24 23:50 Blood Blood Culture - Preliminary NO GROWTH AFTER 72 HOURS OF INCUBATION. Resulted Problem List/Assessment/Plan Problem List/Assessment/Plan Acute kidney injury CKD IIIa community acquired pneumonia DM II CAD A fib with RvR renal function continues to improve rec convert diuretics to po tomorrow Strict I&Os Kidney ultrasound reported within normal limit Cardiology consult no further renal recs at this time replace electrolytes PRN Plan discussed with: Patient JADA MAYNARD MD Nov 13, 2024 11:00
[2024-11-13] MEDS: MAGNESIUM OXIDE 400 MG TAB PO ONE (11:53)
[2024-11-13] MEDS ORDERED: DOXYCYCLINE 100 MG TAB/CAP PO ONE (14:00)
[2024-11-13] MEDS ORDERED: ACETYLCYSTEINE 10 %(100MG/ML) SOL 4ML NEB ONE (14:00)
--- NOTE | 2024-11-13 14:08 | DVHPNRES ---
Progress Note Date Seen: Nov 13, 2024 Resident Creating Document: MORENO NEELY RESIDENT Medical Necessity Reason Pt with a Central, PICC or Fol: No Subjective Review of Systems pt seen and examined at bedside, mentioning of improvement in the symptoms, currently on 3L oxygen Objective vital signs Vital Sign Date Time Temp Pulse Resp B/P (MAP) Pulse Ox O2 Delivery O2 Flow Rate FiO2 11/13/24 13:54 85 16 137/83 96 4.0 36 11/13/24 09:00 97.4 97.4 11/13/24 08:00 Nasal Cannula* Total Intake and Output 11/12/24 11/12/24 11/13/24 15:00 23:00 07:00 Intake Total 0 ml 983.335 ml 800 ml Balance 0 ml 983.335 ml 800 ml medications Current Medications Medications Dose Ordered Sig/Elke Route Start Time Stop Time Status Last Admin Dose Admin Aspirin 81 mg DAILY PO 11/10/24 10:00 11/13/24 10:23 81 MG Atorvastatin Calcium 20 mg HS PO 11/10/24 22:00 11/12/24 22:34 20 MG Ipratropium [place] 0.5 mg Q4HPRN PRN NEB 11/09/24 22:45 11/13/24 09:27 0.5 MG Diagnostic Test (Pha) 1 strip ACHS 11/10/24 07:00 11/13/24 11:58 1 STRIP Insulin Human Regular HS SC 11/10/24 22:00 11/12/24 22:39 3 UNITS Insulin Human Regular AC SC 11/10/24 07:00 11/13/24 11:57 2 UNITS Dextrose 50 ml UD PRN IV 11/09/24 22:45 Sodium Chloride 10 ml Q8HR IV 11/10/24 06:00 11/13/24 06:28 10 ML Acetaminophen/ Hydrocodone Bitart 1 tab Q4HP PRN PO 11/09/24 22:45 Ondansetron HCl 4 mg Q4HP PRN IV 11/09/24 22:45 Acetaminophen 650 mg Q6HP PRN PO 11/09/24 22:45 Morphine Sulfate 2 mg Q30M PRN IV 11/09/24 22:45 Levothyroxine Sodium 50 mcg QAM@0600 PO 11/10/24 06:00 11/13/24 05:50 50 MCG Levalbuterol HCl 1.25 mg Q4H NEB 11/10/24 01:00 11/13/24 09:28 1.25 MG Metoprolol Succinate 25 mg DAILY PO 11/11/24 10:00 11/13/24 10:26 25 MG Enoxaparin Sodium 60 mg DAILY SC 11/11/24 10:00 11/13/24 10:33 60 MG Insulin Glargine 15 units QAM SC 11/11/24 07:00 11/12/24 05:40 15 UNITS Furosemide 40 mg BIDD IV 11/11/24 18:00 11/13/24 06:30 40 MG Piperacillin Sod/ Tazobactam Sod 100 ml @ 25 mls/hr Q8H IV 11/11/24 21:00 11/13/24 05:50 25 MLS/HR Amiodarone HCl 200 mg Q12HR PO 11/12/24 22:00 11/13/24 10:24 200 MG Acetylcysteine 100 mg Q8HR NEB 11/13/24 14:00 UNV Doxycycline Monohydrate 100 mg Q12HR PO 11/13/24 22:00 UNV Examination Examination General Appearance: On 5 L through nasal cannula HEENT: EOMI Respiratory: Clear to auscultation, Normal air movement, right basilar crackles Cardiovascular: Regular rate, Normal S1, Normal S2 Abdominal: Normal bowel sounds Extremities: No cyanosis, No edema, Normal pulses, No tenderness/swelling Skin: No rashes, No breakdown Neuro: Normal speech and tone laboratory and microbiology Laboratory Tests 11/13/24 09:08 Test 11/13/24 09:08 Range/Units Serum Glucose 226 H 74-106 mg/dL Microbiology Date/Time Source Procedure Growth Status 11/10/24 13:00 Nose MRSA Screen - Final Complete 11/09/24 23:50 Blood Blood Culture - Preliminary NO GROWTH AFTER 72 HOURS OF INCUBATION. Resulted Labs and/or images reviewed: Labs reviewed by me, Image(s) reviewed by me Problem List/Assessment/Plan Problem List/Assessment/Plan Assessment/plan # acute hypoxic respiratory failure due to community-acquired pneumonia -currently on 3 L of oxygen through nasal cannula Nebulization with ipratropium and albuterol CT angio chest ordered , does not show PE. continue antibiotics switched to IV Lasix 20mg BID BNP and CXR in the am # possible sepsis due to community-acquired pneumonia -IV antibiotics -MRSA screen -panculture # community-acquired pneumonia, Gram-positive/Gram-negative -IV antibiotics sputum cultures in the AM, Mucomyst #ME likely hemodynamically mediated -IV fluids #? New onset AFib -currently on therapeutic Lovenox and metoprolol -amiodarone drip, switched to oral amiodarone #NSTEMI type 2 -likely due to above # history of coronary artery disease -no active chest complaints # hyperlipidemia -will resume home Meds # Hypertension -continue metoprolol # DM2 -sliding scale insulin -HbA1c #hypothyroidism -continue home Meds DVT prophylaxis -pt is on therapeutic Lovenox Code status discussed with the patient for >21min, full code Case discussion with Dr Merritt Plan discussed with: Patient, Other My Orders My Orders Orders - MORENO NEELY Procedure Category Date Status Time Respiratory Culture [place] 11/13/24 Logged W/ Gs 09:38 Sputum Induction RT 11/13/24 Logged 09:05 Chest Two Views XY 11/14/24 Logged Routine 04:00 Complete Blood Count LAB 11/14/24 Verified 04:00 Magnesium LAB 11/14/24 Verified 04:00 Acetylcysteine PHA 11/13/24 Logged Inhalation 10% 14:00 Acetylcysteine PHA 11/13/24 Logged Inhalation 10% 14:00 Doxycycline Tablet PHA 11/13/24 Logged (Vibramycin Tablet) 14:00 Doxycycline Tablet PHA 11/13/24 Logged (Vibramycin Tablet) 22:00 Furosemide Injection PHA 11/13/24 Transmitted (Lasix Injection) 18:00 Date of Service: Nov 13, 2024 Billing Provider: KEYLA MERRITT MD Common Visit Codes: [id number] INP/OBS CARE(HIGH) MORENO NEELY RESIDENT Nov 13, 2024 14:08 KEYLA MERRITT MD Nov 14, 2024 16:46
--- NOTE | 2024-11-13 14:49 | ECG ---
[facility] Test Date: 2024-11-12 Test Time: 10:48:58 Pat Name: CLAUS YU Department: Room: [facility] Gender: F [employer] Technician: ESVIN : 1940 Requested By: KATHY RODRIGUEZ Order Number: [id number] Reading MD: Alex Traylor Measurements Intervals [place] Rate: 80 P: 31 GA: 162 QRS: -34 QRSD: 87 T: 49 QT: 412 QTc: 476 Interpretive Statements Incomplete analysis due to missing data in precordial lead(s) Sinus rhythm Anterolateral infarct,old Missing lead(s): V3 Consider inferior infarct, old Electronically Signed On 11-13-2024 21:10:20 PST by Alex Traylor Please click the below link to view image of tracing.
[2024-11-13] MEDS: ACETYLCYSTEINE 10 %(100MG/ML) SOL 4ML NEB SCH (15:00)
[2024-11-13] MEDS: FUROSEMIDE 20 MG/2 ML VIAL IV SCH (17:31)
[2024-11-13] MEDS ORDERED: DOXYCYCLINE 100 MG TAB/CAP PO SCH (22:00)
[2024-11-13] MEDS: LEVALBUTEROL HCL 1.25 MG/3 ML NEB NEB SCH (22:16)
[2024-11-14] VITALS (20 sets, daily range): BP systolic 108–141; BP diastolic 52–70; PULSE 53–86; RESP 7–18; TEMP 97.9–98.5; O2SAT 2–98
--- NOTE | 2024-11-14 05:54 | DVH ---
CHEST RADIOGRAPH Indication: sob Technique: Frontal and lateral view of the chest was obtained Comparison: None FINDINGS: Lines and Tubes: None Lungs: Right lower lobe airspace disease. Pleura: No effusion. No pneumothorax. Cardiomediastinal contours: Unremarkable Bones: Unremarkable IMPRESSION: No significant interval change.
[2024-11-14 08:09] LABS: Hematocrit 35.6 % (36.0-46.0); Hemoglobin 11.8 g/dL (12.2-16.2); Mean Corpuscular Hemoglobin 28.7 pg (28.0-32.0); Mean Corpuscular Hgb Conc. 33.3 g/dL (32.0-36.0); Mean Corpuscular Volume 86.3 fL (80.0-100.0); Platelet Count (auto) 397 10^3/uL (140-450); Red Blood Cells 4.12 10^6/uL (4.0-5.20); Red Cell Distribution Width 16.2 % (11.8-14.3); White Blood Cell 15.7 10^3/uL (4.4-10.8)
[2024-11-14 08:15] LABS: Anion Gap 8 (5-15); Sodium 136 mmol/L (136-145)
[2024-11-14 08:17] LABS: Calcium 9.8 mg/dL (8.7-10.4)
[2024-11-14 08:20] LABS: Carbon Dioxide 31 mmol/L (20-31); Chloride 97 mmol/L (98-107); Potassium 3.5 mmol/L (3.5-5.1)
[2024-11-14 08:21] LABS: Blood Urea Nitrogen 21 mg/dL (9-23)
[2024-11-14 08:22] LABS: Magnesium 1.9 mg/dL (1.6-2.6)
[2024-11-14 08:23] LABS: BUN/Creatinine Ratio 18.4 (10.0-20.0); Glucose 155 mg/dL (74-106)
[2024-11-14 08:32] LABS: Basophils % (manual) 0 (0.0-2.0); Blast Cells 0; Eosinophils % (manual) 0 (0-7); Myelocytes % 0; Promyelocytes % 0; Reactive Lymphocytes 0
[2024-11-14] MEDS: AZITHROMYCIN 250 MG TAB PO SCH (08:48)
--- NOTE | 2024-11-14 09:34 | DVHPN2 ---
Progress Note Date Seen: Nov 14, 2024 Medical Necessity Reason Pt with a Central, PICC or Fol: No Subjective Patient reports: Feels better Objective vital signs Vital Sign Date Time Temp Pulse Resp B/P (MAP) Pulse Ox O2 Delivery O2 Flow Rate FiO2 11/14/24 08:48 60 126/56 11/14/24 08:27 97.9 17 95 97.9 11/14/24 06:17 Nasal Cannula* 4 36 Total Intake and Output 11/13/24 11/13/24 11/14/24 15:00 23:00 07:00 Intake Total 100 ml 1250 ml 840 ml Balance 100 ml 1250 ml 840 ml medications Current Medications Medications Dose Ordered Sig/Elke Route Start Time Stop Time Status Last Admin Dose Admin Aspirin 81 mg DAILY PO 11/10/24 10:00 11/14/24 08:49 81 MG Atorvastatin Calcium 20 mg HS PO 11/10/24 22:00 11/13/24 22:14 20 MG Ipratropium [place] 0.5 mg Q4HPRN PRN NEB 11/09/24 22:45 11/14/24 06:16 0.5 MG Diagnostic Test (Pha) 1 strip ACHS 11/10/24 07:00 11/14/24 06:32 1 STRIP Insulin Human Regular HS SC 11/10/24 22:00 11/13/24 22:20 4 UNITS Insulin Human Regular AC SC 11/10/24 07:00 11/14/24 06:32 2 UNITS Dextrose 50 ml UD PRN IV 11/09/24 22:45 Sodium Chloride 10 ml Q8HR IV 11/10/24 06:00 11/14/24 06:25 10 ML Acetaminophen/ Hydrocodone Bitart 1 tab Q4HP PRN PO 11/09/24 22:45 Ondansetron HCl 4 mg Q4HP PRN IV 11/09/24 22:45 Acetaminophen 650 mg Q6HP PRN PO 11/09/24 22:45 Morphine Sulfate 2 mg Q30M PRN IV 11/09/24 22:45 Levothyroxine Sodium 50 mcg QAM@0600 PO 11/10/24 06:00 11/14/24 06:25 50 MCG Metoprolol Succinate 25 mg DAILY PO 11/11/24 10:00 11/14/24 08:48 25 MG Enoxaparin Sodium 60 mg DAILY SC 11/11/24 10:00 11/14/24 08:49 60 MG Insulin Glargine 15 units QAM SC 11/11/24 07:00 11/14/24 06:31 15 UNITS Piperacillin Sod/ Tazobactam Sod 100 ml @ 25 mls/hr Q8H IV 11/11/24 21:00 11/14/24 04:31 25 MLS/HR Amiodarone HCl 200 mg Q12HR PO 11/12/24 22:00 11/14/24 08:49 200 MG Acetylcysteine 100 mg Q8HR [facility] 11/13/24 14:00 11/14/24 06:17 100 MG Furosemide 20 mg BIDD IV 11/13/24 18:00 11/14/24 06:26 20 MG Levalbuterol HCl 1.25 mg Q4HR [facility] 11/13/24 22:00 11/14/24 06:16 1.25 MG Azithromycin 500 mg DAILY PO 11/14/24 10:00 11/14/24 08:48 500 MG Examination: GENERAL:Normal, NECK:Normal, CVS:Normal laboratory and microbiology Laboratory Tests 11/14/24 07:37 Test 11/14/24 07:37 Range/Units Serum Glucose 155 H 74-106 mg/dL Microbiology Date/Time Source Procedure Growth Status 11/10/24 13:00 Nose MRSA Screen - Final Complete 11/09/24 23:50 Blood Blood Culture - Preliminary NO GROWTH AFTER 72 HOURS OF INCUBATION. Resulted Problem List/Assessment/Plan Problem List/Assessment/Plan Acute kidney injury CKD IIIa community acquired pneumonia DM II CAD A fib with RvR renal function continues to improve can switch to po lasix at dc Strict I&Os Kidney ultrasound reported within normal limit Cardiology consult no further renal recs at this time replace electrolytes PRN Plan discussed with: Patient JADA MAYNARD MD Nov 14, 2024 09:34
[2024-11-14 11:24] LABS: Band Neutrophils % (manual) 6; Lymphocytes % (manual) 11 (10.0-50.0); Metamyelocytes % 2; Monocytes % (manual) 6 (0-12); Platelet Estimate Adequate
[2024-11-14] MEDS: POTASSIUM EFFERVESENT TAB 25 MEQ PO ONE (13:05)
--- NOTE | 2024-11-14 17:12 | DVH ---
Bilateral Upper Extremity Venous Duplex Clinical History: bilat forearm swelling, redness and pain s/p IV infiltration Comparison: US BILAT LOWER DVT on DOS: 11/11/24 Technique: Duplex Doppler evaluation of the venous systems of the right and left lower neck and upper extremities including color Doppler and spectral/pulsed waveform analysis was performed. Findings: RIGHT SIDE: The internal jugular vein demonstrates appropriate compressibility and waveform variability. The subclavian vein is patent on color Doppler evaluation without intraluminal thrombus and demonstra jackie waveform variability. The visualized portion of the brachiocephalic vein is patent on color Doppler evaluation without intr aluminal thrombus and demonstrates waveform variability. The axillary vein demonstrates appropriate compressibility and waveform variability. The brachial veins demonstrate appropriate compressibility and patency on Doppler evaluation. The basilic vein demonstrates appropriate compressibility and patency on Doppler evaluation. The cephalic vein demonstrates incomplete compressibility and absence of flow on color doppler. LEFT SIDE: The internal jugular vein demonstrates appropriate compressibility and waveform variability. The subclavian vein is patent on color Doppler evaluation without intraluminal thrombus and demonstra jackie waveform variability. The visualized portion of the brachiocephalic vein is patent on color Doppler evaluation without intr aluminal thrombus and demonstrates waveform variability. The axillary vein demonstrates appropriate compressibility and waveform variability. The brachial veins demonstrate appropriate compressibility and patency on Doppler evaluation. The basilic vein demonstrates appropriate compressibility and patency on Doppler evaluation. Rouleaux flow. The cephalic vein demonstrates appropriate compressibility and patency on Doppler evaluation. Impression: 1. Occlusive thrombus within the right cephalic vein, which is part of the superficial venous system. No deep venous thrombus identified in the right or left upper extremity vessels evaluated above. 2. If clinical concern/symptoms persist or worsen, short-interval follow-up study is suggested. HS:Y
--- NOTE | 2024-11-14 21:24 | DVHPNRES ---
Progress Note Date Seen: Nov 14, 2024 Resident Creating Document: MORENO NEELY RESIDENT Medical Necessity Reason Pt with a Central, PICC or Fol: No Subjective Review of Systems pt seen and examined at bedside, mentioning of improvement in the symptoms Later in the hospital, she mentioned Redness, swelling and warmth to touch noted in bilateral lower arms. Objective vital signs Vital Sign Date Time Temp Pulse Resp B/P (MAP) Pulse Ox O2 Delivery O2 Flow Rate FiO2 11/14/24 19:11 65 16 98 11/14/24 19:00 Nasal Cannula* 2 11/14/24 17:59 120/70 11/14/24 17:00 98.4 98.4 Total Intake and Output 11/13/24 11/13/24 11/14/24 15:00 23:00 07:00 Intake Total 100 ml 1250 ml 840 ml Balance 100 ml 1250 ml 840 ml medications Current Medications Medications Dose Ordered Sig/Elke Route Start Time Stop Time Status Last Admin Dose Admin Aspirin 81 mg DAILY PO 11/10/24 10:00 11/14/24 08:49 81 MG Atorvastatin Calcium 20 mg HS PO 11/10/24 22:00 11/13/24 22:14 20 MG Ipratropium [place] 0.5 mg Q4HPRN PRN NEB 11/09/24 22:45 11/14/24 19:01 0.5 MG Diagnostic Test (Pha) 1 strip ACHS 11/10/24 07:00 11/14/24 17:13 1 STRIP Insulin Human Regular HS SC 11/10/24 22:00 11/13/24 22:20 4 UNITS Insulin Human Regular AC SC 11/10/24 07:00 11/14/24 11:27 3 UNITS Dextrose 50 ml UD PRN IV 11/09/24 22:45 Sodium Chloride 10 ml Q8HR IV 11/10/24 06:00 11/14/24 14:00 10 ML Acetaminophen/ Hydrocodone Bitart 1 tab Q4HP PRN PO 11/09/24 22:45 Ondansetron HCl 4 mg Q4HP PRN IV 11/09/24 22:45 Acetaminophen 650 mg Q6HP PRN PO 11/09/24 22:45 Morphine Sulfate 2 mg Q30M PRN IV 11/09/24 22:45 Levothyroxine Sodium 50 mcg QAM@0600 PO 11/10/24 06:00 11/14/24 06:25 50 MCG Metoprolol Succinate 25 mg DAILY PO 11/11/24 10:00 11/14/24 08:48 25 MG Enoxaparin Sodium 60 mg DAILY SC 11/11/24 10:00 11/14/24 08:49 60 MG Insulin Glargine 15 units QAM SC 11/11/24 07:00 11/14/24 06:31 15 UNITS Piperacillin Sod/ Tazobactam Sod 100 ml @ 25 mls/hr Q8H IV 11/11/24 21:00 11/14/24 21:05 25 MLS/HR Amiodarone HCl 200 mg Q12HR PO 11/12/24 22:00 11/14/24 08:49 200 MG Acetylcysteine 100 mg Q8HR NEB 11/13/24 14:00 11/14/24 14:15 100 MG Furosemide 20 mg BIDD IV 11/13/24 18:00 11/14/24 17:59 20 MG Levalbuterol HCl 1.25 mg Q4HR NEB 11/13/24 22:00 11/14/24 19:01 1.25 MG Azithromycin 500 mg DAILY PO 11/14/24 10:00 11/14/24 08:48 500 MG Examination Examination General Appearance: On 5 L through nasal cannula Respiratory: Clear to auscultation, Normal air movement, right basilar crackles Cardiovascular: Regular rate, Normal S1, Normal S2 Abdominal: Normal bowel sounds Extremities: No cyanosis, No edema, Normal pulses, No tenderness/swelling Skin: No rashes, No breakdown Neuro: Normal speech and tone laboratory and microbiology Laboratory Tests 11/14/24 07:37 Test 11/14/24 07:37 Range/Units Serum Glucose 155 H 74-106 mg/dL Microbiology Date/Time Source Procedure Growth Status 11/13/24 18:15 Sputum Gram Stain - Final Resulted 11/13/24 18:15 Sputum Respiratory Culture - Preliminary Resulted 11/10/24 13:00 Nose MRSA Screen - Final Complete 11/09/24 23:50 Blood Blood Culture - Preliminary NO GROWTH AFTER 72 HOURS OF INCUBATION. Resulted Labs and/or images reviewed: Labs reviewed by me, Image(s) reviewed by me Problem List/Assessment/Plan Problem List/Assessment/Plan Assessment/plan # acute hypoxic respiratory failure due to community-acquired pneumonia -currently on 2 L of oxygen through nasal cannula Nebulization with ipratropium and albuterol CT angio chest ordered , does not show PE. continue antibiotics switched to IV Lasix 20mg BID BNP and CXR in the am # possible sepsis due to community-acquired pneumonia -IV antibiotics -MRSA screen -panculture # community-acquired pneumonia, Gram-positive/Gram-negative -IV antibiotics sputum cultures in the AM, Mucomyst #EM likely hemodynamically mediated -IV fluids #? New onset AFib -currently on therapeutic Lovenox and metoprolol -amiodarone drip, switched to oral amiodarone #Superficial venous thrombosis -USG shows Occlusive thrombus within the right cephalic vein, which is part of the superficial venous system. No deep venous thrombus identified in the right or left upper extremity vessels evaluated above. -warm compresses -pt already on therapeutic lovenox #NSTEMI type 2 -likely due to above # history of coronary artery disease -no active chest complaints # hyperlipidemia -will resume home Meds # Hypertension -continue metoprolol # DM2 -sliding scale insulin -HbA1c #hypothyroidism -continue home Meds DVT prophylaxis -pt is on therapeutic Lovenox Code status discussed with the patient for >21min, full code Case discussion with Dr Merritt Plan discussed with: Patient, Other My Orders My Orders Orders - MORENO NEELY Procedure Category Date Status Time Azithromycin Tablet PHA 11/14/24 In Process (Zithromax Tablet) 10:00 Date of Service: Nov 14, 2024 Billing Provider: KEYLA MERRITT MD Common Visit Codes: [id number] INP/OBS CARE(HIGH) MORENO NEELY RESIDENT Nov 14, 2024 21:24 KEYLA MERRITT MD Nov 18, 2024 19:49
[2024-11-15] VITALS (17 sets, daily range): BP systolic 118–136; BP diastolic 45–56; PULSE 70–105; RESP 16–21; TEMP 97.5–98.4; O2SAT 90–99
[2024-11-15 05:57] LABS: Hemoglobin 11.4 g/dL (12.2-16.2); Mean Corpuscular Hgb Conc. 33.4 g/dL (32.0-36.0); Mean Corpuscular Volume 86.9 fL (80.0-100.0); Platelet Count (auto) 416 10^3/uL (140-450); Red Blood Cells 3.91 10^6/uL (4.0-5.20); White Blood Cell 14.9 10^3/uL (4.4-10.8)
[2024-11-15 06:09] LABS: Calcium 9.7 mg/dL (8.7-10.4); Chloride 99 mmol/L (98-107); Potassium 3.7 mmol/L (3.5-5.1)
[2024-11-15 06:10] LABS: Anion Gap 8 (5-15); Carbon Dioxide 28 mmol/L (20-31)
[2024-11-15 06:12] LABS: Basophils % (manual) 0 (0.0-2.0); Blast Cells 0; Metamyelocytes % 0; Myelocytes % 0; Promyelocytes % 0; Reactive Lymphocytes 0
[2024-11-15 06:15] LABS: BUN/Creatinine Ratio 16.3 (10.0-20.0); Blood Urea Nitrogen 17 mg/dL (9-23)
[2024-11-15 06:16] LABS: Magnesium 2.2 mg/dL (1.6-2.6)
[2024-11-15 06:18] LABS: Glucose 110 mg/dL (74-106); Sodium 135 mmol/L (136-145)
[2024-11-15 06:44] LABS: Band Neutrophils % (manual) 2; Eosinophils % (manual) 2 (0-7); Lymphocytes % (manual) 9 (10.0-50.0); Monocytes % (manual) 8 (0-12); Platelet Estimate Adequate
[2024-11-15 14:21] LABS: Base Excess 7.3 mmol/L (-2.0-3.0)
--- NOTE | 2024-11-15 18:12 | DVHPNRES ---
Progress Note Date Seen: Nov 15, 2024 Resident Creating Document: MORENO NEELY RESIDENT Medical Necessity Reason Pt with a Central, PICC or Fol: No Subjective Review of Systems pt seen and examined at bedside, mentioning of improvement in the symptoms currently on 2L O2 through nasal canula geriatric social worker consulted to arrange home oxygen Objective vital signs Vital Sign Date Time Temp Pulse Resp B/P (MAP) Pulse Ox O2 Delivery O2 Flow Rate FiO2 11/15/24 17:56 131/56 11/15/24 17:02 97.5 70 16 95 97.5 11/15/24 14:11 Nasal Cannula* 2 28 Total Intake and Output 11/14/24 11/14/24 11/15/24 15:00 23:00 07:00 Intake Total 100 ml 1000 ml 1000 ml Balance 100 ml 1000 ml 1000 ml medications Current Medications Medications Dose Ordered Sig/Elke Route Start Time Stop Time Status Last Admin Dose Admin Aspirin 81 mg DAILY PO 11/10/24 10:00 11/15/24 10:04 81 MG Atorvastatin Calcium 20 mg HS PO 11/10/24 22:00 11/14/24 22:03 20 MG Ipratropium [place] 0.5 mg Q4HPRN PRN NEB 11/09/24 22:45 11/15/24 06:35 0.5 MG Diagnostic Test (Pha) 1 strip ACHS 11/10/24 07:00 11/15/24 17:26 1 STRIP Insulin Human Regular HS SC 11/10/24 22:00 11/14/24 22:07 4 UNITS Insulin Human Regular AC SC 11/10/24 07:00 11/15/24 06:41 2 UNITS Dextrose 50 ml UD PRN IV 11/09/24 22:45 Sodium Chloride 10 ml Q8HR IV 11/10/24 06:00 11/15/24 13:17 10 ML Acetaminophen/ Hydrocodone Bitart 1 tab Q4HP PRN PO 11/09/24 22:45 Ondansetron HCl 4 mg Q4HP PRN IV 11/09/24 22:45 Acetaminophen 650 mg Q6HP PRN PO 11/09/24 22:45 Morphine Sulfate 2 mg Q30M PRN IV 11/09/24 22:45 Levothyroxine Sodium 50 mcg QAM@0600 PO 11/10/24 06:00 11/15/24 06:07 50 MCG Metoprolol Succinate 25 mg DAILY PO 11/11/24 10:00 11/15/24 10:04 25 MG Enoxaparin Sodium 60 mg DAILY SC 11/11/24 10:00 11/15/24 10:05 60 MG Insulin Glargine 15 units QAM SC 11/11/24 07:00 11/15/24 06:42 15 UNITS Piperacillin Sod/ Tazobactam Sod 100 ml @ 25 mls/hr Q8H IV 11/11/24 21:00 11/15/24 13:17 25 MLS/HR Amiodarone HCl 200 mg Q12HR PO 11/12/24 22:00 11/15/24 10:05 200 MG Acetylcysteine 100 mg Q8HR NEB 11/13/24 14:00 11/15/24 14:11 100 MG Furosemide 20 mg BIDD IV 11/13/24 18:00 11/15/24 17:56 20 MG Levalbuterol HCl 1.25 mg Q4HR NEB 11/13/24 22:00 11/15/24 14:11 1.25 MG Azithromycin 500 mg DAILY PO 11/14/24 10:00 11/15/24 10:03 500 MG Examination Examination General Appearance: On 5 L through nasal cannula Respiratory: Clear to auscultation, Normal air movement, right basilar crackles Cardiovascular: Regular rate, Normal S1, Normal S2 Abdominal: Normal bowel sounds Extremities: No cyanosis, No edema, Normal pulses, No tenderness/swelling Skin: No rashes, No breakdown Neuro: Normal speech and tone laboratory and microbiology Laboratory Tests 11/15/24 04:51 Test 11/15/24 04:51 Range/Units Serum Glucose 110 H 74-106 mg/dL Microbiology Date/Time Source Procedure Growth Status 11/13/24 18:15 Sputum Gram Stain - Final Resulted 11/13/24 18:15 Sputum Respiratory Culture - Preliminary Resulted 11/10/24 13:00 Nose MRSA Screen - Final Complete 11/09/24 23:50 Blood Blood Culture - Final NO GROWTH AFTER 5 DAYS OF INCUBATION. Complete Labs and/or images reviewed: Labs reviewed by me, Image(s) reviewed by me Problem List/Assessment/Plan Problem List/Assessment/Plan Assessment/plan # acute hypoxic respiratory failure due to community-acquired pneumonia -currently on 2 L of oxygen through nasal cannula Nebulization with ipratropium and albuterol CT angio chest ordered , does not show PE. continue antibiotics switched to IV Lasix 20mg BID # possible sepsis due to community-acquired pneumonia -IV antibiotics -MRSA screen -panculture # community-acquired pneumonia, gram negative -IV antibiotics sputum cultures in the AM, Mucomyst #EM likely hemodynamically mediated -IV fluids # New onset AFib -currently on therapeutic Lovenox and metoprolol -amiodarone drip, switched to oral amiodarone #Superficial venous thrombosis -USG shows Occlusive thrombus within the right cephalic vein, which is part of the superficial venous system. No deep venous thrombus identified in the right or left upper extremity vessels evaluated above. -warm compresses -pt already on therapeutic lovenox #NSTEMI type 2 -likely due to above # history of coronary artery disease -no active chest complaints # hyperlipidemia -will resume home Meds # Hypertension -continue metoprolol # DM2 -sliding scale insulin -HbA1c #hypothyroidism -continue home Meds DVT prophylaxis -pt is on therapeutic Lovenox Code status discussed with the patient for 20 min, full code human services care specialist consulted to arrange home o2 Case discussion with Dr Marcelo Plan discussed with: Patient, Other My Orders My Orders Orders - MORENO NEELY RESIDENT Procedure Category Date Status Time Warm Compresses ORDERS 11/14/24 Transmitted 21:24 Abg W/ Co-Ox RT 11/15/24 Logged 13:36 Pt Request For Service PT 11/15/24 Logged 13:37 * Senior Production Supervisor CONS 11/15/24 Transmitted Consult 17:15 Addendum Addendum Addendum I was physically present for the saavedra portions of the service provided to patient by THE RESIDENT. I have reviewed the documentation, discussed the case with resident and agree with the resident's documentation except as noted. Also the patient's clinical case was discussed with the patient's nurse. This medical document was created using an electronic medical record system with computerized dictation system. Although this document has been carefully reviewed, there might still be some phonetic and typographical errors. These areas are purely typographical due to imperfections of the software programs, and do not reflect any compromise in the patient's medical care. Late signature. Date of Service: Nov 15, 2024 Billing Provider: ELVIS MARCELO MD Common Visit Codes: [id number] INP/OBS CARE(HIGH) Secondary Visit Codes: [id number] CARE PLAN 30 MINUTES (20 minutes) MORENO NEELY Nov 15, 2024 18:12 ELVIS MARCELO MD Nov 16, 2024 07:27
[2024-11-16] VITALS (20 sets, daily range): BP systolic 120–146; BP diastolic 45–62; PULSE 63–91; RESP 16–21; TEMP 97.4–98.4; O2SAT 64–100
[2024-11-16 06:01] LABS: Basophils # (auto) 0.1 10 ^3/uL (0-0.2); Eosinophils # (auto) 0.5 10 ^3/uL (0-0.8); Eosinophils % (auto) 3.2 % (0.0-7.0); Lymphocytes # (auto) 1.7 10 ^3/uL (0.4-5.4); Monocytes # (auto) 0.9 10 ^3/uL (0-1.3); Potassium 3.9 mmol/L (3.5-5.1)
[2024-11-16 06:02] LABS: Anion Gap 7 (5-15); Calcium 9.7 mg/dL (8.7-10.4); Carbon Dioxide 31 mmol/L (20-31)
[2024-11-16 06:04] LABS: Basophils % (auto) 0.8 % (0.0-2.0); Hematocrit 33.8 % (36.0-46.0); Hemoglobin 11.3 g/dL (12.2-16.2); Lymphocytes % (auto) 10.5 % (10.0-50.0); Mean Corpuscular Hemoglobin 28.6 pg (28.0-32.0); Mean Corpuscular Hgb Conc. 33.3 g/dL (32.0-36.0); Mean Corpuscular Volume 85.9 fL (80.0-100.0); Monocytes % (auto) 5.2 % (0.0-12.0); Neutrophils # (auto) 13.3 10 ^3/uL (1.6-8.6); Neutrophils % (auto) 80.3 % (37.0-80.0); Nucleated Red Blood Cells % 0.4 %; Platelet Count (auto) 513 10^3/uL (140-450); Red Blood Cells 3.93 10^6/uL (4.0-5.20); Red Cell Distribution Width 15.8 % (11.8-14.3); White Blood Cell 16.5 10^3/uL (4.4-10.8)
[2024-11-16 06:08] LABS: Blood Urea Nitrogen 22 mg/dL (9-23); Magnesium 2.1 mg/dL (1.6-2.6)
[2024-11-16 06:10] LABS: Chloride 98 mmol/L (98-107); Glucose 129 mg/dL (74-106); Sodium 136 mmol/L (136-145)
[2024-11-16 06:55] LABS: Giant Platelets Few; Platelet Estimate Increased
--- NOTE | 2024-11-16 12:41 | DVH ---
CHEST RADIOGRAPH Indication: sob Technique: Single frontal view of the chest was obtained COMPARISON: XY CHEST PORTABLE on DOS: 11/11/24, XY CHEST PORTABLE on DOS: 11/09/24, XY CHEST XRAY 1 V IEW on DOS: 07/17/24, XY CHEST PORTABLE on DOS: 04/06/23 FINDINGS: Lines and Tubes: None Lungs: Right basilar infiltrate and atelectasis, minimally improved since the previous study. Please note that the film is mismarked and the right marker should say left marker. Pleura: No effusion. No pneumothorax. Cardiomediastinal contours: Unremarkable Bones: Unremarkable IMPRESSION: 1. Minimal improvement in the right lower lobe infiltrate when compared to the prior study 2. Stable heart size
[2024-11-16] MEDS: levoFLOXacin 750MG 150 ML IV ONE (17:30)
--- NOTE | 2024-11-16 20:11 | DVHPNRES ---
Progress Note Date Seen: Nov 16, 2024 Resident Creating Document: MORENO NEELY RESIDENT Medical Necessity Reason Pt with a Central, PICC or Fol: No Subjective Review of Systems pt seen and examined at bedside mentions of improvement in the symptoms currently on 2 L/min oxygen through nasal canula. Objective vital signs Vital Sign Date Time Temp Pulse Resp B/P (MAP) Pulse Ox O2 Delivery O2 Flow Rate FiO2 11/16/24 16:58 98.4 68 17 144/54 (84) 93 98.4 11/16/24 14:00 Nasal Cannula 2.0 11/16/24 14:00 28 Total Intake and Output 11/15/24 11/15/24 11/16/24 15:00 23:00 07:00 Intake Total 100 ml 940 ml 250 ml Output Total 900 ml Balance 100 ml 40 ml 250 ml medications Current Medications Medications Dose Ordered Sig/Elke Route Start Time Stop Time Status Last Admin Dose Admin Aspirin 81 mg DAILY PO 11/10/24 10:00 11/16/24 10:14 81 MG Atorvastatin Calcium 20 mg HS PO 11/10/24 22:00 11/15/24 21:25 20 MG Ipratropium [place] 0.5 mg Q4HPRN PRN NEB 11/09/24 22:45 11/15/24 06:35 0.5 MG Diagnostic Test (Pha) 1 strip ACHS 11/10/24 07:00 11/16/24 17:30 1 STRIP Insulin Human Regular HS SC 11/10/24 22:00 11/15/24 21:18 2 UNITS Insulin Human Regular AC SC 11/10/24 07:00 11/16/24 10:58 2 UNITS Dextrose 50 ml UD PRN IV 11/09/24 22:45 Sodium Chloride 10 ml Q8HR IV 11/10/24 06:00 11/16/24 13:36 10 ML Acetaminophen/ Hydrocodone Bitart 1 tab Q4HP PRN PO 11/09/24 22:45 Ondansetron HCl 4 mg Q4HP PRN IV 11/09/24 22:45 Acetaminophen 650 mg Q6HP PRN PO 11/09/24 22:45 Morphine Sulfate 2 mg Q30M PRN IV 11/09/24 22:45 Levothyroxine Sodium 50 mcg QAM@0600 PO 11/10/24 06:00 11/16/24 05:25 50 MCG Metoprolol Succinate 25 mg DAILY PO 11/11/24 10:00 11/16/24 10:14 25 MG Enoxaparin Sodium 60 mg DAILY SC 11/11/24 10:00 11/16/24 10:13 60 MG Insulin Glargine 15 units QAM SC 11/11/24 07:00 11/16/24 06:29 15 UNITS Amiodarone HCl 200 mg Q12HR PO 11/12/24 22:00 11/16/24 10:13 200 MG Acetylcysteine 100 mg Q8HR NEB 11/13/24 14:00 11/16/24 13:59 100 MG Levalbuterol HCl 1.25 mg Q4HR NEB 11/13/24 22:00 11/16/24 13:59 1.25 MG Levofloxacin/ Dextrose 150 ml @ 100 mls/hr Q48H IV 11/18/24 10:00 Examination Examination General Appearance: On 5 L through nasal cannula Respiratory: Clear to auscultation, Normal air movement, right basilar crackles Cardiovascular: Regular rate, Normal S1, Normal S2 Abdominal: Normal bowel sounds Extremities: No cyanosis, No edema, Normal pulses, No tenderness/swelling Skin: No rashes, No breakdown Neuro: Normal speech and tone laboratory and microbiology Laboratory Tests 11/16/24 04:54 Test 11/16/24 04:54 Range/Units Serum Glucose 129 H 74-106 mg/dL Microbiology Date/Time Source Procedure Growth Status 11/13/24 18:15 Sputum Gram Stain - Final Complete 11/13/24 18:15 Respiratory Culture - Final Citrobacter amalonaticus Complete 11/10/24 13:00 Nose MRSA Screen - Final Complete 11/09/24 23:50 Blood Blood Culture - Final NO GROWTH AFTER 5 DAYS OF INCUBATION. Complete Labs and/or images reviewed: Labs reviewed by me, Image(s) reviewed by me Problem List/Assessment/Plan Problem List/Assessment/Plan Assessment/plan # acute hypoxic respiratory failure due to community-acquired pneumonia -currently on 2 L of oxygen through nasal cannula Nebulization with ipratropium and albuterol CT angio chest ordered , does not show PE. continue antibiotics switched to IV Lasix 20mg BID # possible sepsis due to community-acquired pneumonia -IV antibiotics -MRSA screen -panculture -sputum culture showed Citrobacter amalonaticus -switched to levofloxacin # community-acquired pneumonia, gram negative -IV antibiotics sputum cultures in the AM, Mucomyst #EM likely hemodynamically mediated -IV fluids # New onset AFib -currently on therapeutic Lovenox and metoprolol -amiodarone drip, switched to oral amiodarone #Superficial venous thrombosis -USG shows Occlusive thrombus within the right cephalic vein, which is part of the superficial venous system. No deep venous thrombus identified in the right or left upper extremity vessels evaluated above. -warm compresses -pt already on therapeutic lovenox #NSTEMI type 2 -likely due to above # history of coronary artery disease -no active chest complaints # hyperlipidemia -will resume home Meds # Hypertension -continue metoprolol # DM2 -sliding scale insulin -HbA1c #hypothyroidism -continue home Meds DVT prophylaxis -pt is on therapeutic Lovenox professional services consultant consulted to arrange home o2 Case discussion with Dr Marcelo Plan discussed with: Patient, Other My Orders My Orders Orders - MORENO NEELY RESIDENT Procedure Category Date Status Time Chest Xray 1 View XY 11/16/24 Resulted 09:50 Levofloxacin 750mg PHA 11/18/24 In Process (Levaquin) 10:00 Addendum Addendum Addendum I was physically present for the saavedra portions of the service provided to patient by THE RESIDENT. I have reviewed the documentation, discussed the case with resident and agree with the resident's documentation except as noted. Also the patient's clinical case was discussed with the patient's nurse. This medical document was created using an electronic medical record system with computerized dictation system. Although this document has been carefully reviewed, there might still be some phonetic and typographical errors. These areas are purely typographical due to imperfections of the software programs, and do not reflect any compromise in the patient's medical care. Late signature. Date of Service: Nov 16, 2024 Billing Provider: ELVIS MARCELO MD Common Visit Codes: [id number] INP/OBS CARE(HIGH) MORENO NEELY RESIDENT Nov 16, 2024 20:11 ELVIS MARCELO MD Nov 17, 2024 16:36
[2024-11-17] VITALS (16 sets, daily range): BP systolic 119–147; BP diastolic 46–107; PULSE 60–72; RESP 15–18; TEMP 98.1–98.3; O2SAT 94–100
[2024-11-17 05:46] LABS: Hematocrit 35.6 % (36.0-46.0); Hemoglobin 12.1 g/dL (12.2-16.2); Mean Corpuscular Hemoglobin 29.2 pg (28.0-32.0); Mean Corpuscular Hgb Conc. 33.9 g/dL (32.0-36.0); Mean Corpuscular Volume 86.2 fL (80.0-100.0); Platelet Count (auto) 559 10^3/uL (140-450); Red Blood Cells 4.13 10^6/uL (4.0-5.20); Red Cell Distribution Width 16.3 % (11.8-14.3); White Blood Cell 11.2 10^3/uL (4.4-10.8)
[2024-11-17 05:57] LABS: Basophils % (manual) 0 (0.0-2.0); Blast Cells 0; Metamyelocytes % 0; Myelocytes % 0; Promyelocytes % 0; Reactive Lymphocytes 0
[2024-11-17 05:59] LABS: Anion Gap 6 (5-15); Chloride 99 mmol/L (98-107); Potassium 3.9 mmol/L (3.5-5.1); Sodium 136 mmol/L (136-145)
[2024-11-17 06:00] LABS: Calcium 10.1 mg/dL (8.7-10.4)
[2024-11-17 06:05] LABS: BUN/Creatinine Ratio 16.3 (10.0-20.0); Blood Urea Nitrogen 20 mg/dL (9-23); Glucose 97 mg/dL (74-106)
[2024-11-17 06:06] LABS: Magnesium 2.3 mg/dL (1.6-2.6)
[2024-11-17 06:23] LABS: Carbon Dioxide 31 mmol/L (20-31)
[2024-11-17 07:28] LABS: Band Neutrophils % (manual) 7; Eosinophils % (manual) 2 (0-7); Lymphocytes % (manual) 13 (10.0-50.0); Monocytes % (manual) 4 (0-12); Platelet Estimate Increased
--- NOTE | 2024-11-17 13:49 | DVHPN2 ---
Subjective Feeling well; ready for discharge Reviewed: Care Plan, H&P, Labs, Medications, Previous Orders, Radiology, Other (Consultations) Changes from previous H/P or p: Changes Objective Vitals Vital Signs Date Time Temp Pulse Resp B/P (MAP) Pulse Ox O2 Delivery O2 Flow Rate FiO2 11/17/24 11:00 64 18 11/17/24 10:59 96 11/17/24 09:00 98.1 127/46 (73) 98.1 11/17/24 08:24 Nasal Cannula* 2 28 Intake/Output Intake and Output 11/17/24 07:00 Intake Total 1400 ml Output Total 1050 ml Balance 350 ml Intake Oral 1300 ml IV Total 100 ml Output Urine Total 1050 ml # Voids 2 # Bowel Movements 4 General Appearance: Alert, Oriented X3, Cooperative, No acute distress Lungs: Other (Decreased air entry bilateral scattered crackles) Cardiovascular: Normal S1, Normal S2, Other (Irregularly irregular) Abdomen: Normal bowel sounds, Soft, No tenderness Neuro: Normal speech, Cranial nerves 3-12 NL Psych/Mental Status: Mental status NL, Mood NL Medications Current Medications Medications Dose Ordered Sig/Elke Route Start Time Stop Time Status Last Admin Dose Admin Aspirin 81 mg DAILY PO 11/10/24 10:00 11/17/24 08:42 81 MG Atorvastatin Calcium 20 mg HS PO 11/10/24 22:00 11/16/24 21:31 20 MG Ipratropium [place] 0.5 mg Q4HPRN PRN NEB 11/09/24 22:45 11/17/24 08:23 0.5 MG Diagnostic Test (Pha) 1 strip ACHS 11/10/24 07:00 11/17/24 11:17 1 STRIP Insulin Human Regular HS SC 11/10/24 22:00 11/16/24 21:41 2 UNITS Insulin Human Regular AC SC 11/10/24 07:00 11/17/24 11:18 2 UNITS Dextrose 50 ml UD PRN IV 11/09/24 22:45 Sodium Chloride 10 ml Q8HR IV 11/10/24 06:00 11/17/24 06:16 10 ML Acetaminophen/ Hydrocodone Bitart 1 tab Q4HP PRN PO 11/09/24 22:45 Ondansetron HCl 4 mg Q4HP PRN IV 11/09/24 22:45 Acetaminophen 650 mg Q6HP PRN PO 11/09/24 22:45 Morphine Sulfate 2 mg Q30M PRN IV 11/09/24 22:45 Levothyroxine Sodium 50 mcg QAM@0600 PO 11/10/24 06:00 11/17/24 06:15 50 MCG Metoprolol Succinate 25 mg DAILY PO 11/11/24 10:00 11/17/24 08:42 25 MG Enoxaparin Sodium 60 mg DAILY SC 11/11/24 10:00 11/17/24 08:43 60 MG Insulin Glargine 15 units QAM SC 11/11/24 07:00 11/16/24 06:29 15 UNITS Amiodarone HCl 200 mg Q12HR PO 11/12/24 22:00 11/17/24 08:42 200 MG Acetylcysteine 100 mg Q8HR NEB 11/13/24 14:00 11/17/24 08:23 100 MG Levalbuterol HCl 1.25 mg Q4HR NEB 11/13/24 22:00 11/17/24 10:58 1.25 MG Levofloxacin/ Dextrose 150 ml @ 100 mls/hr Q48H IV 11/18/24 10:00 Laboratory Results Laboratory Tests 11/17/24 05:06 Chemistry Test 11/17/24 05:06 Calcium Level 10.1 mg/dL (8.7-10.4) Magnesium Level 2.3 mg/dL (1.6-2.6) Urinalysis Test 11/12/24 14:00 Urine Color Light-yellow (Yellow) Urine Clarity Turbid (Clear) H Urine pH 5.5 (5.0-9.0) Urine Specific [place] 1.013 (1.001-1.035) Urine Protein Negative (Negative) Urine Ketones Negative (Negative) Urine Blood 1+ /uL (Negative) H Urine Nitrite Negative (Negative) Urine Bilirubin Negative (Negative) Urine Urobilinogen Normal mg/dL (Negative) Urine Leukocyte Esterase Negative /uL (Negative) Urine RBC 1 /hpf (0 - 4) Urine WBC 1 /hpf (0 - 5) Urine Squamous Epithelial Cells Few /hpf (<5) Urine Bacteria None seen /hpf (None Seen) Urine Mucus Few (None Seen) Urine Creatinine 19.71 mg/dL (30.0-125.0) L Urine Protein/Creatinine Ratio 1.17 Urine Sodium 53 mmol/L (40-220) Urine Glucose Normal mg/dL (Normal) Urine Total Protein 23.0 mg/dL (1-14) H Microbiology Microbiology Date/Time Source Procedure Growth Status 11/13/24 18:15 Sputum Gram Stain - Final Complete 11/13/24 18:15 Respiratory Culture - Final Citrobacter amalonaticus Complete 11/10/24 13:00 Nose MRSA Screen - Final Complete 11/09/24 23:50 Blood Blood Culture - Final NO GROWTH AFTER 5 DAYS OF INCUBATION. Complete Labs and/or images reviewed: Labs reviewed by me, Image(s) reviewed by me Assessment/Plan Assessment/Plan Covering Dr. Keane: #Acute hypoxic respiratory failure due to Citrobacter amalonaticus pneumonia; was on IV levofloxacin; PE ruled out; will be discharged home on home oxygen; prescribed orally levofloxacin; to follow up with discharge clinic/continuity clinic to clinic on November 19, 2024 #Community-acquired pneumonia; details as above #Sepsis due to Citrobacter amalonaticus pneumonia; details as above #EM likely hemodynamically mediated; was on IVF; to follow up with discharge clinic/continuity clinic to clinic on November 19, 2024 -IV fluids #New onset atrial fibrillation; was on therapeutic Lovenox; discharged on apixaban 5 mg twice a day; continue home metoprolol; discharge on oral amiodarone; received amiodarone infusion; to follow up with Cardiology within 2 to 4 weeks after following up with discharge clinic/continuity clinic to clinic on November 19, 2024 #Superficial venous thrombosis; was on therapeutic Lovenox; discharge on apixaban as above; to follow up with discharge clinic/continuity clinic to clinic on November 19, 2024 #NSTEMI; type 2 ME, demand ischemia; due to above; to follow up with Cardiology within 2 to 4 weeks after following up with discharge clinic/continuity clinic to clinic on November 19, 2024 #CAD; to continue home medications of aspirin and statin; to follow up with Cardiology within 2 to 4 weeks after following up with discharge clinic/continuity clinic to clinic on November 19, 2024 #Hyperlipidemia; to continue home statin; to follow up with discharge clinic/continuity clinic to clinic on November 19, 2024 #Hypertensive heart disease; continue home antihypertensive medications; to follow up with Cardiology within 2 to 4 weeks after following up with discharge clinic/continuity clinic to clinic on November 19, 2024 #Type 2 diabetes mellitus; was insulin sliding scale; to continue home metformin upon discharge; to follow up with discharge clinic/continuity clinic to clinic on November 19, 2024 #Hypothyroidism; to continue home levothyroxineto follow up with discharge clinic/continuity clinic to clinic on November 19, 2024 Late Entry. This medical document was created using an electronic medical record system with computerized dictation system. Although this document has been carefully reviewed, there might still be some phonetic and typographical errors. These areas are purely typographical due to imperfections of the software programs, and do not reflect any compromise in the patient's medical care. Plan discussed with: Patient, Other Date of Service: Nov 17, 2024 Billing Provider: ELVIS MARCELO MD Common Visit Codes: [id number] INP/OBS CARE(MOD) ELVIS MARCELO MD Nov 17, 2024 13:49
[2024-11-17] MEDS ORDERED: LEVO750T40 PO (16:08)
--- NOTE | 2024-11-17 16:09 | DVHDS2 ---
Discharge Summary Date of Admission Nov 09, 2024 at 22:36 Date of Discharge: Nov 17, 2024 Admitting Diagnosis Shortness of breath Labs/Diagnostic Data: Laboratory Results Test 11/17/24 05:06 11/16/24 04:54 11/15/24 14:15 11/14/24 11:19 White Blood Count 11.2 10^3/uL (4.4-10.8) Red Blood Count 4.13 10^6/uL (4.0-5.20) Hemoglobin 12.1 g/dL (12.2-16.2) Hematocrit 35.6 % (36.0-46.0) Mean Corpuscular Volume 86.2 fL (80.0-100.0) Mean Corpuscular Hemoglobin 29.2 pg (28.0-32.0) Mean Corpuscular Hemoglobin Concent 33.9 g/dL (32.0-36.0) Red Cell Distribution Width 16.3 % (11.8-14.3) Platelet Count 559 10^3/uL (140-450) Mean Platelet Volume 7.1 fL (6.9-10.8) Neutrophils (%) (Auto) % (37.0-80.0) Lymphocytes (%) (Auto) % (10.0-50.0) Monocytes (%) (Auto) % (0.0-12.0) Basophils (%) (Auto) % (0.0-2.0) Neutrophils # (Auto) 10 ^3/uL (1.6-8.6) Lymphocytes # (Auto) 10 ^3/uL (0.4-5.4) Monocytes # (Auto) 10 ^3/uL (0-1.3) Differential Total Cells Counted 100.0 (100) Neutrophils % (Manual) 74 (37.0-80.0) Band Neutrophils % (Manual) 7 Lymphocytes % (Manual) 13 (10.0-50.0) Monocytes % (Manual) 4 (0-12) Eosinophils % (Manual) 2 (0-7) Basophils % (Manual) 0 (0.0-2.0) Metamyelocytes % (manual) 0 Myelocytes % (Manual) 0 Promyelocytes % (Manual) 0 Blast Cells % (Manual) 0 Reactive Lymphocytes 0 Platelet Estimate Increased Sodium Level 136 mmol/L (136-145) Potassium Level 3.9 mmol/L (3.5-5.1) Chloride Level 99 mmol/L (98-107) Carbon Dioxide Level 31 mmol/L (20-31) Anion Gap 6 (5-15) Blood Urea Nitrogen 20 mg/dL (9-23) Creatinine 1.23 mg/dL (0.550-1.02) Glomerular Filtration Rate Calc 43 mL/min (>90) BUN/Creatinine Ratio 16.3 (10.0-20.0) Serum Glucose 97 mg/dL (74-106) Calcium Level 10.1 mg/dL (8.7-10.4) Magnesium Level 2.3 mg/dL (1.6-2.6) Eosinophils (%) (Auto) 3.2 % (0.0-7.0) Eosinophils # (Auto) 0.5 10 ^3/uL (0-0.8) Basophils # (Auto) 0.1 10 ^3/uL (0-0.2) Nucleated Red Blood Cells 0.4 % Giant Platelets Few Blood Gas Specimen Type Arterial Blood Gas Sample Site Right radial Blood Gas Patient Temperature 37.0 Arterial Blood Date Drawn [id number] Arterial Blood pH 7.481 (7.350-7.450) Arterial Blood Partial Pressure CO2 43.3 mmHg (32.0-45.0) Arterial Blood Partial Pressure O2 48.9 mmHg (83.0-108.0) Arterial Blood HCO3 31.6 mmol/L (21.0-28.0) Arterial Blood Oxygen Saturation 83.7 % (94.0-98.0) Arterial Blood Base Excess 7.3 mmol/L (-2.0-3.0) Arterial Blood Oxyhemoglobin 83.4 % (94.0-98.0) Arterial Blood Carboxyhemoglobin 0.3 % (0.5-1.5) Arterial Blood Methemoglobin 0.0 % (0.0-1.5) Tevin Test Yes Blood Gas Total Hemoglobin 14.10 g/dL (12.0-16.0) Blood Gas Modality Room air FiO2 % 21.0 Blood Gas Critical Value Read Back Yes Blood Gas Notified Whom Blood Gas Notified Time [id number] Blood Gas Notified By Greaser Operator mau POC Glucose 185 mg/dl (70-106) Test 1/2/25 07:37 11/12/24 14:00 11/11/24 23:00 11/11/24 17:38 B-Type Natriuretic Peptide 107.65 pg/mL (0-100) Urine Color Light-yellow (Yellow) Urine Clarity Turbid (Clear) Urine pH 5.5 (5.0-9.0) Urine Specific [place] 1.013 (1.001-1.035) Urine Protein Negative (Negative) Urine Ketones Negative (Negative) Urine Blood 1+ /uL (Negative) Urine Nitrite Negative (Negative) Urine Bilirubin Negative (Negative) Urine Urobilinogen Normal mg/dL (Negative) Urine Leukocyte Esterase Negative /uL (Negative) Urine RBC 1 /hpf (0 - 4) Urine WBC 1 /hpf (0 - 5) Urine Squamous Epithelial Cells Few /hpf (<5) Urine Bacteria None seen /hpf (None Seen) Urine Mucus Few (None Seen) Urine Creatinine 19.71 mg/dL (30.0-125.0) Urine Protein/Creatinine Ratio 1.17 Urine Sodium 53 mmol/L (40-220) Urine Glucose Normal mg/dL (Normal) Urine Total Protein 23.0 mg/dL (1-14) SARS-CoV-2 Antigen (Rapid) Negative (NEGATIVE) Phosphorus Level 3.1 mg/dL (2.4-5.1) Test 11/11/24 06:32 11/10/24 05:59 11/09/24 23:17 11/09/24 20:27 Lactic Acid Level 1.6 mmol/L (0.4-2.0) Uric Acid 8.6 mg/dL (3.1-7.8) Thyroid Stimulating Hormone (TSH) 1.69 uIU/mL (0.55-4.78) Random Vancomycin Level < 3.0 ug/mL (5-10) Hemoglobin A1c 7.0 % A1C (<5.7) Total Bilirubin 0.5 mg/dL (0.2-1.0) Aspartate Amino Transferase (AST) 25 U/L (13-40) Alanine Aminotransferase (ALT) 15 U/L (7-40) Alkaline Phosphatase 120 U/L (46-116) Total Protein 6.7 g/dL (5.7-8.2) Albumin 3.9 g/dL (3.2-4.8) Triglycerides Level 164 mg/dL (< 150) Cholesterol Level 119 mg/dL (< 200) LDL Cholesterol 43 mg/dL (< 100) HDL Cholesterol 35 mg/dL (40-59) Troponin I High Sensitivity 88 ng/L (</=34) Free Thyroxine (T4) Calculated 0.91 ng/dL (0.89-1.76) Test 11/09/24 20:05 Influenza Type A Antigen Negative (Negative) Influenza Type B Antigen Negative (Negative) Other Laboratory Tests 11/17/24 05:06 Brief Hx & Hospital Course: Covering Dr. Keane: An 84-year-old female patient; with multiple comorbidities; who presented to the emergency department with shortness of breath; details as below: #Acute hypoxic respiratory failure due to Citrobacter amalonaticus pneumonia; was on IV levofloxacin; initially was on IV ceftriaxone and azithromycin; PE ruled out; will be discharged home on home oxygen; prescribed orally levofloxacin; to follow up with discharge clinic/continuity clinic to clinic on November 19, 2024 #Citrobacter amalonaticus pneumonia; details as above #Sepsis due to Citrobacter amalonaticus pneumonia; with leukocytosis and lactic acidosis; details as above #EM likely hemodynamically mediated; was on IVF; to follow up with discharge clinic/continuity clinic to clinic on November 19, 2024 #New onset atrial fibrillation; was on therapeutic Lovenox; discharged on apixaban 5 mg twice a day; continue home metoprolol; discharge on oral amiodarone; received amiodarone infusion; to follow up with Cardiology within 2 to 4 weeks after following up with discharge clinic/continuity clinic to clinic on November 19, 2024 #Superficial venous thrombosis; was on therapeutic Lovenox; discharge on apixaban as above; to follow up with discharge clinic/continuity clinic to clinic on November 19, 2024 #NSTEMI; type 2 ME, demand ischemia; due to above; to follow up with Cardiology within 2 to 4 weeks after following up with discharge clinic/continuity clinic to clinic on November 19, 2024 #CAD; to continue home medications of aspirin and statin; to follow up with Cardiology within 2 to 4 weeks after following up with discharge clinic/continuity clinic to clinic on November 19, 2024 #Hyperlipidemia; to continue home statin; to follow up with discharge clinic/continuity clinic to clinic on November 19, 2024 #Hypertensive heart disease; continue home antihypertensive medications; to follow up with Cardiology within 2 to 4 weeks after following up with discharge clinic/continuity clinic to clinic on November 19, 2024 #Type 2 diabetes mellitus; was insulin sliding scale; to continue home metformin upon discharge; to follow up with discharge clinic/continuity clinic to clinic on November 19, 2024 #Hypothyroidism; to continue home levothyroxine; to follow up with discharge clinic/continuity clinic to clinic on November 19, 2024 Late Entry. This medical document was created using an electronic medical record system with computerized dictation system. Although this document has been carefully reviewed, there might still be some phonetic and typographical errors. These areas are purely typographical due to imperfections of the software programs, and do not reflect any compromise in the patient's medical care. Consults/Reason for consult Cardiology for new onset atrial fibrillation//Pulmonology for acute hypoxic respiratory failure//Nephrology for EM Condition at Discharge: Stable Final Diagnosis/Problems List Acute hypoxic respiratory failure; discharged on home oxygen Secondary Diagnosis: As above Discharge Disposition: Home (With home oxygen) Discharge Instruct/Medications Diet: Cardiac 2g Na,low cholest Activity: No Restrictions, As Tolerated Follow Up/Referral: To be seen in discharge clinic on November 19, 2024 Medications: Discharged on oral antibiotics levofloxacin to finish 14 days total; also discharged on amiodarone and apixaban Discharge Statement: "Patient was advised to return to the ER or call 911 if any headaches, dizziness, shortness of breath, chest pain, abdominal pain, bleeding, fevers, or worsening of medical condition. Patient was counseled about treatment plan, medications, possible side effects, patientverbalized understanding. All questions were answered to the best of my ability. This discharge took greater then 30 minutes in planning, reviewing documentation, counseling the patient, and discussing with other team members." ASSESSMENT ASSESSMENT Assessment Acute hypoxic respiratory failure; discharged on home oxygen Date of Service: Nov 17, 2024 Billing Provider: ELVIS MARCELO MD Common Visit Codes: 69120-DYR/OBS DISCH DAY >30min ELVIS MARCELO MD Nov 17, 2024 16:09
[2024-11-17] MEDS ORDERED: APIX5TAB4 PO (16:41)
[2024-11-17] MEDS ORDERED: AMIO200T13 PO (16:41)
[2024-11-18] MEDS ORDERED: levoFLOXacin 750MG 150 ML IV SCH (10:00)
== END 2024-11-17 18:40 | disposition home health service (06) | DRG 871 ==
LOC: ER 18:15 → EDBD 18:15 → TELE 22:36 → TELE-WESTW 11-10 16:32
PROVIDERS: ADMIT Internal Medicine; ATTEND Internal Medicine
DX: A41.59 Other Gram-negative sepsis (principal); I21.A1 Myocardial infarction type 2; J15.69 Pneumonia due to other Gram-negative bacteria; J96.01 Acute respiratory failure with hypoxia; N17.0 Acute kidney failure with tubular necrosis; J15.9 Unspecified bacterial pneumonia; E87.20 Acidosis, unspecified; I82.611 Acute embolism and thrombosis of superficial veins of right upper extremity; Z20.822 Contact with and (suspected) exposure to COVID-19; E11.22 Type 2 diabetes mellitus with diabetic chronic kidney disease; E11.51 Type 2 diabetes mellitus with diabetic peripheral angiopathy without gangrene; E78.5 Hyperlipidemia, unspecified; I25.10 Atherosclerotic heart disease of native coronary artery without angina pectoris; I48.91 Unspecified atrial fibrillation; N18.31 Chronic kidney disease, stage 3a; E03.9 Hypothyroidism, unspecified; I13.10 Hypertensive heart and chronic kidney disease without heart failure, with stage 1 through stage 4 chronic kidney disease, or unspecified chronic kidney disease; I25.2 Old myocardial infarction; Z87.891 Personal history of nicotine dependence; Z98.61 Coronary angioplasty status; Z88.1 Allergy status to other antibiotic agents; Z85.3 Personal history of malignant neoplasm of breast; Z90.11 Acquired absence of right breast and nipple; Z79.84 Long term (current) use of oral hypoglycemic drugs; Z79.82 Long term (current) use of aspirin; Z79.899 Other long term (current) drug therapy
CPT/HCPCS: 36415; 36600; 71045; 71046; 71275; 76775; 80048; 80053; 80061; 80202; 81001; 82570; 82805; 82962; 83036; 83605; 83735; 83880; 84100; 84156; 84300; 84439; 84443; 84484; 84550; 85007; 85025; 85027; 87040; 87070; 87077; 87081; 87186; 87205; 87426; 87804; 93005; 93306; 93970; 94640; 97110; 97116; 97163; 99291; G0378; J1815; J1956; J2543; J3490; J7060

== ENCOUNTER 2025-03-01 11:39 | Emergency (ER) | payer OTHER ==
[~2025-03-01] VITALS: Ht 162.6 cm; Wt 57.9 kg
[~2025-03-01 11:39] MED LIST changes: -ALPH300C PO; +AMIO200T13 PO; +AMLO1TAB23 PO; +APIX5TAB4 PO; -CHOL10009 PO; -CICL8SOL21 TOP; +CILO100T3 PO; -DIPH-753 PO; -DIPH1TAB30 PO; -DOCU100T15 PO; -ESCI1TAB36 PO; +EZET10TA22 PO; +FURO20TA4 PO; +LEVO750T40 PO; -MECL1TAB42 PO; +METO25TA93 PO; -NITR-87 PO; -PANT40TA2 PO; -SIME1CAP17 PO; -VALS1TAB57 PO
--- NOTE | 2025-03-01 12:23 | ED.PDOC ---
General HPI Comments 84 y/o F, with PMHx of HLD, Hypotension, and NJ presents to the ED for CC of hematuria. Patient states, that she has been experiencing hematuria since, early this morning (03/01/25). Patient relays, similar symptoms in the past. Patient denies fever, chills, back pain, vaginal discharge, or dysuria. No other associated symptoms, modifiers, recent injuries or sick contacts present at this time. Chief Complaint: Urinary Time Seen by MD: 12:15 Primary Care Provider: UNKNOWN Reviewed notes: Nurses Notes, Medications, Allergies Allergies: Coded Allergies: Tetanus Toxoid (Verified Allergy, Unknown, 07/30/19) Tetracycline (Verified Allergy, Unknown, 07/30/19) Home Meds Active Scripts Apixaban Base (Eliquis Starter Pack) 5 Mg Tab, 5 MG PO BID for 30 Days, #60 TAB Prov:ELVIS MARCELO MD 11/17/24 Amiodarone HCl (Amiodarone HCl) 200 Mg Tab, 200 MG PO Q12HR for 30 Days, #60 TAB Prov:ELVIS MARCELO MD 11/17/24 Levofloxacin Hemihydrate (LEVOFLOXACIN) 750 Mg Tab, 750 MG PO Q48HRS, #3 TAB Prov:ELVIS MARCELO MD 11/17/24 Reported Medications Ezetimibe (Zetia) 10 Mg Tab, 1 TAB PO DAILY, #30 TAB 5 Refills 11/10/24 Furosemide (Furosemide) 20 Mg Tab, 1 TAB PO DAILY 11/10/24 Cilostazol (Cilostazol) 100 Mg Tab, 1 TAB PO BID 11/10/24 Metoprolol Succinate (Metoprolol Succinate Er) 25 Mg Tab, 1 TAB PO DAILY 11/10/24 Amlodipine Besylate (Amlodipine Besylate) 10 Mg Tab, 1 TAB PO DAILY 11/10/24 Aspirin (Aspir-Low) 81 Mg Tab, 81 MG PO DAILY for 30 Days, MG 07/30/19 Oxybutynin Chloride (Ditropan Xl) 10 Mg Tab, 10 MG PO HS, TAB 07/30/19 Atorvastatin Calcium (Lipitor) 40 Mg Tab, 1 TAB PO QPM, #90 TAB 1 Refill 07/30/19 Metformin Hydrochloride (Metformin Hcl) 500 Mg Tab, 500 MG PO BID for 30 Days, MG 08/13/17 Levothyroxine Sodium (Levothyroxine Sodium) 25 Mcg Tab, 0.5 TAB PO QAM, MCG 08/13/17 Information Source: Patient Mode of Arrival: Ambulatory Severity: Moderate Inability to void: None Timing: Hours Duration: Since onset Prehospital treatment: None Onset: Spontaneous Symptoms: Hematuria History of: None Modifying factors: None associated signs and symptoms: Hematuria Past Medical History PAST MEDICAL HISTORY: CAD, High Lipids, Hypotension, [place] Surgical History: BTL, PTCA [employer] History: Denies all [employer] Hx Family History Family History: No family hx of HTN, Family hx of heart ksenia Social History Smoker: Quit Greater Than 1 Year Alcohol: Rarely Drugs: Denies Drug Use Lives In: Home Constitutional: denies: chills, diaphoresis, fatigue, fever, malaise, sweats, weakness, others EENTM: denies: blurred vision, double vision, ear bleeding, ear discharge, ear drainage, ear pain, ear ringing, eye pain, eye redness, hearing loss, mouth pain, mouth swelling, nasal discharge, nose bleeding, nose congestion, nose pain, photophobia, tearing, throat pain, throat swelling, voice changes, others Respiratory: denies: cough, hemoptysis, orthopnea, SOB at rest, shortness of breath, SOB with excertion, stridor, wheezing, others Cardiovascular: denies: chest pain, dizzy spells, diaphoresis, Dyspnea on exertion, edema, irregular heart beat, left arm pain, lightheadedness, palpitations, PND, syncope, others Gastrointestinal: denies: abdomen distended, abdominal pain, blood streaked bowels, constipated, diarrhea, dysphagia, difficulty swallowing, hematemesis, melena, nausea, poor appetite, poor fluid intake, rectal bleeding, rectal pain, vomiting, others Genitourinary: reports: hematuria; denies: abnormal vagina bleeding, burning, dyspareunia, dysuria, flank pain, frequency, incontinence, pain, , vagina discharge, urgency, others Neurological: denies: dizziness, fainting, headache, left sided numbness, left sided weakness, numbness, paresthesia, pre-existing deficit, right sided numbness, right sided weakness, seizure, speech problems, tingling, tremors, weakness, others Musculoskeletal: denies: back pain, gout, joint pain, joint swelling, muscle pain, muscle stiffness, neck pain, others Integumetry: denies: bruises, change in color, change in hair/nails, dryness, laceration, lesions, lumps, rash, wounds, others Allergic/Immunocompromised: denies: Difficulty Healing, Frequent Infections, Hives, Itching, others Hematologic/Lymphatic: denies: anemia, blood clots, easy bleeding, easy bruising, swollen glands, others Endocrine: denies: excessive hunger, excessive sweating, excessive thirst, excessive urination, flushing, intolerance to cold, intolerance to heat, unexplained weight gain, unexplained weight loss, others Psychiatric: denies: anxiety, bipolar disorder, depression, hopeless, panic disorder, schizophrenia, sleepless, suicidal, others All Other Systems: Reviewed and Negative Physical Exam General Appearance: Moderate Distress HEENT: Normal ENT Inspection, Pharynx Normal, TMs Normal Neck: Full Range of Motion, Non-Tender, Normal, Normal Inspection Respiratory: Chest Non-Tender, Lungs Clear, No Accessory Muscle Use, No Respiratory Distress, Normal Breath Sounds Cardiovascular: No Edema, No JVD, No Murmur, No Gallop, Normal Peripheral Pulses, Regular Rate/Rhythm Breast Exam: Deferred Gastrointestinal: No Organomegaly, Non Tender, No Pulsatile Mass, Normal Bowel Sounds, Soft Genitalia: Deferred Pelvic: Deferred Rectal: Deferred Extremities: No calf tenderness, Normal capillary refill, Normal inspection, Normal range of motion, Non-tender, No pedal edema Musculoskeletal : Apperance: Normal Neurologic: Alert, intrusion analyst II-XII nml as Tested, No Motor Deficits, Normal Affect, Normal Mood, No Sensory Deficits Cerebellar Function: Normal Reflexes: Normal Skin: Dry, Normal Color, Warm Peripheral Pulses: 3+ Radial (R), 3+ Radial (L) Lymphatic: No Adenopathy Was a procedure done? Was a procedure done?: No Differential Diagnosis Kidney stone (Female): Musculoskeletal pain, Urinary obstruction, Urolithiasis Urinary Problem (Female): Urolithiasis, UTI X-Ray, Labs, Meds, VS Vital Signs Date Time Temp Pulse Resp B/P (MAP) Pulse Ox O2 Delivery O2 Flow Rate FiO2 03/01/25 11:49 97.9 84 16 151/69 (96) 94 97.9 Patient alert. Complaining of being blood. Was seen in urgent Care prior to coming here. Vitals stable. Answering questions. She does infrequently get these kind of symptoms. Last time she had symptoms like this they prescribed Cipro. She was given prescription of Macrobid antibiotic. No leg swelling. No chest pain. No shortness a breath. Physical examination is pristine. Reviewed her history. Explained to the patient. Explained to the patient. Was told to follow up with her primary care physician. Was told to come back if there is any problem. Time of 1ST Reevaluation: 12:45 Reevaluation 1ST: Unchanged Patient Education/Counseling: Diagnosis, Treatment Family Education/Counseling: No Family Present Departure 1 Departure Time of Disposition: 12:46 Impression: Primary Impression: UTI (urinary tract infection) Qualified Codes: N30.01 - Acute cystitis with hematuria Disposition: HOME / SELF CARE / HOMELESS Condition: Good e-Prescriptions Nitrofurantoin Monohydrate Mac (Macrobid) 100 Mg Cap 100 MG PO BID for 10 Days, #20 CAP Prov: DEEPAK NICHOLS MD 03/01/25 Discharged With: Self Critical Care Note Critical Care Time?: No Stability Stability form required: No Heart Score Heart Score: Heart Score Response (Comments) Value History N/A 0 EKG N/A 0 Age N/A 0 Risk Factors N/A 0 Troponin N/A 0 Total 0 I personally scribed for DEEPAK NICHOLS MD ([email or web address]) on 03/01/25 at 12:23. Electronically submitted by Chayo Henry ([email or web address]). DEEPAK NICHOLS MD Mar 01, 2025 12:23
[2025-03-01 12:47] VITALS: BP 172/71; PULSE 70; TEMP 98.2
[2025-03-01] MEDS ORDERED: NITR-87 PO (12:47)
[2025-03-01 12:50] VITALS: RESP 16; O2SAT 96
[2025-03-01] MEDS: CIPROFLOXACIN HCL 500 MG TAB PO ONE (12:55)
== END 2025-03-01 12:59 | disposition home or self-care (01) ==
LOC: ER 11:39
DX: N39.0 Urinary tract infection, site not specified (principal); I25.10 Atherosclerotic heart disease of native coronary artery without angina pectoris; E78.5 Hyperlipidemia, unspecified; I25.2 Old myocardial infarction; Z98.51 Tubal ligation status; Z88.7 Allergy status to serum and vaccine; Z88.1 Allergy status to other antibiotic agents; Z79.899 Other long term (current) drug therapy; Z79.84 Long term (current) use of oral hypoglycemic drugs; Z79.82 Long term (current) use of aspirin; Z79.02 Long term (current) use of antithrombotics/antiplatelets; Z79.01 Long term (current) use of anticoagulants

== ENCOUNTER → 2025-04-04 | Outpatient (CLI) | payer OTHER ==
[~2025-04-04] MED LIST changes: +NITR-87 PO
[2025-04-04 10:36] LABS: Basophils % (auto) 0.8 % (0.0-2.0); Hemoglobin 13.1 g/dL (12.2-16.2); Lymphocytes # (auto) 1.3 10 ^3/uL (0.4-5.4); Mean Corpuscular Hemoglobin 26.9 pg (28.0-32.0); Monocytes # (auto) 0.7 10 ^3/uL (0-1.3)
[2025-04-04 10:38] LABS: Basophils # (auto) 0 10 ^3/uL (0-0.2); Eosinophils # (auto) 0.2 10 ^3/uL (0-0.8); Eosinophils % (auto) 3.9 % (0.0-7.0); Hematocrit 40.3 % (36.0-46.0); Lymphocytes % (auto) 21.3 % (10.0-50.0); Mean Corpuscular Hgb Conc. 32.6 g/dL (32.0-36.0); Mean Corpuscular Volume 82.5 fL (80.0-100.0); Monocytes % (auto) 10.9 % (0.0-12.0); Neutrophils % (auto) 63.1 % (37.0-80.0); Platelet Count (auto) 399 10^3/uL (140-450); Red Blood Cells 4.89 10^6/uL (4.0-5.20); White Blood Cell 6.3 10^3/uL (4.4-10.8)
[2025-04-04 11:14] LABS: Alanine Aminotransferase 24 U/L (7-40); Albumin 4.7 g/dL (3.2-4.8); Alkaline Phosphatase 89 U/L (46-116); Anion Gap 9 (5-15); Aspartate Aminotransferase 22 U/L (13-40); BUN/Creatinine Ratio 25.2 (10.0-20.0); Bilirubin, Total 0.4 mg/dL (0.2-1.0); Carbon Dioxide 29 mmol/L (20-31); Chloride 103 mmol/L (98-107); Potassium 5.1 mmol/L (3.5-5.1); Sodium 141 mmol/L (136-145); Total Protein 7.6 g/dL (5.7-8.2)
[2025-04-04 11:16] LABS: Blood Urea Nitrogen 34 mg/dL (9-23); Calcium 11.2 mg/dL (8.7-10.4); Glucose 121 mg/dL (74-106)
== END | disposition home or self-care (01) ==
LOC: LAB 10:13
PROVIDERS: ATTEND Internal Medicine
DX: I13.0 Hypertensive heart and chronic kidney disease with heart failure and stage 1 through stage 4 chronic kidney disease, or unspecified chronic kidney disease (principal); E11.22 Type 2 diabetes mellitus with diabetic chronic kidney disease; N18.31 Chronic kidney disease, stage 3a; I50.9 Heart failure, unspecified
CPT/HCPCS: 36415; 80053; 83036; 84439; 85025

== ENCOUNTER 2025-06-20 09:54 | Outpatient (CLI) | payer OTHER ==
[2025-06-20 10:53] LABS: Hemoglobin 13.3 g/dL (12.2-16.2); Mean Corpuscular Hemoglobin 26.8 pg (28.0-32.0)
[2025-06-20 10:55] LABS: Hematocrit 40.6 % (36.0-46.0); Mean Corpuscular Volume 81.6 fL (80.0-100.0); Nucleated Red Blood Cells % 0.0 %
[2025-06-20 11:14] LABS: Alanine Aminotransferase 24 U/L (7-40); Albumin 4.5 g/dL (3.2-4.8); Alkaline Phosphatase 79 U/L (46-116); Anion Gap 7 (5-15); BUN/Creatinine Ratio 16.2 (10.0-20.0); Blood Urea Nitrogen 21 mg/dL (9-23); Calcium 10.0 mg/dL (8.7-10.4); Carbon Dioxide 29 mmol/L (20-31); Chloride 105 mmol/L (98-107); Cholesterol 167 mg/dL (< 200); Glucose 106 mg/dL (74-106); Magnesium 2.3 mg/dL (1.6-2.6); Potassium 4.9 mmol/L (3.5-5.1); Sodium 141 mmol/L (136-145); Total Protein 7.0 g/dL (5.7-8.2); Triglycerides 103 mg/dL (< 150)
[2025-06-20 11:15] LABS: Bilirubin, Total 0.5 mg/dL (0.2-1.0); HDL Cholesterol 50 mg/dL (40-59)
== END 2025-06-20 17:00 | disposition home or self-care (01) ==
LOC: LAB 09:54
PROVIDERS: ATTEND Internal Medicine
DX: I11.0 Hypertensive heart disease with heart failure (principal); I50.32 Chronic diastolic (congestive) heart failure; E11.9 Type 2 diabetes mellitus without complications
CPT/HCPCS: 36415; 80053; 80061; 83036; 83735; 83880; 84439; 85025

== ENCOUNTER → 2025-09-05 | Outpatient (CLI) | payer OTHER ==
[2025-09-05 16:29] LABS: INR 1.72 (0.9-1.15); Prothrombin Time 17.3 sec (9.3-11.8)
== END | disposition home or self-care (01) ==
LOC: LAB 15:53
DX: D68.69 Other thrombophilia (principal); I48.0 Paroxysmal atrial fibrillation
CPT/HCPCS: 36415; 85610

== ENCOUNTER 2025-10-07 08:54 | Outpatient (CLI) | payer OTHER ==
[2025-10-07 09:25] LABS: Alanine Aminotransferase 35 U/L (7-40); Albumin 4.6 g/dL (3.2-4.8); Alkaline Phosphatase 101 U/L (46-116); Anion Gap 11 (5-15); BUN/Creatinine Ratio 24.8 (10.0-20.0); Carbon Dioxide 29 mmol/L (20-31); Chloride 105 mmol/L (98-107); Sodium 145 mmol/L (136-145); Total Protein 7.6 g/dL (5.7-8.2)
[2025-10-07 09:26] LABS: Bilirubin, Total 0.4 mg/dL (0.2-1.0)
[2025-10-07 09:28] LABS: Blood Urea Nitrogen 34 mg/dL (9-23); Calcium 10.4 mg/dL (8.7-10.4); Glucose 134 mg/dL (74-106)
[2025-10-07 09:30] LABS: Potassium 5.7 mmol/L (3.5-5.1)
== END 2025-10-07 17:00 | disposition home or self-care (01) ==
LOC: LAB 08:54
PROVIDERS: ATTEND Urology
DX: R31.0 Gross hematuria (principal)
CPT/HCPCS: 36415; 80053